=== PATIENT | male | born 1955 | race Caucasian/White ===

== ENCOUNTER 2019-12-20 08:19 | Outpatient (CLI) | payer MEDICARE, SELFPAY ==
[2019-12-20 09:18] LABS: Basophils % 0.5 %; Eosinophils # 0.1 10^3/uL (0.0-0.8); Eosinophils % 1.6 %; Hematocrit 45.7 % (42.0-52.0); Hemoglobin 15.5 g/dL (11.7-16.6); Lymphocytes # 1.7 10^3/uL (0.8-4.8); Lymphocytes % 29.3 %; Mean Corpuscular HGB Conc 33.9 g/dL (30.0-36.0); Mean Corpuscular Hemoglobin 30.2 pg (28.0-34.0); Mean Corpuscular Volume 89.1 fL (80-94); Mean Platelet Volume 8.8 fL (7.4-10.4); Monocytes # 0.5 10^3/uL (0.2-0.9); Monocytes % 7.9 %; Neutrophils # 3.4 10^3/uL (1.8-7.7); Neutrophils % 60.5 %; Nucleated Red Blood Cells % 0 %; Platelet Count 366 10^3/cmm (130-400); Red Blood Count 5.13 10^6/uL (4.1-5.3); Red Cell Distribution Width 12.1 % (12.1-15.1); White Blood Count 5.7 10^3/uL (4.0-10.0)
[2019-12-20 09:34] LABS: Albumin Level 4.3 g/dL (3.5-5.2); Chloride 99 mmol/L (98-107); Potassium 4.1 mmol/L (3.5-5.1); Sodium 137 mmol/L (136-145)
[2019-12-20 10:08] LABS: Alanine Aminotransferase 17 U/L (0-41); Alkaline Phosphatase 74 IU/L (40-130); Anion Gap 15.2 (5-19); Aspartate Amino Transferase 19 U/L (0-40); Blood Urea Nitrogen 12 mg/dL (8-23); Calcium 9.5 mg/dL (8.5-10.5); Carbon Dioxide 27 mmol/L (22-29); Globulin 2.7 g/dL (1.3-4.6); Glomerular Filtration Rate 113.5 mL/min (90-130); Glucose 101 mg/dL (65-115); Osmolality Calculated 286 mOsm/kg (285-295); Total Bilirubin 0.5 mg/dL (0.15-1.2)
[2019-12-20 10:55] LABS: Ferritin 272 ng/mL (30-400); Iron 142 ug/dL (59-158); Percent Saturation 79.7 % (20-50); Total Iron Binding Capacity 178 mcg/dl; Unsaturated Iron Binding 36 ug/dL (112-347)
--- NOTE | 2019-12-20 19:52 | ONC CON_ITS ---
Dr. Arroyo New Patient Note Patient: Milan Winters Unit #: [id number]: 1955 Dicatated By: Jake Arroyo M.D.Date of Visit: Dec 20, 2019 Onc MED New Patient/Consult Referring Physician: Lamonte Medrano Chief Complaint: Hemochromatosis/hepatitis C History of Present Illness: This is a 64 year-old man with hereditary hemochromatosis. He has additional history of treated hepatitis C. The hemochromatosis was initially diagnosed in 2002. He was living in [place] at that time, and I did not get those records. I did not have results of his HFE gene study, if one had even been done. His initial ferritin level apparently was greater than 3000. He was managed with phlebotomies. I had seen him initially in 2003, and had continued his phlebotomy program. However, during the course of his treatment, he was found to have converted to positive hepatitis C serology. He was treated with a course of ribavirin and pegylated interferon between October of 2005 and December of 2006. The treatment was complicated by worsening depression and acute psychosis, but that was able to be managed adequately and he did have a good clinical response to the treatment. His quantitative hepatitis C PCR had remained undetectable during his subsequent followup. He was last seen here in March 2016. He had subsequently left the area, and he has just recently returned. His other medical illnesses, in addition to the chronic anxiety/depression, include severe COPD and degenerative arthritis. He also had recurrent episodes of nausea/vomiting. An upper GI endoscopy in January 2014 showed evidence of bile reflux. He had undergone cholecystectomy back in July 2005. In the past, it was suspected that he had coronary artery disease. A coronary angiogram in January 2004 showed some mild muscle bridging in the mid left anterior descending coronary artery, but the coronary arteries otherwise appeared normal. His only other surgery was a right inguinal hernia repair at age 17. He has a history of smoking 2 packs of cigarettes daily. He quit smoking in 2001. He is seen for a follow-up visit at his request. He has some records from a clinic in [place]. Included are laboratory studies from February 2019. At that time his CBC showed hemoglobin 16.2 g with hematocrit 53%. The white blood cell count was 4700 and the platelet count was 271,000. Comprehensive metabolic profile showed normal renal function with BUN 12 and creatinine 0.85 mg/dL. The liver enzymes were normal. His TSH level was normal at 1.68 mIU/L and his hemoglobin A1c was normal at 4.9%. His serum iron studies show transferrin saturation 46%. The serum ferritin was a little above target at 105 ng/mL. He has not been feeling good generally. He has limited activity due to his shortness of breath and back pain. He is trying to do some walking. He really is not capable of any work activity. His ECOG score is 2. His appetite is been okay, but he does not eat very well, mainly due to early satiety. He has had weight loss. He indicates that in January 2018 he weighed 198 pounds. That is very unlikely to be accurate, as we documented a weight of 151 pounds at his visit in March 2016. He has, nonetheless, lost weight. He does not have fever. He does have night sweating, which is chronic. He has shortness of breath and he has cough productive of white sputum. He is on a generic Advair inhaler and Spiriva along with a rescue inhaler. He does not complain of chest pain. He had been having recurrent episodes of nausea/vomiting, and the previous EGD in 2013 had shown evidence of bile reflux. As noted, he does have early satiety, but he currently is not having nausea or acid reflux symptoms and his bowel function has been normal. He does report having more frequent urination. He also has developed a new hernia on the right side. He has pain in his lower back on the right side. It radiates around to the flank area. He has had prior neck and back injuries. He also has pains in his hands all the time. He does not complain of headache. He has occasional lightheadedness. He says he does not have much feeling in his fingertips. He has no other focal neurologic symptoms. Past Medical History: His medical history consists of chronic obstructive pulmonary disease, degenerative arthritis, depression, hereditary hemochromatosis, and treated hepatitis C. Past Surgical History: His surgical/procedural history includes right inguinal hernia repair at age 17, cholecystectomy in 2005, and EGD in 2013. Medications: Spiriva HandiHaler 1 (18 mcg) Capsule Inhalation daily, Ventolin HFA 1 (108 (90 Base) mcg/act) Aerosol, solution Inhalation daily PRN, Wixela Inhub 1 Puff(s) (of 500-50 mcg/dose) Aerosol Powder, Breath Activated Inhalation b.i.d. Allergies: No Known Allergies. Social History: Mr. Winters is legally . He has a history of smoking 2 packs of cigarettes daily. He quit in 2001. He had significant alcohol use in the past, but he quit in 1980. He now just has a very occasional chelo for medicinal purposes. Family History: His family history is significant for a brother and 2 nephews with hemochromatosis. Mother with hepatobiliary cancer. Review Of Symptoms: Constitutional - He has very limited activity. Appetite is not bad, but he has early satiety. He has had significant weight loss, in the ranage of 70 lbs since 2018. No fever. He does have some night sweating. ECOG score is 2, Eyes - He thinks he has a cataract in his left eye, ENMT - No hearing loss or tinnitus. Lately he has had sinus congestion/drainage. No mouth sores. No sore throat or difficulty swallowing, Hematologic/Lymphatic - He has easy bruising, Respiratory - He has shortness of breath. He has chronic cough productive of clear sputum. No pleuritic pain or hemoptysis, Cardiovascular - No angina pain. No palpitations, Gastrointestinal - Currently no nausea or vomiting. No heartburn or acid reflux. No diarrhea or constipation. No blood in the stool or black stools, Genitourinary (M) - No dysuria or hematuria. He is voiding more frequently now. No urgency or incontinence. He has a hernia in the right lower quadrant/right groin area. He has some pain in that area, Musculoskeletal - He has pain in his lower back on the right side. It radiates around to the flank area. He also has pain in both hands, Integumentary - No skin rash or other skin changes, Neurologic - No headache. He occasionally feels lightheaded. He does not have much feeling in his fingertips. He has no other focal neurologic symptoms, Psychiatric - No anxiety. He does have some depression. He periodically wakes up during the night-. Vital Signs: Performed on Dec 20, 2019 09:53: 10, 19.13, 1.68 sq.m, 68.00 in, 99 %, 90 /min, 24 /min, 116/82 mm(hg), 98.5 F, 125.8 lbs (LOW), and Performed on Apr 22, 2015 09:07: 0. Physical Examination: Constitutional - He appears chronically ill, Eyes - Sclerae nonicteric. Conjunctivae clear, ENMT - No lesions noted in the oral cavity, Hematologic/Lymphatic - No cervical, clavicular, or axillary adenopathy, Respiratory - Lungs show diminished air movement with coarse breath sounds bilaterally, Cardiovascular - Heart rhythm is regular. There is no murmur, gallop, or rub noted, Abdomen - Soft with evidence of wasting. Liver and spleen are not enlarged. There is no abdominal mass or ascites noted and there is no inguinal adenopathy. There is a hernia in the medial right lower quadrant near the groin, Back/Spine - No spine or CVA tenderness noted, Extremities - No edema. Pedal pulses are palpable bilaterally, Integumentary - No rashes. No suspicious skin lesions noted, Neurologic - No focal neurologic deficits noted. Impression: 1. Patient with hereditary hemochromatosis. His disease has been managed very well with phlebotomy. His serum iron studies and ferritin from February 2019 were slightly above target range. 2. He has severe COPD. 3. He has had weight loss and declining performance status. This may just be due to the COPD, but I am also concerned about the possibility of underlying malignancy, as he also had previously been on surveillance for a right upper lobe noncalcified pulmonary nodule. It was stable as of his CT in February 2016. 4. He underwent treatment for hepatitis C with ribavirin/pegylated interferon from October 2005 through December 2006. 5. He has history of major depression which worsened during the hepatitis C treatment. 6. He has degenerative arthritis/degenerative disease of the spine with chronic back pain. 7. He has a new right lower quadrant/inguinal hernia. Plan: The patient will have laboratory studies today to include CBC, comprehensive metabolic profile, serum iron studies and ferritin, and a quantitative PCR for hepatitis C. He will be scheduled for CT scans of the chest and of the abdomen/pelvis. He will have further evaluation as indicated, and he also will restart phlebotomies for the hemochromatosis as indicated. He will continue his current medications which are limited to the generic Advair 5/500 twice daily, Spiriva 18 mcg daily, and the rescue inhaler as needed. Signed By: Jake Arroyo M.D. <<Signature on File>>
[2019-12-21 16:21] LABS: HEP C RNA Viral Load Quant <1.18 NOT DETECTED Log IU/mL (NOT DETECTED); HEP C RNA Viral Load Quant <15 NOT DETECTED IU/mL (NOT DETECTED)
== END 2019-12-20 08:20 | disposition home or self-care (01) ==
LOC: ONCMED 08:31
PROVIDERS: Visit Provider Internal Medicine Medical Oncology
DX: E83.110 Hereditary hemochromatosis (principal); J44.9 Chronic obstructive pulmonary disease, unspecified; R63.4 Abnormal weight loss; Z86.19 Personal history of other infectious and parasitic diseases; F32.9 Major depressive disorder, single episode, unspecified; M47.9 Spondylosis, unspecified; R10.31 Right lower quadrant pain; K40.90 Unilateral inguinal hernia, without obstruction or gangrene, not specified as recurrent
CPT/HCPCS: 36415; 80053; 82728; 83540; 83550; 85025; 87522; 99205

== ENCOUNTER 2019-12-27 07:47 | Outpatient (CLI) | payer MEDICARE, MEDICAID, SELFPAY ==
--- NOTE | 2019-12-27 08:00 | CT_ITS ---
WS: [id number] CT CHEST, ABDOMEN, AND PELVIS TECHNIQUE: Contrast-enhanced CT of the chest, abdomen, and pelvis with coronal and sagittal reformatt ed images. CLINICAL INFORMATION: SHORTNESS OF BREATH, COUGH, RLQ PAIN, WEIGHT LOSS COMPARISON: CT chest March 10, 2016 DLP: 1632.[address] scans at [facility] use at least one of these dose optimization techniques: automat ed exposure control; mA and/or kV adjustment per patient size (includes targeted exams where dose is matched to clinical indication); or iterative reconstruction. CT CHEST: Stable pulmonary nodule in the right upper lobe. Additional new spiculated nodule in the right upper lobe measuring 9.6 mm. Adjacent noncalcified nodule measuring 6 mm. Advanced chronic emphysematous change. Additional new noncalcified nodules in the left lower lobe measuring 7 mm and 3 mm. Subsegmental atel ectasis in the left lower lobe posteriorly. Fibrosis in the lingula. No mediastinal or hilar lymphade nopathy. Normal caliber thoracic aorta. No axillary lymphadenopathy. CT ABDOMEN AND PELVIS: Low-attenuation lesions along the falciform ligament and right hepatic lobe likely focal fat and smal l hemangiomas. Cholecystectomy clips. Normal portal vein and splenic vein. Normal spleen. Normal GE j unction. Normal pancreas. Adrenal glands are normal. Normal renal parenchymal enhancement. No hydrone phrosis. Small right renal cyst. Normal caliber abdominal aorta. Aortic calcification. Sigmoid diverticulosis. Incidental fat-containing umbilical hernia. Calcified prostate. Partially vis ualized low-attenuation peripheral enhancing collection involving the perineum measuring 5.4 x 3.1 CM . 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 CT/CT chest abd pel w con* IMPRESSION: 1. New spiculated nodule right upper lobe measuring 9.6 mm nonspecific and sma ll neoplasm is not excluded. This can be further evaluated with PET/CT. Recomme nd [address] follow-up. 2. Additional new 6 mm noncalcified right upper lobe nodule. Additional smalle r new nodules in the left lower lobe measuring 3 and 7 mm. Recommend 3-6 month follow-up. 3. Additional stable 5 mm nodule in the right upper lobe. 4. Advanced chronic emphysematous changes. 5. Mild diffuse fatty infiltration the liver with a few small low-attenuation lesions likely focal fat and small hemangiomas. 6. Incidental right renal cyst. 7. No adenopathy in the abdomen or pelvis. 8. Periurethral cystic lesion partially visualized measuring 5.4 x 3.1 cm like ly Cowper's duct cyst.
[2019-12-27] MEDS: iohexol 300 mg/mL 50 mL Btl PO (09:53)
[2019-12-27] MEDS: iohexol 300 mg/mL 100 mL Btl IV (10:10)
[2019-12-27 12:28] LABS: Basophils % 0.5 %; Eosinophils # 0.1 10^3/uL (0.0-0.8); Eosinophils % 1.6 %; Hematocrit 42.5 % (42.0-52.0); Hemoglobin 14.8 g/dL (11.7-16.6); Lymphocytes # 1.6 10^3/uL (0.8-4.8); Lymphocytes % 41.1 %; Mean Corpuscular HGB Conc 34.8 g/dL (30.0-36.0); Mean Corpuscular Hemoglobin 30.6 pg (28.0-34.0); Mean Platelet Volume 9.3 fL (7.4-10.4); Monocytes # 0.3 10^3/uL (0.2-0.9); Neutrophils # 1.9 10^3/uL (1.8-7.7); Neutrophils % 49.8 %; Nucleated Red Blood Cells % 0 %; Platelet Count 265 10^3/cmm (130-400); Red Blood Count 4.83 10^6/uL (4.1-5.3); Red Cell Distribution Width 12.3 % (12.1-15.1); White Blood Count 3.8 10^3/uL (4.0-10.0)
== END 2019-12-27 07:48 | disposition home or self-care (01) ==
LOC: RADWPI 07:50 → ONCMED 11:29
PROVIDERS: Visit Provider Internal Medicine Medical Oncology
DX: E83.110 Hereditary hemochromatosis (principal); B19.20 Unspecified viral hepatitis C without hepatic coma; F32.9 Major depressive disorder, single episode, unspecified; J44.9 Chronic obstructive pulmonary disease, unspecified
CPT/HCPCS: 71260; 74177; 85025; 99195; Q9967

== ENCOUNTER 2020-01-05 15:15 | Emergency (ER) | payer MEDICARE, SELFPAY ==
[2020-01-05 15:51] VITALS: BP 96/63; PULSE 77; RESP 18; TEMP 36.6; O2SAT 97; BMI 21.2
--- NOTE | 2020-01-05 17:22 | ED_ITS ---
HPI - Abdominal Pain General: Chief Complaint: Abdominal Pain Stated Complaint: poss hernia Time Seen by Provider: 01/05/20 17:20 History of Present Illness: Associated Symptoms: Denies chills, constipation, diarrhea, dysuria, fever(s), hematochezia, hematuria, nausea and vomiting Review of Systems Const: Denies: fever(s), chills or fatigue Eyes: Denies: change in vision or eye discomfort ENMT: Denies: throat pain, odynophagia, nasal discharge or nasal congestion Card: Denies: chest pain, palpitations, edema, swelling of feet/ankles, dyspnea on exertion or orthopnea Resp: Denies: dyspnea, productive cough or non-productive cough GI: Denies: abdominal pain, nausea, vomiting, diarrhea, constipation or hematochezia : Denies: flank pain, difficulty urinating, dysuria or hematuria Musc: Denies: neck pain, back pain or extremity swelling Skin/Breast: Denies: rash or new lesions Neuro: Denies: headache(s), numbness in extremities or weakness in extremities PFSH ED PFSH: Social History Smoking and tobacco status: former smoker Physical Exam Const: COMMON NORMALS: patient oriented x3 HENMT: COMMON NORMALS: normocephalic HEAD & SCALP: normocephalic MOUTH: Normal oral and palatal mucosa present THROAT: posterior oropharynx normal and uvula midline Neck/C-Spine: COMMON NORMALS: supple GENERAL: Yes normal visual inspection Resp: COMMON NORMALS: normal respiratory effort, No retractions, No use of accessory muscles and clear to auscultation bilaterally AUSCULTATION: clear to auscultation bilaterally Cardio: COMMON NORMALS: regular rate, regular rhythm, S1 normal heart sound p resent, S2 normal heart sound present, No gallops present (Cardio), No clicks present (Cardio), No murmurs present (Cardio) and Peripheral pulses 2+ throughout RATE: regular rate RHYTHM: regular rhythm HEART SOUNDS: S1 normal heart sound present and S2 normal heart sound present PERIPHERAL PULSES: Peripheral pulses 2+ throughout GI: COMMON NORMALS: Normal to inspection, nondistended, normoactive bowel sounds present, Soft to palpation, non-tender and no masses PALPATION: Yes Soft to palpation : COMMON NORMALS: Yes no CVA tenderness BLADDER/KIDNEY EXAM: Yes no CVA tenderness Back/Pelvis: COMMON NORMALS: no CVA tenderness Neuro: COMMON NORMALS: patient oriented x3 GAIT: Yes Normal gait present Course Vital Signs: Vital signs: Vital Signs Temperature 97.8 F 01/05/20 15:51 Pulse Rate 77 01/05/20 15:51 Respiratory Rate 18 01/05/20 15:51 Blood Pressure 96/63 01/05/20 15:51 Pulse Oximetry 97 01/05/20 15:51 Coding Level of Care Code ED [employer] for Alissa Hinson
--- NOTE | 2020-01-05 17:30 | W.ED.ABDPA2 ---
HPI - Abdominal Pain General: Chief Complaint: Abdominal Pain Stated Complaint: poss hernia Time Seen by Provider: 01/05/20 17:20 History of Present Illness: HPI narrative: Patient is a 64-year-old male who comes to the ED with abdominal pain. The abdominal pain is located in the right groin area and says he has a hernia. It started back in October and has since gotten larger and more painful. He is able to reduce it on his own. He patient did have a scheduled evaluation with the surgeon up in [place] due to COVID appointment was canceled. Now patient is moved back to the [facility] and would like to get hernia fixed. MD elicited complaint: abdominal pain Pertinent past history: other (Left Inguinal hernia) Onset (ago): month(s) (Pt first noticed in back in October) Pain Consistency: intermittent Location: Groin (Right ) Severity: moderate Pain scale (0-10): 10 (Patient states when the hernia pops out when he is moving around or coughing the pain is a 10 out of 10.) Quality: aching and sharp Radiation: none Migration to: no migration Exacerbating factors: movement Relieving factors: rest and other (reducing the hernia relieves the pain.) Associated Symptoms: Denies chills, constipation, diarrhea, dysuria, fever(s), hematochezia, hematuria, nausea and vomiting Review of Systems Const: Denies: fever(s), chills or fatigue Eyes: Denies: change in vision or eye discomfort ENMT: Denies: throat pain, odynophagia, nasal discharge or nasal congestion Card: Denies: chest pain, palpitations, edema, swelling of feet/ankles, dyspnea on exertion or orthopnea Resp: Denies: dyspnea, productive cough or non-productive cough GI: Reports: abdominal pain; Denies: nausea, vomiting, diarrhea, constipation or hematochezia : Denies: flank pain, difficulty urinating, dysuria or hematuria Musc: Denies: neck pain, back pain or extremity swelling Skin/Breast: Denies: rash or new lesions Neuro: Denies: headache(s), numbness in extremities or weakness in extremities PFSH ED PFSH: Social History Smoking and tobacco status: former smoker Physical Exam Const: COMMON NORMALS: no acute distress, patient oriented x3 and alert GENERAL APPEARANCE: cooperative and comfortable HENMT: COMMON NORMALS: normocephalic HEAD & SCALP: normocephalic MOUTH: Normal oral and palatal mucosa present THROAT: posterior oropharynx normal and uvula midline Eye: COMMON NORMALS: Equal, round and reactive pupils present PUPIL: Yes Equal, round and reactive pupils present Neck/C-Spine: COMMON NORMALS: supple GENERAL: Yes normal visual inspection Resp: COMMON NORMALS: normal respiratory effort, No retractions, No use of accessory muscles and clear to auscultation bilaterally AUSCULTATION: clear to auscultation bilaterally Cardio: COMMON NORMALS: regular rate, regular rhythm, S1 normal heart sound present, S2 normal heart sound present, No gallops present (Cardio), No clicks present (Cardio), No murmurs present (Cardio) and Peripheral pulses 2+ throughout RATE: regular rate RHYTHM: regular rhythm HEART SOUNDS: S1 normal heart sound present and S2 normal heart sound present PERIPHERAL PULSES: Peripheral pulses 2+ throughout GI: COMMON NORMALS: Normal to inspection, nondistended, normoactive bowel sounds present, Soft to palpation and no masses INSPECTION: No visible herniation PALPATION: Yes Soft to palpation and Yes Tenderness to palpation present (GI) Details: other (right groin-mild) OTHER: No mass or visible hernia seen. when pt stood up and cough i was able to feel a small bulge in the right groin. : COMMON NORMALS: Yes no CVA tenderness BLADDER/KIDNEY EXAM: Yes no CVA tenderness Back/Pelvis: COMMON NORMALS: no CVA tenderness Extremity: COMMON NORMALS: normal to inspection and no pedal edema Neuro: COMMON NORMALS: patient oriented x3 SENSORIUM/ORIENTATION: Yes alert GAIT: Yes Normal gait present Skin: COMMON NORMALS: no rashes or lesions noted GENERAL SKIN EXAM: no rashes or lesions noted and dry skin Course Vital Signs: Vital signs: Vital Signs Temperature 97.8 F 01/05/20 15:51 Pulse Rate 98 01/05/20 21:25 Respiratory Rate 16 01/05/20 21:25 Blood Pressure 121/85 01/05/20 21:25 Pulse Oximetry 99 01/05/20 21:25 MDM - Abdominal Pain MDM Narrative: Medical decision making narrative: Patient is a 64-year-old male who comes to the ED with right inguinal hernia. Abdominal exam showed no visible herniation and patient had mild tenderness in the right parietal region. No hernia felt upon palpation. CBC and CMP and lactate were all unremarkable and normal. CT of the abdomen showed a referral was placed with case management for patient to see general surgery. Patient was told to limit strenuous activity. He was told to come back to the ED if he has any worsening symptoms and he is unable to reduce hernia. Patient understood and agreed with plan. Lab Data: Attestation: I reviewed the patient's lab results. Labs: Lab Results 01/05/20 01/05/20 01/05/20 Range/Units 17:32 17:32 17:32 WBC 4.0 (4.0-10.0) 10^3/ uL RBC 4.62 (4.1-5.3) 10^6/u L Hgb 13.9 (11.7-16.6) g/dL Hct 42.2 (42.0-52.0) % MCV 91.3 (80-94) fL MCH 30.1 (28.0-34.0) pg MCHC 32.9 (30.0-36.0) g/dL RDW 13.5 (12.1-15.1) % Plt Count 247 (130-400) 10^3/c mm MPV 8.9 (7.4-10.4) fL Neut % (Auto) 46.0 % Lymph % (Auto) 43.2 % [place] % (Auto) 7.3 % Eos % (Auto) 3.0 % Baso % (Auto) 0.5 % Neut # (Auto) 1.8 (1.8-7.7) 10^3/u L Lymph # (Auto) 1.7 (0.8-4.8) 10^3/u L [place] # (Auto) 0.3 (0.2-0.9) 10^3/u L Eos # (Auto) 0.1 (0.0-0.8) 10^3/u L Baso # (Auto) 0.0 (0.0-0.1) 10^3/u L Nucleated RBC % (a uto) 0 % Nucleated RBCs # 0.0 /100WBC Sodium 139 (136-145) mmol/L Potassium 4.4 (3.5-5.1) mmol/L Chloride 102 (98-107) mmol/L Carbon Dioxide 29 (22-29) mmol/L Anion Gap 12.4 (5-19) BUN 12 (8-23) mg/dL Creatinine 0.7 (0.7-1.2) mg/dL GFR Calculation 113.5 (90-130) mL/min Glucose 93 (65-115) mg/dL Calculated Osmolal ity 284 L (285-295) mOsm/k g Lactate 0.5 (0.5-2.2) mmol/L Calcium 9.3 (8.5-10.5) mg/dL Total Bilirubin 0.3 (0.15-1.2) mg/dL AST 23 (0-40) U/L ALT 15 (0-41) U/L Alkaline Phosphata se 79 (40-130) IU/L Total Protein 6.6 (6.6-8.7) g/dL Albumin 4.4 (3.5-5.2) g/dL Globulin 2.2 (1.3-4.6) g/dL Imaging Data ^: CT Abd/Pel: Attestation: I personally reviewed and interpreted this imaging study as follows: Radiologist's impression: [place] [address] CT Scan Report Signed Patient: Milan Winters Unit #: [id number] : 1955 Age/Sex: 64 / M ADM Date: 01/05/20 Loc: ER Room/Bed: Attending Dr: Ordering Provider/Ordering MD: Kendrick Altman Date of Service: 01/05/20 Procedure(s): CT abdomen pelvis w con* [id number] Accession Number(s): [id number] Report Number: [id number] PROCEDURE INFORMATION: Exam: CT Abdomen And Pelvis With Contrast Exam date and time: 01/05/2020 6:28 PM Age: 64 years old Clinical indication: Abdominal pain; Localized; Right lower quadrant (rlq); Prior surgery; Surgery date: 6+ months; Surgery type: Hernia, gb; Patient HX: C/O rlq abd pain - known inguinal hernia; Additional info: Abdominal pain, right inguinal hernia TECHNIQUE: Imaging protocol: Computed tomography of the abdomen and pelvis with intravenous contrast. Radiation optimization: All CT scans at this facility use at least one of these dose optimization techniques: automated exposure control; mA and/or kV adjustment per patient size (includes targeted exams where dose is matched to clinical indication); or iterative reconstruction. Contrast material: OMNI 300; Contrast volume: 95 ml; Contrast route: INTRAVENOUS (IV); COMPARISON: No relevant prior studies available. RADIATION DOSE METRICS: Total DLP (mGy-cm): 474.39 FINDINGS: Liver: Normal. No mass. Gallbladder and bile ducts: Prior cholecystectomy. Pancreas: Normal. No ductal dilation. Spleen: Normal. No splenomegaly. Adrenals: Normal. No mass. Kidneys and ureters: 8 mm right renal simple appearing cortical cyst. Stomach and bowel: Sigmoid colon contain several diverticula. No evidence for acute diverticulitis. Appendix: Normal appendix. Intraperitoneal space: Unremarkable. No free air. No significant fluid collection. Vasculature: Mild aortoiliac atherosclerotic calcification. Tortuous iliac arteries. Lymph nodes: Unremarkable. No enlarged lymph nodes. Bladder: Unremarkable as visualized. Reproductive: Central prostatic calcifications, chronic. Bones/joints: Unremarkable. No acute fracture. Soft tissues: No hernia evident. CT/CT abdomen pelvis w con* [id number] IMPRESSION: 1.) No acute process evident. 2.) Prior cholecystectomy. Chronic findings as described above. COMMENTS: Consistent with the [employer]'s Incidental Findings Committee white paper (J Am Otto Radiol 2018): Any incidental renal lesion less than 1.0 cm or classified as too small to characterize, or any incidental cystic renal lesion characterized as simple-appearing, is likely benign. No follow-up imaging is recommended for these lesions per consensus recommendations based on imaging criteria. Radiation Dose CTDIVOL = (mGy): DLP = 474.39 (mGy-cm) Dictated By: Navid Kingsley MD Signed By: Navid Kingsley MD Signed Date/Time: 01/05/201927 DD/ 25 Discharge Plan Discharge Patient Disposition: Home, Self-Care Clinical Impression: Inguinal hernia of right side without obstruction or gangrene Condition: Stable Prescriptions: No Action Wixela Inhub 500-50 mcg/dose blister with device See Rx Instructions .ROUTE .COMPLEX RF: 0 ProAir HFA 90 mcg/actuation HFA aerosol inhaler See Rx Instructions .ROUTE .COMPLEX RF: 0 Ventolin HFA 90 mcg/actuation Hfa Aerosol Inhaler 1 puff INHALATION QID PRN (Reason: Shortness Of Breath) RF: 0 Spiriva with HandiHaler 18 mcg capsule, w/inhalation device See Rx Instructions .ROUTE .COMPLEX RF: 0 Discharge Orders: Discharge Order (Routine); Ordered 01/05/20 Ordered By: Kendrick Altman Discharge Diet: Regular Discharge Activity: Increase activity as tolerated Patient Instructions: Inguinal Hernia (ED) Activity Restrictions/Additional Instructions: He should be getting contacted in the next week to set up an appointment with a general surgeon. Try to limit lifting and strenuous activity until seen by general surgeon. Take ibuprofen or Tylenol for pain. Return to ED for reevaluation if symptoms worsen. Discharge Date/Time: 01/05/20 21:29 Coding Level of Care Code ED Senior Physical Therapist for Alissa Fwyesenia Exam Comprehensive
[2020-01-05 17:38] LABS: Basophils % 0.5 %; Eosinophils # 0.1 10^3/uL (0.0-0.8); Hematocrit 42.2 % (42.0-52.0); Hemoglobin 13.9 g/dL (11.7-16.6); Lymphocytes # 1.7 10^3/uL (0.8-4.8); Lymphocytes % 43.2 %; Mean Corpuscular HGB Conc 32.9 g/dL (30.0-36.0); Mean Corpuscular Hemoglobin 30.1 pg (28.0-34.0); Mean Corpuscular Volume 91.3 fL (80-94); Mean Platelet Volume 8.9 fL (7.4-10.4); Monocytes # 0.3 10^3/uL (0.2-0.9); Monocytes % 7.3 %; Neutrophils # 1.8 10^3/uL (1.8-7.7); Nucleated Red Blood Cells % 0 %; Platelet Count 247 10^3/cmm (130-400); Red Blood Count 4.62 10^6/uL (4.1-5.3); Red Cell Distribution Width 13.5 % (12.1-15.1)
--- NOTE | 2020-01-05 17:38 | CTR_ITS ---
PROCEDURE INFORMATION: Exam: CT Abdomen And Pelvis With Contrast Exam date and time: 01/05/2020 6:28 PM Age: 64 years old Clinical indication: Abdominal pain; Localized; Right lower quadrant (rlq); Prior surgery; Surgery date: 6+ months; Surgery type: Hernia, gb; Patient HX: C/O rlq abd pain - known inguinal hernia; Additional info: Abdominal pain, right inguinal hernia TECHNIQUE: Imaging protocol: Computed tomography of the abdomen and pelvis with intravenous contrast. Radiation optimization: All CT scans at this facility use at least one of these dose optimization techniques: automated exposure control; mA and/or kV adjustment per patient size (includes targeted exams where dose is matched to clinical indication); or iterative reconstruction. Contrast material: OMNI 300; Contrast volume: 95 ml; Contrast route: INTRAVENOUS (IV); COMPARISON: No relevant prior studies available. RADIATION DOSE METRICS: Total DLP (mGy-cm): 474.39 FINDINGS: Liver: Normal. No mass. Gallbladder and bile ducts: Prior cholecystectomy. Pancreas: Normal. No ductal dilation. Spleen: Normal. No splenomegaly. Adrenals: Normal. No mass. Kidneys and ureters: 8 mm right renal simple appearing cortical cyst. Stomach and bowel: Sigmoid colon contain several diverticula. No evidence for acute diverticulitis. Appendix: Normal appendix. Intraperitoneal space: Unremarkable. No free air. No significant fluid collection. Vasculature: Mild aortoiliac atherosclerotic calcification. Tortuous iliac arteries. Lymph nodes: Unremarkable. No enlarged lymph nodes. Bladder: Unremarkable as visualized. Reproductive: Central prostatic calcifications, chronic. Bones/joints: Unremarkable. No acute fracture. Soft tissues: No hernia evident. CT/CT abdomen pelvis w con* [id number] IMPRESSION: 1.) No acute process evident. 2.) Prior cholecystectomy. Chronic findings as described above. COMMENTS: Consistent with the [employer]'s Incidental Findings Committee white paper (J Am Otto Radiol 2018): Any incidental renal lesion less than 1.0 cm or classified as too small to characterize, or any incidental cystic renal lesion characterized as simple-appearing, is likely benign. No follow-up imaging is recommended for these lesions per consensus recommendations based on imaging criteria. Radiation Dose CTDIVOL = (mGy): DLP = 474.39 (mGy-cm)
[2020-01-05 17:51] LABS: Alanine Aminotransferase 15 U/L (0-41); Albumin Level 4.4 g/dL (3.5-5.2); Alkaline Phosphatase 79 IU/L (40-130); Anion Gap 12.4 (5-19); Aspartate Amino Transferase 23 U/L (0-40); Blood Urea Nitrogen 12 mg/dL (8-23); Calcium 9.3 mg/dL (8.5-10.5); Carbon Dioxide 29 mmol/L (22-29); Chloride 102 mmol/L (98-107); Creatinine Clr Calc Pharmacy 87.4875; Globulin 2.2 g/dL (1.3-4.6); Glomerular Filtration Rate 113.5 mL/min (90-130); Glucose 93 mg/dL (65-115); Osmolality Calculated 284 mOsm/kg (285-295); Potassium 4.4 mmol/L (3.5-5.1); Sodium 139 mmol/L (136-145); Total Bilirubin 0.3 mg/dL (0.15-1.2); Total Protein 6.6 g/dL (6.6-8.7)
[2020-01-05 17:52] LABS: Lactate (Lactic Acid level) 0.5 mmol/L (0.5-2.2)
[2020-01-05] MEDS: ondansetron 2 mg/ML SDV 2 mL 4 MG IVP (18:11)
[2020-01-05 18:13] VITALS: RESP 16; O2SAT 96
[2020-01-05] MEDS: morphine 4 mg/mL SDV 1 mL IVP (18:13)
[2020-01-05] MEDS: iohexol 300 mg/mL 100 mL Btl IV (18:38)
--- NOTE | 2020-01-05 19:07 | PC.NURSE ---
Patient report received from FRANCISCA Glasgow and care transferred to FRANCISCA Keller
[2020-01-05 19:11] VITALS: BP 141/83; PULSE 84; RESP 16; O2SAT 98
[2020-01-05 21:24] VITALS: BP 132/89; PULSE 72; RESP 16; O2SAT 99
[2020-01-05 21:25] VITALS: BP 121/85; PULSE 98; RESP 16; O2SAT 99
--- NOTE | 2020-01-07 12:01 | DCPLANNER ---
homeowner association manager had order to schedule a follow up appointment for patient with general surgery. homeowner association manager called [facility], spoke with Monica, gave clinic patients information. homeowner association manager was told that patients information would be printed and reviewed. Clinic will call patient with appointment information.
--- NOTE | 2020-01-10 13:40 | DCPLANNER ---
Patient has a follow up appointment scheduled for Tuesday, January 16, [address] at 1:[address] Jimenez. Clinic will call patient with appointment information.
--- NOTE | 2020-01-17 10:53 | DCPLANNER ---
Patient did attend appointment scheduled for 01.16.20 with [facility].
== END 2020-01-05 21:29 | disposition home or self-care (01) ==
PROVIDERS: Physician Assistant; Emergency Provider Physician Assistant
DX: K40.90 Unilateral inguinal hernia, without obstruction or gangrene, not specified as recurrent (principal); Z87.891 Personal history of nicotine dependence
CPT/HCPCS: 12345; 36415; 74177; 80053; 83605; 85025; 96361; 96374; 96375; 99283; J2270; J2405; J7030; Q9967

== ENCOUNTER 2020-02-09 07:44 | Emergency (ER) | payer MEDICARE, MEDICAID, SELFPAY ==
[2020-02-09 07:45] VITALS: BMI 21.2
[2020-02-09 07:53] VITALS: BP 154/104; PULSE 70; RESP 18; TEMP 36.8; O2SAT 96
--- NOTE | 2020-02-09 07:56 | W.ED.MALEGU ---
HPI - Male Genitourinary General: Chief complaint: Urogenital-Male Stated complaint: HERNIA Time Seen by Provider: 02/09/20 07:56 Source: patient Mode of arrival: ambulatory Limitations: physical limitation (due to pain ) History of Present Illness: HPI Narrative: Hernia that occured in right groin in October; progressively worse. Able to reduce for short time but only temporary relief. Continues to become more painful Location: right inguinal region Review of Systems General: Reports: 10 or more systems reviewed and unremarkable except in HPI and below GI: Reports: change in bowel habits : Reports: difficulty urinating PFS ED PFSH: Medical History COPD (chronic obstructive pulmonary disease) Family History Denies family history of Anesthesia complication Bleeding disorder Social History Smoking and tobacco status: former smoker Physical Exam Const: COMMON NORMALS: no acute distress, patient oriented x3, no limitations and alert GENERAL APPEARANCE: cooperative and comfortable ORIENTATION/CONSCIOUSNESS: Yes awake, Yes oriented to person, Yes oriented to place and Yes oriented to time HENMT: COMMON NORMALS: normocephalic, atraumatic, external ears normal, EAC's normal, TM's normal bilaterally and Normal external nose present HEAD & SCALP: normal to inspection, normocephalic and atraumatic FACE & SINUS: normal facial exam, sinuses nontender and face symmetric NOSE: Normal external nose present, Normal nares present and No nasal discharge present EXTERNAL EAR: Yes external ears normal EXTERNAL AUDITORY CANAL: EAC's normal TYMPANIC MEMBRANE: TM's normal bilaterally MOUTH: Normal oral and palatal mucosa present, lip normal and tongue normal THROAT: posterior oropharynx normal, tonsils normal and uvula midline Eye: COMMON NORMALS: Equal, round and reactive pupils present, EOMs intact bilaterally and conjunctivae normal GENERAL EYE: appearance normal, both eyes and all related structures and normal light reflex EYELID: eyelids normal CONJUNCTIVA: Yes conjunctivae normal PUPIL: Yes Equal, round and reactive pupils present EOM: Yes EOM abnormal DIRECT OPHTHALMOSCOPY: Yes normal light reflex Neck/C-Spine: COMMON NORMALS: full ROM, no lymphadenopathy, supple, no meningeal signs, no JVD and Thyroid normal GENERAL: Yes normal visual inspection THYROID: Thyroid normal CERVICAL SPINE: Yes cervical ROM normal and Yes normal cervical lordosis Lymph: LYMPHATIC: no lymphadenopathy noted Chest: COMMONS NORMALS: normal inspection of the chest and normal palpation of entire chest wall Resp: COMMON NORMALS: normal respiratory effort, No retractions and clear to auscultation bilaterally AUSCULTATION: clear to auscultation bilaterally Cardio: COMMON NORMALS: no JVD, regular rate, regular rhythm, S1 normal heart sound present, S2 normal heart sound present, No gallops present (Cardio), No clicks present (Cardio), No murmurs present (Cardio), No rub (Cardio) and Peripheral pulses 2+ throughout RATE: regular rate RHYTHM: regular rhythm HEART SOUNDS: S1 normal heart sound present and S2 normal heart sound present PERIPHERAL PULSES: Peripheral pulses 2+ throughout GI: COMMON NORMALS: Normal to inspection, nondistended, normoactive bowel sounds present, Soft to palpation, non-tender and no masses PALPATION: Yes Soft to palpation : COMMON NORMALS: Yes no CVA tenderness BLADDER/KIDNEY EXAM: Yes no CVA tenderness SCROTUM: Yes inguinal hernia Inguinal hernia laterality: right Back/Pelvis: COMMON NORMALS: no CVA tenderness, thoracic and lumbar spine normal to inspection, no thoracic nor lumbar tenderness and thoraco-lumbar ROM normal Extremity: COMMON NORMALS: normal to inspection, full ROM, capillary refill normal, no joint enlargement, no clubbing, cyanosis or edema, no calf tenderness and no pedal edema GENERAL: Yes normal exam except as noted Neuro: COMMON NORMALS: patient oriented x3, moves all extremities, no focal motor deficits, no sensory deficits noted and gait normal SENSORIUM/ORIENTATION: Yes alert, Yes oriented to person, Yes oriented to place and Yes oriented to time MENINGEAL SIGNS: Yes no meningeal signs Psych: COMMON NORMALS: mental status grossly normal, Normal thought process present, cooperative, normal affect, speech normal and activity/motor behavior normal SPEECH: Yes normal speech THOUGHT PROCESS: Normal thought process present Skin: COMMON NORMALS: no rashes or lesions noted, no wounds and turgor normal GENERAL SKIN EXAM: no rashes or lesions noted and turgor normal Course ED course: Will await labs and UA; will attempt reducing right inguinal hernia. Pt states he is in pain as well. Pain meds ordered. Reevaluation(s): Reevaluation #1: Pt refused meds and does not want us to attempt to reduce. He states he wants surgery immediately. I explained that this is not possible as reduction is necessary before we attempt to call a surgeon. He decided he would leave and follow up with Dr. Che. I will ensure social security benefits interviewer set his appt up on Tuesday for a consult. Time: 09:29 Vital Signs: Vital signs: Vital Signs Temperature 98.3 F 02/09/20 07:53 Pulse Rate 70 02/09/20 07:53 Respiratory Rate 18 02/09/20 07:53 Blood Pressure 154/104 02/09/20 07:53 Pulse Oximetry 96 02/09/20 07:53 MDM - Male Lab Data: Labs: Lab Results 02/09/20 Range/Units 08:35 Urine Color Straw (Yellow) Urine Appearance Clear (CLEAR) Urine pH 7 (5-7) Ur Specific Gravit y 1.005 (1.005-1.030) Urine Protein Neg (Negative) Urine Glucose (UA) Norm (Normal) Urine Ketones Negative (Negative) Urine Blood Neg (Negative) Urine Nitrate Negative (Negative) Urine Bilirubin Neg (NEGATIVE) Urine Urobilinogen Norm (Negative) mg/dL Ur Leukocyte Candice ase Negative (Negative) Discharge Plan Discharge Patient Disposition: Home Clinical Impression: Follow up, Inguinal hernia Condition: Stable Prescriptions: No Action Wixela Inhub 500-50 mcg/dose blister with device See Rx Instructions .ROUTE .COMPLEX RF: 0 ProAir HFA 90 mcg/actuation HFA aerosol inhaler See Rx Instructions .ROUTE .COMPLEX RF: 0 Ventolin HFA 90 mcg/actuation Hfa Aerosol Inhaler 1 puff INHALATION QID PRN (Reason: Shortness Of Breath) RF: 0 Spiriva with HandiHaler 18 mcg capsule, w/inhalation device See Rx Instructions .ROUTE .COMPLEX RF: 0 Referrals: Jamar Che MD [Physician] - Discharge Diet: Advance as tolerated Discharge Activity: Increase activity as tolerated Activity Restrictions/Additional Instructions: Follow up with Dr. Che without fail. Coding Level of Care Code ED Manager Statistical for Chg Fwd Exam Comprehensive
--- NOTE | 2020-02-09 08:35 | PC.NURSE ---
As attempting to administer ordered pain medication to pre medicate for [facility] to attempt to reduce hernia, patient refused pain medication, stated last time they gave him morphine, it receeded its self and would not show on CT or was palpatable for physician to evaluate. States he does not want the hernia reduced as he is here to have it surgically repaired, not to temporarily fixed.
[2020-02-09 08:51] LABS: Add Urine Microscopic? NO
[2020-02-09 09:16] LABS: Bilirubin Urine Neg (NEGATIVE); Blood Urine Neg (Negative); Glucose Urine UA Norm (Normal); Ketones Urine Negative (Negative); Leukocyte Esterase Urine Negative (Negative); Nitrate Urine Negative (Negative); Protein Urine Neg (Negative); Specific Gravity, Urine 1.005 (1.005-1.030); Urine Appearance Clear (CLEAR); Urine Color Straw (Yellow); Urobilinogen Urine Norm (Negative); pH Urine 7 (5-7)
== END 2020-02-09 09:00 | disposition home or self-care (01) ==
PROVIDERS: Emergency Provider Nurse Practitioner Family
DX: K40.90 Unilateral inguinal hernia, without obstruction or gangrene, not specified as recurrent (principal); J44.9 Chronic obstructive pulmonary disease, unspecified; Z87.891 Personal history of nicotine dependence
CPT/HCPCS: 12345; 81003; 99282; 99283

== ENCOUNTER 2020-02-20 10:44 | Day surgery (SDC) | payer MEDICARE, MEDICAID, SELFPAY ==
[2020-02-19 12:19] VITALS: BMI 22.3
[2020-02-20 11:09] VITALS: BP 123/66; PULSE 74; RESP 18; TEMP 36.4; O2SAT 93
[2020-02-20] MEDS: sodium chloride 0.9% 1,000 ML 30 ML IV (11:26)
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
--- NOTE | 2020-02-20 11:57 | W.PM.OPSUD ---
Surgery/Procedure H&P Update DATE OF PROCEDURE: February 20, 2020 DATE H&P PERFORMED: 02/12/20 H&P UPDATE INFORMATION: I have reviewed H&P completed within last 30 days, I have examined patient prior to procedure and No changes to prior documentation PREOP DIAGNOSIS: Right inguinal hernia PLANNED PROCEDURE: Operation Date: 02/20/20 12:30 Proposed Procedures p Laparoscopic Inguinal Hernia Repair w/Mesh poss open 96147 K40.90(Not Applicable) - Jamar Che MD
--- NOTE | 2020-02-20 13:00 | SUR.OPER ---
1258 surgery converted to open case.
[2020-02-20 14:09] VITALS: BP 177/112; PULSE 91; RESP 18; TEMP 37.3; O2SAT 98
[2020-02-20 14:15] VITALS: PULSE 82; RESP 19; O2SAT 95
[2020-02-20 14:20] VITALS: BP 142/105; PULSE 83; RESP 16; TEMP 36.8; O2SAT 93
[2020-02-20 14:23] VITALS: BP 146/99; PULSE 79; RESP 18; TEMP 37.1; O2SAT 96
[2020-02-20 14:46] VITALS: BP 144/98; PULSE 78; RESP 19; TEMP 36.8; O2SAT 95
--- NOTE | 2020-02-20 18:52 | P.OP_ITS ---
Operative Report Date of procedure: February 20, 2020 Pre-op Diagnosis: Right inguinal hernia Post-op Diagnosis: Reducible indirect right inguinal hernia Procedure Done: Laparoscopic converted to open right inguinal hernia with Proloop mesh and plug Specimens removed/disposition: None Surgeon: Jamar Che Anesthesia: General Condition: stable Disposition: PACU Procedure: The patient was taken to the operating room. After IV antibiotic was administered, the abdomen was prepped and draped in a sterile manner. Using a 15 blade, a 1.0 cm transverse incision was made infraumbilically on the right side. Subcutaneous tissue was divided using electrocautery and the anterior rectus sheath divided using an 11 blade. The rectus muscle was retracted laterally and the extraperitoneal space identified. A 11 mm port was placed and 12 mm of pneumoperitoneum was created. A 10 mm 30? scope was introduced and the retrorectus space was opened using the camera up to the pubic symphysis and 5 mm ports were placed in the midline, one 2-fingerbreadths above the pubic symphysis and the other midway between these two ports under direct visualization. Blunt dissection was carried out to open up the tissue in the midline and to the pubic symphysis, which was identified. The dissection was then carried laterally where the iliopubic tract was identified. There was no femoral, obturator or direct hernia noted. The inferior epigastric artery was identified and dissection was carried posterior to it and laterally, the space was opened up to the level of the umbilicus superior to the anterior superior iliac spine. I then proceeded to dissect out the spermatic cord and the indirect hernial sac was identified. At this point there was a tear in the peritoneum resulting in loss of working space and a varies needle was placed in the right upper quadrant there was some bleeding while dissecting the sac which made visualization difficult. Due to the poor visualization as well as limited working space I decided to proceed to convert to an open surgery. All ports were removed, the anterior rectus fascia at the infraumbilical port closed using figure of eight 0 Vicryl sutures, subcutaneous tissue approximated using 3-0 Vicryl sutures and skin at all three port sites were closed using running subcuticular 4-0 Monocryl sutures and Dermabond. 10 mL of 0.5% Marcaine was infiltrated around the incisions. A 5 cm incision was made over the right inguinal canal using 15 blade, the subcutaneous tissue, Trey's fascia divided using electrocautery until the external oblique aponeurosis was identified. Using a 15 blade, a small opening was made in the external oblique aponeurosis along the length of the fibers, this was grasped with hemostats and opened using Metzenbaum scissors medially to the external ring and laterally beyond the internal ring. The contents of inguinal canal were dissected free from the wall and a [place] drain was placed around it. There was no direct hernia noted. The cremasteric muscles were divided until the sac could be dissected free from the spermatic cord and reduced into the preperitoneal space. A small plug was placed in the internal ring and sutured using 2-0 Prolene [id number] suture. A Proloop mesh was introduced and using 2-0 Prolene suture the medial edge of the mesh were sutured to the fascia overlying the pubic tubercle, and the suture was run to approximate the inferior edge of the mesh to the shelving edge of inguinal ligament to a point beyond the internal ring. Interrupted 2-0 Prolene suture was used to approximate the superior edge of the mesh to the internal oblique muscles and the 2 limbs of the mesh was sutured lateral to the internal ring and approximated to the internal oblique muscle. The wound was copiously irrigated with saline, good hemostasis noted and the external oblique aponeurosis was closed with running 2-0 Vicryl suture, Trey's fascia approximated using running 3-0 Vicryl suture, and skin was closed using running subcuticular 4-0 Monocryl suture and Dermabond. 10 mL of 0.5% Marcaine was infiltrated around the incision.
== END 2020-02-20 15:21 | disposition home or self-care (01) ==
PROVIDERS: PCP Family Medicine; Visit Provider Surgery
PROC: (CPT 49650; principal; 2020-02-20 12:30)
DX: K40.90 Unilateral inguinal hernia, without obstruction or gangrene, not specified as recurrent (principal); Z53.31 Laparoscopic surgical procedure converted to open procedure; J44.9 Chronic obstructive pulmonary disease, unspecified; Z87.891 Personal history of nicotine dependence
CPT/HCPCS: 49505; 12345; C1781; J0690; J2704; J2710; J3010; J3490; J7030

== ENCOUNTER 2020-03-25 08:03 | Outpatient (CLI) | payer MEDICARE, MEDICAID, SELFPAY ==
--- NOTE | 2020-03-25 08:10 | CT_ITS ---
WS: [id number] CT CHEST WITH INTRAVENOUS CONTRAST HISTORY: SHORTNESS OF BREATH, WT LOSS, COUGH TECHNIQUE: Contiguous 5 mm axial imaging performed on the thorax. Coronal and sagittal reformats are submitted. All CT scans at [facility] use at least one of these dose optimization techniq ues: automated exposure control; mA and/or kV adjustment per patient size (includes targeted exams wh ere dose is matched to clinical indication); or iterative reconstruction. CONTRAST: Omnipaque 300; 95 mL IV. DLP: 681.54 mGycm COMPARISON: 12/27/2019 and 03/10/2016 Lungs and central airway: Severe chronic emphysema with multiple bulla. 1. Stable 5 mm nodule RIGHT upper lobe, image 16 of series 3. 2. No change ovoid 6 mm noncalcified nodule RIGHT upper lobe, image 21 of series 3. Stable since 12/26 but new since 03/10/2016. 3. No change in the part solid nodule measuring 11 mm posterior RIGHT upper lobe since 12/27/2019, celia ge 24 series 3. There is a tiny satellite nodule measuring 2 mm. Satellite nodule is newly evident si nce 03/10/2016. 4. 2 mm nodule abuts the superior RIGHT pleural fissure, image 29 series 3. 5. Partially calcified nodule LEFT lower lobe, image 42 of series 3 with long-term stability. Pleura: Normal. No pleural effusion. Heart and pericardium: Normal size heart with no pericardial effusion. Mediastinum and yaa: No mediastinum or hilar adenopathy. Vessels: Normal size aortic and pulmonary artery. No coronary artery calcifications. Chest wall and lower neck: Soft tissue lipoma in the posterior RIGHT lower thorax measures 6.7 x 1.5 cm. Upper abdomen: Prior cholecystectomy. Mild hepatic steatosis. Remaining hepatic lesions which have be en previously described are not well seen on this early portal venous phase. No evidence for metastat ic disease. No adrenal mass. Osseous structures: Advanced degenerative changes at the LEFT glenohumeral joint. CT/CT chest w con* [id number] IMPRESSION: 1. No change in the RIGHT upper lobe pulmonary nodules since 12/27/2019. These nodules are new since 03/10/2016. Consider PET/CT imaging. Recommend follow-up c hest CT in 6 months with contrast. 2. Severe emphysema. 3. No adenopathy. 4. Prior cholecystectomy.
[2020-03-25 08:36] LABS: Blood Urea Nitrogen 8 mg/dL (8-23); Glomerular Filtration Rate 97.3 mL/min (90-130)
[2020-03-25] MEDS: iohexol 300 mg/mL 100 mL Btl IV (08:46)
== END 2020-03-25 08:04 | disposition home or self-care (01) ==
LOC: RADWPI 08:08
PROVIDERS: Family Provider Family Medicine; PCP Family Medicine; Visit Provider Internal Medicine Medical Oncology
DX: R06.02 Shortness of breath (principal); R05 Cough; R63.4 Abnormal weight loss; J43.9 Emphysema, unspecified
CPT/HCPCS: 71260; 82565; 84520; Q9967

== ENCOUNTER 2020-03-27 10:57 | Outpatient (CLI) | payer MEDICARE, MEDICAID, SELFPAY ==
[2020-03-27 11:32] LABS: Basophils % 0.6 %; Eosinophils # 0.1 10^3/uL (0.0-0.8); Eosinophils % 3.2 %; Hemoglobin 14.1 g/dL (11.7-16.6); Lymphocytes # 1.3 10^3/uL (0.8-4.8); Lymphocytes % 37.5 %; Mean Corpuscular HGB Conc 33.6 g/dL (30.0-36.0); Mean Corpuscular Hemoglobin 31.4 pg (28.0-34.0); Mean Corpuscular Volume 93.5 fL (80-94); Mean Platelet Volume 9.4 fL (7.4-10.4); Monocytes # 0.2 10^3/uL (0.2-0.9); Monocytes % 6.7 %; Neutrophils # 1.76 10^3/uL (1.8-7.7); Neutrophils % 51.7 %; Nucleated Red Blood Cells % 0 %; Platelet Count 199 10^3/cmm (130-400); Red Blood Count 4.49 10^6/uL (4.1-5.3); Red Cell Distribution Width 12.8 % (12.1-15.1); White Blood Count 3.4 10^3/uL (4.0-10.0)
[2020-03-27 11:52] LABS: Alanine Aminotransferase 13 U/L (0-41); Albumin Level 4.1 g/dL (3.5-5.2); Alkaline Phosphatase 76 IU/L (40-130); Anion Gap 13.4 (5-19); Aspartate Amino Transferase 18 U/L (0-40); Blood Urea Nitrogen 13 mg/dL (8-23); Calcium 8.5 mg/dL (8.5-10.5); Carbon Dioxide 26 mmol/L (22-29); Chloride 100 mmol/L (98-107); Ferritin 155 ng/mL (30-400); Globulin 2.5 g/dL (1.3-4.6); Glomerular Filtration Rate 75.2 mL/min (90-130); Glucose 120 mg/dL (65-115); Iron 92 ug/dL (59-158); Osmolality Calculated 277 mOsm/kg (285-295); Potassium 4.4 mmol/L (3.5-5.1); Sodium 135 mmol/L (136-145); Total Bilirubin 0.3 mg/dL (0.15-1.2); Total Iron Binding Capacity 167 mcg/dl; Total Protein 6.6 g/dL (6.6-8.7); Unsaturated Iron Binding 75 ug/dL (112-347)
--- NOTE | 2020-03-31 06:43 | ONC FU_ITS ---
Dr. Arroyo Patient Follow-Up Note Patient: Milan Winters Unit #: [id number]: 1955 Dicatated By: Jake Arroyo M.D.Date of Visit:Mar 27, 2020 Onc Med Follow-up/Prog Note Chief Complaint: Hemochromatosis/hepatitis C History of Present Illness: This is a 64 year-old man with hereditary hemochromatosis. He has additional history of treated hepatitis C. The hemochromatosis was initially diagnosed in 2002. He was living in [place] at that time, and I did not get those records. I did not have results of his HFE gene study, if one had even been done. His initial ferritin level apparently was greater than 3000. He was managed with phlebotomies. I had seen him initially in 2003, and had continued his phlebotomy program. However, during the course of his treatment, he was found to have converted to positive hepatitis C serology. He was treated with a course of ribavirin and pegylated interferon between October of 2005 and December of 2006. The treatment was complicated by worsening depression and acute psychosis, but that was able to be managed adequately and he did have a good clinical response to the treatment. His quantitative hepatitis C PCR had remained undetectable during his subsequent followup. He was last seen here in March 2016. He had subsequently left the area, and he has just recently returned. His other medical illnesses, in addition to the chronic anxiety/depression, include severe COPD and degenerative arthritis. He also had recurrent episodes of nausea/vomiting. An upper GI endoscopy in January 2014 showed evidence of bile reflux. He had undergone cholecystectomy back in July 2005. In the past, it was suspected that he had coronary artery disease. A coronary angiogram in January 2004 showed some mild muscle bridging in the mid left anterior descending coronary artery, but the coronary arteries otherwise appeared normal. His only other surgery was a right inguinal hernia repair at age 17. He has a history of smoking 2 packs of cigarettes daily. He quit smoking in 2001. He was seen for a follow-up visit on 12/20/2019. He had some records from a clinic in [place] which included laboratory studies from February 2019. At that time his CBC showed hemoglobin 16.2 g with hematocrit 53%. The white blood cell count was 4700 and the platelet count was 271,000. Comprehensive metabolic profile showed normal renal function with BUN 12 and creatinine 0.85 mg/dL. The liver enzymes were normal. His TSH level was normal at 1.68 mIU/L and his hemoglobin A1c was normal at 4.9%. His serum iron studies show transferrin saturation 46%. The serum ferritin was a little above target at 105 ng/mL. At that time he had multiple complaints, including weight loss and fatigue. He was also having significant problems associated with a right inguinal hernia. His laboratory studies showed significantly elevated transferrin saturation at 79%, and his ferritin also was elevated at 272 ng/mL. Liver enzymes were normal. His CT scans of the chest, abdomen, and pelvis showed small pulmonary nodules in the right upper lobe, for which follow-up was recommended. The liver showed mild diffuse fatty infiltration with a few small low-attenuation lesions which were felt to be most likely small hemangiomas. On 02/20/2020 he underwent laparoscopic converted to open right inguinal hernia repair. He tolerated the procedure well. Follow-up chest CT on 03/25/2020 showed no change in right upper lobe pulmonary nodules compared to the December 2019 study. A 6-month follow-up study was recommended, as they were noted to be new compared to a previous study from February 2016. He is seen for a scheduled visit. He is feeling better generally, though he still does not have much energy. He has able to do some light work at home. He is starting to eat better. He says his weight is up 7 pounds. By our scale it is actually up 12 pounds. He does not have fever or night sweats. He has shortness of breath and he has productive cough, which is chronic. He has had occasional episodes of grabbing/squeezing pain in his upper left chest. He was having constipation, that has improved. Bladder function also is better, but he still has some urinary frequency and nocturia. He has throbbing pain in his hands, which he feels is in the bone rather than in the joints. He also has some numbness/tingling in his hands. He says he is depressed all the time, but he does not want to take prescription medication. Medications: Spiriva HandiHaler 1 (18 mcg) Capsule Inhalation daily, Ventolin HFA 1 (108 (90 Base) mcg/act) Aerosol, solution Inhalation daily PRN, Wixela Inhub 1 Puff(s) (of 500-50 mcg/dose) Aerosol Powder, Breath Activated Inhalation b.i.d. Allergies: No Known Allergies. Review of Systems: Constitutional - He does not have much energy, and his activity is limited. He is able to do some light work at home. He is straining of back his appetite. He says his weight is up 7 pounds. By our scale it is 12 pounds. He does not have fever or night sweats. ECOG score is 1, ENMT - He has sinus congestion. No mouth sores. No sore throat or difficulty swallowing, Hematologic/Lymphatic - No abnormal bruising or bleeding, Respiratory - He has shortness of breath and he has productive cough, which is chronic. No pleuritic pain or hemoptysis, Cardiovascular - He has had a few episodes of a grabbing, squeezing pain in his upper left chest. No palpitations, Gastrointestinal - No nausea or vomiting. No heartburn or acid reflux. He was having constipation, bowel function is okay now. No blood in the stool or black stools, Genitourinary (M) - No dysuria or hematuria. He has urinary frequency and nocturia, but his bladder function has improved. No urgency or incontinence, Musculoskeletal - He has throbbing pain in his hands, which she feels is in the bone rather than the joints, Integumentary - No skin rash, Neurologic - No headache. He occasionally has dizziness. He has numbness/tingling in his hands. No other focal neurologic symptoms, Psychiatric - He says he is depressed all the time. He does not want medication for it. He does not sleep well at night. Vital Signs: Performed on Mar 27, 2020 12:49 Height - 68.00 in Weight - 137.2 lbs (HIGH) BSA - 1.74 sq.m BMI - 20.86 Temperature - 98.8 F Pulse - 80 /min Respiration - 18 /min BP - 103/80 mm(hg) O2 Sat - 96 % Pain - 7 Physical Examination: Constitutional - He appears chronically ill, Eyes - Sclerae nonicteric. Conjunctivae clear, ENMT - No lesions noted in the oral cavity, Hematologic/Lymphatic - No cervical, clavicular, or axillary adenopathy, Respiratory - Lungs sound clear with diminished air movement bilaterally, Cardiovascular - Heart rhythm is irregular. There is no murmur, gallop, or rub noted, Abdomen - Soft. Liver and spleen are not enlarged. There is no abdominal mass or ascites noted. There is induration in the right groin area. There is no inguinal adenopathy noted, Extremities - No edema, Neurologic - No focal neurologic deficits noted. Lab/Imaging: Test performed on Mar 27, 2020 11:12 Ferritin 155 ng/mL Iron 92 mcg/dL Sodium 135 mmol/L Iron Binding Capacity (TIBC) 167 mcg/dl Potassium 4.4 mmol/L % Iron Saturation 55.0 % Chloride 100 mmol/L CO2 26 mmol/L UIBC 75 mcg/dL Anion Gap 13.4 BUN 13 mg/dL Creatinine 1.0 mg/dL Cr Clearance (Est) 65.69 mL/min eGFR 75.2 mL/min Glucose 120 mg/dL Calcium 8.5 mg/dL Protein, Total 6.6 g/dL Albumin 4.1 g/dL Globulin 2.5 g/dL Bilirubin, Total 0.3 mg/dL ALT (SGPT) 13 U/L AST (SGOT) 18 U/L Alkaline Phosphatase 76 IU/L WBC 3.4 10 3/uL RBC 4.49 10 6/uL HGB 14.1 g/dL HCT 42.0 % MCV 93.5 fL MCH 31.4 pg MCHC 33.6 g/dL RDW 12.8 % Platelet Count 199 10 3/cmm MPV 9.4 fL Neutrophils 1.76 10 3/uL Lymphocytes 1.3 10 3/uL Monocytes 0.2 10 3/uL Eosinophils 0.1 10 3/uL Basophils 0.0 10 3/uL Neutrophil % 51.7 % Lymphocyte % 37.5 % Monocyte % 6.7 % Eosinophil % 3.2 % Basophils % 0.6 % NRBC % 0 % Impression: 1. Patient with hereditary hemochromatosis. His disease has been managed very well with phlebotomy. His serum iron studies and ferritin from February 2019 were slightly above target range. 2. He has severe COPD. 3. He has CT evidence of small right upper lobe pulmonary nodules which are new since 2016. 4. He underwent treatment for hepatitis C with ribavirin/pegylated interferon from October 2005 through December 2006. 5. He has history of major depression which worsened during the hepatitis C treatment. 6. He has degenerative arthritis/degenerative disease of the spine with chronic back pain. 7. He underwent right inguinal hernia repair on 02/20/2020. He has had no complications with his hernia repair surgery in February, at this point he is showing improvement in his performance status. The right upper lobe pulmonary nodules have remained stable compared to the December [address] CT, but ongoing surveillance is recommended. His transferrin saturation and ferritin are still above target range for his hemochromatosis. Plan: He will be phlebotomized today. He continues treatment with Spiriva and Advair 500/50 for the COPD, and he also uses a Ventolin inhaler as needed. He otherwise does not want to be on any prescription medication. He will be scheduled for a follow-up visit in 3 months. He will need another chest CT in 6 months. Signed By: Jake Arroyo M.D. <<Signature on File>>
== END 2020-03-27 10:58 | disposition home or self-care (01) ==
PROVIDERS: PCP Physician Assistant; Visit Provider Internal Medicine Medical Oncology
DX: E83.110 Hereditary hemochromatosis (principal); J44.9 Chronic obstructive pulmonary disease, unspecified; R91.8 Other nonspecific abnormal finding of lung field; F32.9 Major depressive disorder, single episode, unspecified; M47.9 Spondylosis, unspecified; Z86.19 Personal history of other infectious and parasitic diseases
CPT/HCPCS: 80053; 82728; 83540; 83550; 85025; 99195; 99214

== ENCOUNTER 2020-04-02 09:39 | Outpatient (CLI) | payer MEDICARE, MEDICAID, SELFPAY | END 2020-04-02 09:40 | disposition home or self-care (01) | LOC: ONCMED 09:43 | PROVIDERS: PCP Physician Assistant; Visit Provider Internal Medicine Medical Oncology | DX: B19.20 Unspecified viral hepatitis C without hepatic coma (principal); E83.110 Hereditary hemochromatosis; F32.9 Major depressive disorder, single episode, unspecified; J44.9 Chronic obstructive pulmonary disease, unspecified | CPT/HCPCS: 87177; 87209; 87506 ==

== ENCOUNTER 2020-04-16 08:36 | Outpatient (RCR) | payer MEDICARE, MEDICAID, SELFPAY | END 2020-04-16 23:59 | disposition home or self-care (01) | LOC: SPT 08:36 | PROVIDERS: PCP Physician Assistant; Referring Provider Physician Assistant; Visit Provider Physician Assistant | DX: M54.9 Dorsalgia, unspecified (principal) | CPT/HCPCS: G0283 ==

== ENCOUNTER 2020-04-17 06:00 | Outpatient (RCR) | payer MEDICARE, MEDICAID, SELFPAY | END 2020-05-17 23:59 | disposition home or self-care (01) | LOC: SPT 06:00 | PROVIDERS: PCP Physician Assistant; Referring Provider Physician Assistant; Visit Provider Physician Assistant | DX: M54.9 Dorsalgia, unspecified (principal) | CPT/HCPCS: 97110 ==

== ENCOUNTER → 2020-05-03 12:28 | Outpatient (BNVA) | payer MEDICARE, MEDICAID, SELFPAY | PROVIDERS: PCP Physician Assistant; Visit Provider Physician Assistant | DX: U07.1 COVID-19 (principal) | CPT/HCPCS: 87635 ==

== ENCOUNTER 2020-05-08 08:10 | Outpatient (CLI) | payer MEDICARE, MEDICAID, SELFPAY ==
--- NOTE | 2020-05-08 10:08 | PFTS_ITS ---
Date of Study:05/08/20 Date of Dictation: 05/08/2020 MECHANICS: Forced vital capacity (FVC) is normal Forced expiratory volume in one second (FEV1) is severely reduced FEV1/FVC is severely reduced No significant bronchodilator response FLOW VOLUME LOOP: Significant scooping of expiratory limb consistent with obstructive ventilatory defect . LUNG VOLUMES: Total lung capacity (TLC) is mildly increased. Residual volume (RV) is severely increased suggestive of significant air trapping and hyperinflation. DIFFUSING CAPACITY FOR CARBON MONOXIDE: Moderately reduced. . INTERPRETATION: The pulmonary function tests are consistent with significant obstructive ventilatory defect. Moderate reduction in gas transfer. Correlate clinically. MTDD
== END 2020-05-08 08:11 | disposition home or self-care (01) ==
LOC: RT 08:14
PROVIDERS: PCP Physician Assistant; Visit Provider Physician Assistant
DX: J44.9 Chronic obstructive pulmonary disease, unspecified (principal)
CPT/HCPCS: 94060; 94726; 94729; J7611

== ENCOUNTER 2020-05-18 06:00 | Outpatient (RCR) | payer MEDICARE, MEDICAID, SELFPAY | END 2020-05-28 23:00 | disposition home or self-care (01) | LOC: SPT 06:00 | PROVIDERS: PCP Physician Assistant; Referring Provider Physician Assistant; Visit Provider Physician Assistant | DX: M54.9 Dorsalgia, unspecified (principal) | CPT/HCPCS: 97110 ==

== ENCOUNTER 2020-06-04 10:50 | Outpatient (CLI) | payer MEDICARE, MEDICAID, SELFPAY ==
[2020-06-04 11:35] LABS: Basophils % 0.7 %; Eosinophils # 0.1 10^3/uL (0.0-0.8); Eosinophils % 3.1 %; Hematocrit 45.8 % (42.0-52.0); Hemoglobin 15.8 g/dL (11.7-16.6); Lymphocytes # 1.8 10^3/uL (0.8-4.8); Lymphocytes % 39.8 %; Mean Corpuscular HGB Conc 34.5 g/dL (30.0-36.0); Mean Corpuscular Hemoglobin 29.9 pg (28.0-34.0); Mean Corpuscular Volume 86.7 fL (80-94); Monocytes # 0.3 10^3/uL (0.2-0.9); Monocytes % 6.9 %; Neutrophils # 2.23 10^3/uL (1.8-7.7); Neutrophils % 49.3 %; Nucleated Red Blood Cells % 0 %; Platelet Count 225 10^3/cmm (130-400); Red Blood Count 5.28 10^6/uL (4.1-5.3); Red Cell Distribution Width 12.2 % (12.1-15.1); White Blood Count 4.5 10^3/uL (4.0-10.0)
== END 2020-06-04 10:51 | disposition home or self-care (01) ==
LOC: ONCMED 10:53
PROVIDERS: Nurse Practitioner; PCP Physician Assistant; Visit Provider Internal Medicine Medical Oncology
DX: E83.110 Hereditary hemochromatosis (principal)
CPT/HCPCS: 36415; 85025; 99195

== ENCOUNTER 2020-06-26 06:10 | Outpatient (CLI) | payer MEDICARE, MEDICAID, SELFPAY ==
[2020-06-26 11:50] LABS: Basophils % 0.5 %; Eosinophils # 0.1 10^3/uL (0.0-0.8); Eosinophils % 1.8 %; Hematocrit 40.5 % (42.0-52.0); Lymphocytes # 1.6 10^3/uL (0.8-4.8); Lymphocytes % 35.9 %; Mean Corpuscular HGB Conc 34.6 g/dL (30.0-36.0); Mean Corpuscular Hemoglobin 30.4 pg (28.0-34.0); Monocytes # 0.3 10^3/uL (0.2-0.9); Monocytes % 6.2 %; Neutrophils % 55.4 %; Nucleated Red Blood Cells % 0 %; Platelet Count 229 10^3/cmm (130-400); Red Cell Distribution Width 13.3 % (12.1-15.1); White Blood Count 4.3 10^3/uL (4.0-10.0)
[2020-06-26 12:09] LABS: Alanine Aminotransferase 14 U/L (0-41); Alkaline Phosphatase 83 IU/L (40-130); Anion Gap 10.6 (5-19); Aspartate Amino Transferase 20 U/L (0-40); Blood Urea Nitrogen 12 mg/dL (8-23); Carbon Dioxide 29 mmol/L (22-29); Chloride 104 mmol/L (98-107); Globulin 2.3 g/dL (1.3-4.6); Glucose 120 mg/dL (65-115); Osmolality Calculated 289 mOsm/kg (285-295); Potassium 4.6 mmol/L (3.5-5.1); Sodium 139 mmol/L (136-145); Total Bilirubin 0.4 mg/dL (0.15-1.2); Total Protein 6.3 g/dL (6.6-8.7)
[2020-06-26 12:27] LABS: Ferritin 99 ng/mL (30-400); Iron 141 ug/dL (59-158); Percent Saturation 76.6 % (20-50); Total Iron Binding Capacity 184 mcg/dl; Unsaturated Iron Binding 43 ug/dL (112-347)
[2020-06-26 13:55] LABS: Uric Acid 4.8 mg/dL (3.4-7.0)
[2020-06-26 15:07] LABS: Erythrocyte Sedimentation Rate 11 mm/hr (0-10)
--- NOTE | 2020-06-27 08:51 | ONC FU_ITS ---
Dr. Arroyo Patient Follow-Up Note Patient: Milan Winters Unit #: [id number]: 1955 Dicatated By: Jake Arroyo M.D.Date of Visit:Jun 26, 2020 Onc Med Follow-up/Prog Note Chief Complaint: Hemochromatosis/hepatitis C History of Present Illness: This is a 65 year-old man with hereditary hemochromatosis. He has additional history of treated hepatitis C. The hemochromatosis was initially diagnosed in 2002. He was living in [place] at that time, and I did not get those records. I did not have results of his HFE gene study, if one had even been done. His initial ferritin level apparently was greater than 3000. He was managed with phlebotomies. I had seen him initially in 2003, and had continued his phlebotomy program. However, during the course of his treatment, he was found to have converted to positive hepatitis C serology. He was treated with a course of ribavirin and pegylated interferon between October of 2005 and December of 2006. The treatment was complicated by worsening depression and acute psychosis, but that was able to be managed adequately and he did have a good clinical response to the treatment. His quantitative hepatitis C PCR had remained undetectable during his subsequent followup. He was last seen here in March 2016. He had subsequently left the area, and he has just recently returned. His other medical illnesses, in addition to the chronic anxiety/depression, include severe COPD and degenerative arthritis. He also had recurrent episodes of nausea/vomiting. An upper GI endoscopy in January 2014 showed evidence of bile reflux. He had undergone cholecystectomy back in July 2005. In the past, it was suspected that he had coronary artery disease. A coronary angiogram in January 2004 showed some mild muscle bridging in the mid left anterior descending coronary artery, but the coronary arteries otherwise appeared normal. His only other surgery was a right inguinal hernia repair at age 17. He has a history of smoking 2 packs of cigarettes daily. He quit smoking in 2001. He was seen for a follow-up visit on 12/20/2019. He had some records from a clinic in [place] which included laboratory studies from February 2019. At that time his CBC showed hemoglobin 16.2 g with hematocrit 53%. The white blood cell count was 4700 and the platelet count was 271,000. Comprehensive metabolic profile showed normal renal function with BUN 12 and creatinine 0.85 mg/dL. The liver enzymes were normal. His TSH level was normal at 1.68 mIU/L and his hemoglobin A1c was normal at 4.9%. His serum iron studies show transferrin saturation 46%. The serum ferritin was a little above target at 105 ng/mL. At that time he had multiple complaints, including weight loss and fatigue. He was also having significant problems associated with a right inguinal hernia. His laboratory studies showed significantly elevated transferrin saturation at 79%, and his ferritin also was elevated at 272 ng/mL. Liver enzymes were normal. His CT scans of the chest, abdomen, and pelvis showed small pulmonary nodules in the right upper lobe, for which follow-up was recommended. The liver showed mild diffuse fatty infiltration with a few small low-attenuation lesions which were felt to be most likely small hemangiomas. On 02/20/2020 he underwent laparoscopic converted to open right inguinal hernia repair. He tolerated the procedure well. Follow-up chest CT on 03/25/2020 showed no change in right upper lobe pulmonary nodules compared to the December 2019 study. A 6-month follow-up study was recommended, as they were noted to be new compared to a previous study from February 2016. At his follow-up visit on 03/27/2020 his transferrin saturation was just mildly elevated at 55% with ferritin 155 ng/mL, and with those results he was phlebotomized again. He is seen for a scheduled visit. He continues to have very limited activity tolerance. In addition to shortness of breath, he has back pain which is severe enough that he cannot stand or sit very long at one time. He has, though, up and around at home. His ECOG score is 2. He has good appetite. He has no fever or night sweats. Lately his breathing has been labored quite a bit and he does have cough, especially in the mornings. He has occasional stabbing pain in the upper left chest, which he thinks is muscular. He has no GI or complaints. He also has joint pain, and recently has had a flareup of pain in his right hand. He does not complain of headache. He has a little bit of dizziness. He sometimes has numbness in his hands. He has no other focal neurologic symptoms. Medications: Spiriva HandiHaler 1 (18 mcg) Capsule Inhalation daily, Ventolin HFA 1 (108 (90 Base) mcg/act) Aerosol, solution Inhalation daily PRN, Wixela Inhub 1 Puff(s) (of 500-50 mcg/dose) Aerosol Powder, Breath Activated Inhalation b.i.d. Allergies: No Known Allergies. Review of Systems: Constitutional - He has limited activity tolerance. He is able to do very little work activity, but he is up and around at home. His appetite is good. He has no fever or night sweats. ECOG score is 2, ENMT - He has sinus congestion/drainage. No mouth sores. No sore throat or difficulty swallowing, Hematologic/Lymphatic - He has some bruising, not as bad now, Respiratory - His breathing has been labored quite a bit. He has cough, especially in the mornings. No pleuritic pain or hemoptysis, Cardiovascular - He has had occasional stabbing pain in his upper left chest. He feels like it is muscular. No palpitations, Gastrointestinal - No nausea or vomiting. No heartburn or acid reflux. No diarrhea or constipation. No blood in the stool or black stools, Genitourinary (M) - No dysuria or hematuria. No urinary frequency. No urgency or incontinence, Musculoskeletal - He cannot stand or sit very long because of back pain. He also is having joint pain and he has had a recent flareup of pain in his right hand, Integumentary - No skin rash, Neurologic - No headache. He has a little bit of dizziness. He has some numbness in his hands. No other focal neurologic symptoms, Psychiatric - He has anxiety/depression, and he has a lot of stress. He does not sleep well. Vital Signs: Performed on Jun 26, 2020 12:38 Height - 68.00 in Weight - 150.6 lbs (HIGH) BSA - 1.81 sq.m BMI - 22.90 Temperature - 99.2 F (HIGH) Pulse - 85 /min Respiration - 18 /min BP - 119/66 mm(hg) O2 Sat - 96 % Pain - 10 Physical Examination: Constitutional - He appears chronically ill, Eyes - Sclerae nonicteric. Conjunctivae clear, ENMT - No lesions noted in the oral cavity, Hematologic/Lymphatic - No cervical, clavicular, or axillary adenopathy, Respiratory - Lungs are clear with very diminished air movement bilaterally, Cardiovascular - Heart rhythm is regular. There is no murmur, gallop, or rub noted, Abdomen - Soft. Liver and spleen are not enlarged. There is no abdominal mass or ascites noted and there is no inguinal adenopathy, Extremities - No edema. There is swelling and mild erythema involving the MCP joints of the right index and middle fingers, Integumentary - No rashes. No suspicious skin lesions noted, Neurologic - No focal neurologic deficits noted. Lab/Imaging: Test performed on Jun 26, 2020 11:30 Ferritin 99 ng/mL Iron 141 mcg/dL Sodium 139 mmol/L Uric Acid 4.8 mg/dL Iron Binding Capacity (TIBC) 184 mcg/dl Potassium 4.6 mmol/L % Iron Saturation 76.6 % Chloride 104 mmol/L CO2 29 mmol/L UIBC 43 mcg/dL Anion Gap 10.6 BUN 12 mg/dL Creatinine 0.8 mg/dL Cr Clearance (Est) 88.95 mL/min eGFR 97.0 mL/min Glucose 120 mg/dL Osmolality - Calculated 289 mOsm/kg Calcium 9.0 mg/dL Protein, Total 6.3 g/dL Albumin 4.0 g/dL Globulin 2.3 g/dL Bilirubin, Total 0.4 mg/dL ALT (SGPT) 14 U/L AST (SGOT) 20 U/L Alkaline Phosphatase 83 IU/L ESR (Sed Rate) 11 mm/hr WBC 4.3 10 3/uL RBC 4.60 10 6/uL HGB 14.0 g/dL HCT 40.5 % MCV 88.0 fL MCH 30.4 pg MCHC 34.6 g/dL RDW 13.3 % Platelet Count 229 10 3/cmm MPV 9.0 fL Neutrophils 2.40 10 3/uL Lymphocytes 1.6 10 3/uL Monocytes 0.3 10 3/uL Eosinophils 0.1 10 3/uL Basophils 0.0 10 3/uL Neutrophil % 55.4 % Lymphocyte % 35.9 % Monocyte % 6.2 % Eosinophil % 1.8 % Basophils % 0.5 % NRBC % 0 % Impression: 1. Patient with hereditary hemochromatosis. His disease has been managed very well with phlebotomy. His serum iron studies and ferritin from February 2019 were slightly above target range. 2. He has severe COPD. 3. He has CT evidence of small right upper lobe pulmonary nodules which are new since 2015. 4. He underwent treatment for hepatitis C with ribavirin/pegylated interferon from October 2005 through December 2006. 5. He has history of major depression which worsened during the hepatitis C treatment. 6. He has degenerative arthritis/degenerative disease of the spine with chronic back pain. 7. He underwent right inguinal hernia repair on 02/20/2020. He had no complications with his hernia repair surgery in February. The right upper lobe pulmonary nodules appeared stable compared to the December [address], but ongoing surveillance was recommended. At this point he continues to have very marginal performance status, mainly due to the underlying COPD, though he also does have a significant component of back pain. He recently has had an acute flareup of arthritis in the right second and third MCP joints. His transferrin saturation remains significantly elevated, but his ferritin levels have continued to show a consistent downward trend, and the level now is just slightly above target range. Plan: He will be phlebotomized again today. He continues treatment with Spiriva and Advair 500/50 for the COPD, and he has a Ventolin inhaler to use as needed. I recommended that he try Voltaren gel for the joint pain in his right hand. He declines a flu shot. I will see him again in 3 months. He will have a restaging chest CT prior to that visit. In the meantime, I also will arrange for referral to a curer foam rubber. He is scheduled to start pulmonary rehab later this month. Pulmonary rehab Signed By: Jake Arroyo M.D. <<Signature on File>>
== END 2020-06-26 06:11 | disposition home or self-care (01) ==
LOC: ONCMED 06:12
PROVIDERS: PCP Physician Assistant; Visit Provider Internal Medicine Medical Oncology
DX: E83.110 Hereditary hemochromatosis (principal); J44.9 Chronic obstructive pulmonary disease, unspecified; F32.9 Major depressive disorder, single episode, unspecified; M47.9 Spondylosis, unspecified; M19.90 Unspecified osteoarthritis, unspecified site; Z86.19 Personal history of other infectious and parasitic diseases
CPT/HCPCS: 36415; 80053; 82728; 83540; 83550; 84550; 85025; 85651; 99195; 99214

== ENCOUNTER 2020-07-31 11:28 | Outpatient (CLI) | payer MEDICARE, MEDICAID, SELFPAY | END 2020-07-31 11:29 | disposition home or self-care (01) | LOC: RAD 04-30 12:10 | PROVIDERS: PCP Family Medicine; Visit Provider Nurse Practitioner Family | DX: M19.041 Primary osteoarthritis, right hand (principal) | CPT/HCPCS: 73130 ==

== ENCOUNTER → 2020-08-07 12:31 | Outpatient (BNVA) | payer MEDICARE, MEDICAID, SELFPAY | PROVIDERS: Visit Provider Internal Medicine Pulmonary Disease | DX: Z11.59 Encounter for screening for other viral diseases (principal) | CPT/HCPCS: 87635 ==

== ENCOUNTER 2020-09-09 08:37 | Outpatient (CLI) | payer MEDICARE, MEDICAID, SELFPAY ==
[2020-09-09 10:31] LABS: Magnesium 1.9 mg/dL (1.7-2.3)
[2020-09-14 14:57] LABS: Copper Level 102 mcg/dL (70-175); Zinc Level, Serum or Plasma 68 mcg/dL (60-130)
== END 2020-09-09 08:38 | disposition home or self-care (01) ==
PROVIDERS: Visit Provider Internal Medicine
DX: T65.91XA Toxic effect of unspecified substance, accidental (unintentional), initial encounter (principal)
CPT/HCPCS: 82175; 82525; 83655; 83735; 83825; 84630

== ENCOUNTER 2020-09-18 08:20 | Outpatient (CLI) | payer MEDICARE, MEDICAID, SELFPAY ==
--- NOTE | 2020-09-18 08:45 | CT_ITS ---
WS: [id number] CT CHEST TECHNIQUE: Noncontrast CT of the chest with coronal and sagittal reformatted images. CLINICAL INFORMATION: monitor lung nodule COMPARISON: CT March 2020, December 2019, February 2016, November and April 2015. DLP: 792.[address] scans at [facility] use at least one of these dose optimization techniques: automat ed exposure control; mA and/or kV adjustment per patient size (includes targeted exams where dose is matched to clinical indication); or iterative reconstruction. FINDINGS: Moderate chronic emphysematous changes. No acute pulmonary infiltrates. Bulla formation in the lung a pices. Again seen are multiple noncalcified pulmonary nodules the largest in the right upper lobe chandrika suring 9 mm. This lesion is slightly spiculated and unchanged since 03/25/2020 and 12/27/2019. Additiona l subcentimeter noncalcified nodules in the right upper lobe measuring 5 to 6 mm. Tiny noncalcified n odule right lower lobe measuring 3 mm. Subsegmental atelectasis in the lung bases. Calcified granulom a left lower lobe. No mediastinal or hilar lymphadenopathy. No axillary lymphadenopathy. Normal caliber thoracic aorta. Adrenal glands are normal. Cholecystectomy. Small splenule. CT/CT chest wo con [id number] IMPRESSION: 1. Spiculated right upper lobe nodule measuring 9 mm is unchanged since December 162019. This can be further evaluated with PET/CT. Otherwise recommend 6 month follow-up chest CT. 2. Nodules in right upper lobe measuring 5 to 6 mm are stable. 3. Additional 3 mm nodule right lower lobe is unchanged. 4. Advanced chronic emphysematous changes. 5. No mediastinal or hilar lymphadenopathy. 6. Prior cholecystectomy.
== END 2020-09-18 08:21 | disposition home or self-care (01) ==
LOC: RADWPI 08:24
PROVIDERS: PCP Internal Medicine; Visit Provider Internal Medicine Pulmonary Disease
DX: R91.1 Solitary pulmonary nodule (principal); Z90.49 Acquired absence of other specified parts of digestive tract
CPT/HCPCS: 71250

== ENCOUNTER 2020-09-24 10:45 | Outpatient (CLI) | payer MEDICARE, MEDICAID, SELFPAY ==
[2020-09-24 12:18] LABS: Basophils % 0.5 %; Eosinophils # 0.1 10^3/uL (0.0-0.8); Eosinophils % 2.1 %; Hematocrit 45.3 % (42.0-52.0); Hemoglobin 15.7 g/dL (11.7-16.6); Lymphocytes # 1.7 10^3/uL (0.8-4.8); Lymphocytes % 38.2 %; Mean Corpuscular HGB Conc 34.7 g/dL (30.0-36.0); Mean Corpuscular Volume 86.6 fL (80-94); Mean Platelet Volume 9.3 fL (7.4-10.4); Monocytes # 0.3 10^3/uL (0.2-0.9); Monocytes % 7.1 %; Neutrophils # 2.27 10^3/uL (1.8-7.7); Neutrophils % 51.9 %; Nucleated Red Blood Cells % 0 %; Platelet Count 250 10^3/cmm (130-400); Red Blood Count 5.23 10^6/uL (4.1-5.3); White Blood Count 4.4 10^3/uL (4.0-10.0)
[2020-09-24 12:56] LABS: Alanine Aminotransferase 21 U/L (0-41); Albumin Level 4.3 g/dL (3.5-5.2); Alkaline Phosphatase 91 IU/L (40-130); Anion Gap 13.1 (5-19); Aspartate Amino Transferase 24 U/L (0-40); Blood Urea Nitrogen 11 mg/dL (8-23); Calcium 9.5 mg/dL (8.5-10.5); Carbon Dioxide 28 mmol/L (22-29); Chloride 101 mmol/L (98-107); Ferritin 105 ng/mL (30-400); Globulin 2.8 g/dL (1.3-4.6); Glomerular Filtration Rate 113.2 mL/min (90-130); Glucose 79 mg/dL (65-115); Iron 85 ug/dL (59-158); Osmolality Calculated 284 mOsm/kg (285-295); Potassium 4.1 mmol/L (3.5-5.1); Sodium 138 mmol/L (136-145); Total Bilirubin 0.4 mg/dL (0.15-1.2); Total Iron Binding Capacity 193 mcg/dl; Total Protein 7.1 g/dL (6.6-8.7); Unsaturated Iron Binding 108 ug/dL (112-347)
--- NOTE | 2020-09-28 14:15 | ONC FU_ITS ---
Dr. Arroyo Patient Follow-Up Note Patient: Milan Winters Unit #: [id number]: 1955 Dicatated By: Jake Arroyo M.D.Date of Visit:Sep 24, 2020 Onc Med Follow-up/Prog Note Chief Complaint: Hemochromatosis/hepatitis C History of Present Illness: This is a 65 year-old man with hereditary hemochromatosis. He has additional history of treated hepatitis C. The hemochromatosis was initially diagnosed in 2002. He was living in [place] at that time, and I did not get those records. I did not have results of his HFE gene study, if one had even been done. His initial ferritin level apparently was greater than 3000. He was managed with phlebotomies. I had seen him initially in 2003, and had continued his phlebotomy program. However, during the course of his treatment, he was found to have converted to positive hepatitis C serology. He was treated with a course of ribavirin and pegylated interferon between October of 2005 and December of 2006. The treatment was complicated by worsening depression and acute psychosis, but that was able to be managed adequately and he did have a good clinical response to the treatment. His quantitative hepatitis C PCR had remained undetectable during his subsequent followup. He was last seen here in March 2016. He had subsequently left the area, and he has just recently returned. His other medical illnesses, in addition to the chronic anxiety/depression, include severe COPD and degenerative arthritis. He also had recurrent episodes of nausea/vomiting. An upper GI endoscopy in January 2014 showed evidence of bile reflux. He had undergone cholecystectomy back in July 2005. In the past, it was suspected that he had coronary artery disease. A coronary angiogram in January 2004 showed some mild muscle bridging in the mid left anterior descending coronary artery, but the coronary arteries otherwise appeared normal. His only other surgery was a right inguinal hernia repair at age 17. He has a history of smoking 2 packs of cigarettes daily. He quit smoking in 2001. He was seen for a follow-up visit on 12/20/2019. He had some records from a clinic in [place] which included laboratory studies from February 2019. At that time his CBC showed hemoglobin 16.2 g with hematocrit 53%. The white blood cell count was 4700 and the platelet count was 271,000. Comprehensive metabolic profile showed normal renal function with BUN 12 and creatinine 0.85 mg/dL. The liver enzymes were normal. His TSH level was normal at 1.68 mIU/L and his hemoglobin A1c was normal at 4.9%. His serum iron studies show transferrin saturation 46%. The serum ferritin was a little above target at 105 ng/mL. At that time he had multiple complaints, including weight loss and fatigue. He was also having significant problems associated with a right inguinal hernia. His laboratory studies showed significantly elevated transferrin saturation at 79%, and his ferritin also was elevated at 272 ng/mL. Liver enzymes were normal. His CT scans of the chest, abdomen, and pelvis showed small pulmonary nodules in the right upper lobe, for which follow-up was recommended. The liver showed mild diffuse fatty infiltration with a few small low-attenuation lesions which were felt to be most likely small hemangiomas. On 02/20/2020 he underwent laparoscopic converted to open right inguinal hernia repair. He tolerated the procedure well. Follow-up chest CT on 03/25/2020 showed no change in right upper lobe pulmonary nodules compared to the December 2019 study. A 6-month follow-up study was recommended, as they were noted to be new compared to a previous study from February 2016. At his follow-up visit on 03/27/2020 his transferrin saturation was just mildly elevated at 55% with ferritin 155 ng/mL, and with those results he was phlebotomized again. He is seen for a scheduled visit. He says he has been feeling really bad, in part due to being depressed all the time. He refuses, though, to consider taking any medication for it, as he is convinced that antidepressants will result in a permanent medical disorder . He is instead managing it with cannabis. He continues to have very limited activity tolerance. ECOG score is 2. His appetite is been okay. He does not have fever. He says he has always had night sweating. He tends to have sinus/nasal congestion. He has shortness of breath and cough. He does not complain of chest pain. He has no GI/ complaints other than some constipation, which is chronic. He has a bad back and he also has pain in his hands, left shoulder, and left knee. He does not complain of headache. He occasionally has dizziness. He has numbness/tingling in both hands. He says he bruises and bleeds easily. Medications: Spiriva HandiHaler 1 (18 mcg) Capsule Inhalation daily, Ventolin HFA 1 (108 (90 Base) mcg/act) Aerosol, solution Inhalation daily PRN, Wixela Inhub 1 Puff(s) (of 500-50 mcg/dose) Aerosol Powder, Breath Activated Inhalation b.i.d. Allergies: No Known Allergies. Vital Signs: Performed on Sep 24, 2020 13:31 Height - 68.00 in Weight - 149 lbs (LOW) BSA - 1.80 sq.m BMI - 22.66 Temperature - 97.9 F (LOW) Pulse - 85 /min Respiration - 18 /min BP - 133/85 mm(hg) O2 Sat - 98 % Pain - 6 Fatigue - 10 Physical Examination: Constitutional - He appears chronically ill, Eyes - Sclerae nonicteric. Conjunctivae clear, ENMT - No lesions noted in the oral cavity, Hematologic/Lymphatic - No cervical, clavicular, or axillary adenopathy, Respiratory - Lungs are clear with diminished air movement bilaterally, Cardiovascular - Heart rhythm is regular. There is no murmur, gallop, or rub noted, Abdomen - Soft. Liver and spleen are not enlarged. There is no abdominal mass or ascites noted and there is no inguinal adenopathy, Extremities - No edema, Neurologic - No focal neurologic deficits noted. Lab/Imaging: Test performed on Sep 24, 2020 10:59 Ferritin 105 ng/mL Iron 85 mcg/dL Sodium 138 mmol/L Iron Binding Capacity (TIBC) 193 mcg/dl Potassium 4.1 mmol/L % Iron Saturation 44.0 % Chloride 101 mmol/L CO2 28 mmol/L UIBC 108 mcg/dL Anion Gap 13.1 BUN 11 mg/dL Creatinine 0.7 mg/dL Cr Clearance (Est) 100.58 mL/min eGFR 113.2 mL/min Glucose 79 mg/dL Osmolality - Calculated 284 mOsm/kg Calcium 9.5 mg/dL Protein, Total 7.1 g/dL Albumin 4.3 g/dL Globulin 2.8 g/dL Bilirubin, Total 0.4 mg/dL ALT (SGPT) 21 U/L AST (SGOT) 24 U/L Alkaline Phosphatase 91 IU/L WBC 4.4 10 3/uL RBC 5.23 10 6/uL HGB 15.7 g/dL HCT 45.3 % MCV 86.6 fL MCH 30.0 pg MCHC 34.7 g/dL RDW 12.0 % Platelet Count 250 10 3/cmm MPV 9.3 fL Neutrophils 2.27 10 3/uL Lymphocytes 1.7 10 3/uL Monocytes 0.3 10 3/uL Eosinophils 0.1 10 3/uL Basophils 0.0 10 3/uL Neutrophil % 51.9 % Lymphocyte % 38.2 % Monocyte % 7.1 % Eosinophil % 2.1 % Basophils % 0.5 % NRBC % 0 % Problem List: 1. Hereditary hemochromatosis. His disease has been managed adequately with phlebotomy. 2. He has severe COPD. 3. He had CT evidence of small right upper lobe pulmonary nodules which were new since 2016. 4. He underwent treatment for hepatitis C with ribavirin/pegylated interferon from October 2005 through December 2006. 5. He has history of major depression which worsened during the hepatitis C treatment. 6. He has degenerative arthritis/degenerative disease of the spine with chronic back pain. 7. He underwent right inguinal hernia repair on 02/20/2020. Problems Addressed with this Encounter and Plan: 1. Patient with hereditary hemochromatosis. His disease has been managed adequately with phlebotomy. His serum iron studies and ferritin from February 2019 were slightly above target range. As of his follow-up visit in June 2020 his transferrin saturation had increased to 76% with ferritin 99 ng/mL, at that point I did opt to have him phlebotomized. At this point his iron saturation is down to 44% but with ferritin still slightly above target at 105 ng/mL. As such, I will have him phlebotomized again today. His laboratory studies will be repeated in 3 months and he will be scheduled for a follow-up visit in 6 months. He will be phlebotomized again as needed. 2. His chest CT on 12/27/2019 showed small right upper lobe pulmonary nodules which were new compared to previous study from 2016. His repeat chest CT on 09/18/2020 showed a spiculated right upper lobe nodule measuring 9 mm which appeared unchanged compared to the December 2019 study. Additional nodules in the right upper lobe measuring 5 to 6 mm also appeared stable and a 3 mm right lower lobe nodule appeared unchanged. I will repeat the CT scan again in 6 months. Signed By: Jake Arroyo M.D. <<Signature on File>>
== END 2020-09-24 10:46 | disposition home or self-care (01) ==
LOC: ONCMED 10:48
PROVIDERS: PCP Internal Medicine; Visit Provider Internal Medicine Medical Oncology
DX: E83.110 Hereditary hemochromatosis (principal); R91.8 Other nonspecific abnormal finding of lung field; Z86.19 Personal history of other infectious and parasitic diseases
CPT/HCPCS: 80053; 82728; 83540; 83550; 85025; 99195; 99214

== ENCOUNTER 2020-11-07 22:05 | Emergency (ER) | payer MEDICARE, MEDICAID, SELFPAY ==
[2020-11-07 22:15] VITALS: BP 157/97; PULSE 81; RESP 17; TEMP 36.6; O2SAT 98; BMI 24.9
[2020-11-07 22:22] VITALS: BP 138/95; PULSE 93; RESP 17; TEMP 37.4; O2SAT 96
--- NOTE | 2020-11-07 22:26 | ED_ITS ---
HPI - Back Pain/Injury General: Chief Complaint: Back Pain/Injury Stated Complaint: back pain Time Seen by Provider: 11/07/20 22:10 Source: patient Mode of arrival: EMS Limitations: no limitations History of Present Illness: HPI Narrative: Patient is a nice 65-year-old gentleman who presents to ED today with what he describes as right-sided sciatic pain. Patient tells me he suffered a severe crush injury as a child but likely was able to survive and still have use of his lower extremities. He tells me he does suffer from chronic back pain but manages this without medications. He states today he was bent over trying to maneuver an air mattress in his camper when he heard a pop in his back. He states he was still able to function normally throughout the day stating he drove to town and took his dog for a walk however pain progressively worsened. He states later that day was carrying his 40 pound dog and was lowering her to the ground when he immediately felt wo rsening pain stating that was the icing on the cake . Patient has been in significant discomfort since. He states the pain radiates from his right lower back around into his groin and then down at the anterior aspect of his right leg. He is not having any saddle anesthesia, no urinary retention, or bowel incontinence. He states his pain currently is similar to pains he has had previously. MD elicited complaint: back pain Pertinent past history: prior back pain Onset (ago): hour(s) Timing: constant Severity: severe Similar Symptoms Previously: Yes Quality: sharp Location: right lower back Radiation: right upper leg Exacerbating factors: movement and walking Relieving factors: none Context: while lifting, turning/twisting and bending Associated symptoms: Reports no associated symptoms; Deny dysuria, fever(s), hematuria, nausea or vomiting Treatments prior to arrival: heat therapy Work related injury: No Review of Systems Const: Denies: fever(s) Card: Denies: chest pain Resp: Denies: dyspnea GI: Denies: nausea or vomiting : Denies: flank pain, dysuria, hematuria or genital pain Musc: Reports: back pain; Denies: neck pain, extremity swelling, joint pain or joint swelling Skin/Breast: Denies: rash Neuro: Denies: numbness in extremities, weakness in extremities, sensory changes or dizziness [facility] ED PFSH: Medical History COPD (chronic obstructive pulmonary disease) Family history of hemochromatosis Hemochromatosis, hereditary Surgical History H/O circumcision H/O colonoscopy 2015 H/O left inguinal hernia repair Hx of cholecystectomy Status post right inguinal hernia repair (02/20/20) Family History Mother Cancer stomach Denies family history of Diabetes CAD (coronary artery disease) Anesthesia complication Bleeding disorder Social History Smoking and tobacco status: former smoker Quit status (tobacco): has quit using tobacco Year quit tobacco: 2001 [id number] Second hand smoke exposure: Yes Smoking risk assessment/counseling performed?: Yes Alcohol intake: current Alcohol intake frequency: holidays/special occasions only Desire information about substance/drug rehabilitation?: No Lives independently: Yes Household members: none Marital status: Single service: No Current occupational status: disabled Pets and animals: Yes History of recent travel: No Current gender identity: Male Physical Exam Const: COMMON NORMALS: average body habitus, patient oriented x3, no limitations, healthy appearing, alert and well nourished GENERAL APPEARANCE: cooperative and in distress (appears uncomfortable) ORIEN TATION/CONSCIOUSNESS: Yes awake, Yes oriented to person, Yes oriented to place and Yes oriented to time : COMMON NORMALS: Yes no CVA tenderness BLADDER/KIDNEY EXAM: Yes no CVA tenderness Back/Pelvis: COMMON NORMALS: no CVA tenderness THORACIC SPINE/UPPER BACK: Yes normal to inspection and Yes thoracic ROM normal LUMBAR SPINE/LOWER BACK: Yes normal to inspection and Yes lumbar ROM normal PELVIS: Yes sciatic notch tenderness (R) SACROILIAC JOINTS: Yes SI joint(s) abnormal (R) BACK IMAGE (MALE): 1. TTP Extremity: COMMON NORMALS: normal to inspection and full ROM GENERAL: Yes normal exam except as noted Neuro: COMMON NORMALS: patient oriented x3, moves all extremities, no focal motor deficits and no sensory deficits noted SENSORIUM/ORIENTATION: Yes alert, Yes oriented to person, Yes oriented to place and Yes oriented to time GAIT: Yes Unable to assess gait Skin: COMMON NORMALS: no rashes or lesions noted GENERAL SKIN EXAM: no rashes or lesions noted Course ED course: Patient states he would only like Norflex at the moment to see if this helps. He was offered steroids and NSAIDS. Vital Signs: Vital signs: Vital Signs Temperature 99.4 F 11/07/20 22:22 Pulse Rate 93 11/07/20 22:22 Respiratory Rate 17 11/07/20 22:22 Blood Pressure 138/95 11/07/20 22:22 Pulse Oximetry 96 11/07/20 22:22 MDM - Back Pain/Injury MDM Narrative: Medical decision making narrative: Patient feels better after IM Norflex and Toradol. He is requesting to go home. He does not want any prescriptions to go home with. Discharge Plan Discharge Patient Disposition: Home Clinical Impression: Acute right-sided back pain with sciatica Condition: Stable Prescriptions: No Action fluticasone propion-salmeterol [Advair Diskus] 500-50 mcg/dose blister with device 1 inh inhalation BID Qty: 60 RF: 3 Spiriva with HandiHaler 18 mcg capsule, w/inhalation device 1 cap inhalation DAILY Qty: 30 RF: 3 albuterol sulfate [Ventolin HFA] 90 mcg/actuation Hfa Aerosol Inhaler 1 puff INHALATION QID PRN (Reason: Shortness Of Breath) RF: 0 Discharge Orders: Discharge ED (Routine); Ordered 11/07/20 Ordered By: Indira Griffith Referrals: Patricia Lane DO [Primary Care Provider] - Patient Instructions: Sciatica (ED) Coding Level of Care Code ED [employer] for Chg Fwd Exam Detailed
[2020-11-07] MEDS: orphenadrine 30 mg/mL Inj 2 mL 60 MG IM (22:29)
[2020-11-07] MEDS: ketorolac 60 mg/2 mL INJ IM (23:19)
[2020-11-08 00:11] VITALS: BP 129/78; PULSE 84; RESP 18; O2SAT 94
== END 2020-11-08 00:13 | disposition home or self-care (01) ==
PROVIDERS: Emergency Provider Physician Assistant; PCP Internal Medicine
DX: M54.41 Lumbago with sciatica, right side (principal); J44.9 Chronic obstructive pulmonary disease, unspecified; Z87.891 Personal history of nicotine dependence
CPT/HCPCS: 96372; 99283; J1885; J2360

== ENCOUNTER 2020-12-23 12:52 | Outpatient (CLI) | payer MEDICARE, MEDICAID, SELFPAY ==
[2020-12-23 14:25] LABS: Basophils % 0.7 %; Eosinophils # 0.1 10^3/uL (0.0-0.8); Eosinophils % 2.7 %; Hematocrit 42.8 % (42.0-52.0); Hemoglobin 14.7 g/dL (11.7-16.6); Lymphocytes # 1.7 10^3/uL (0.8-4.8); Mean Corpuscular HGB Conc 34.3 g/dL (30.0-36.0); Mean Corpuscular Volume 87.3 fL (80-94); Mean Platelet Volume 9.4 fL (7.4-10.4); Monocytes # 0.4 10^3/uL (0.2-0.9); Monocytes % 8.2 %; Neutrophils # 2.26 10^3/uL (1.8-7.7); Neutrophils % 50.2 %; Nucleated Red Blood Cells % 0 %; Platelet Count 243 10^3/cmm (130-400); Red Cell Distribution Width 12.3 % (12.1-15.1); White Blood Count 4.5 10^3/uL (4.0-10.0)
[2020-12-23 14:40] LABS: Ferritin 117 ng/mL (30-400); Iron 144 ug/dL (59-158); Percent Saturation 85.7 % (20-50); Total Iron Binding Capacity 168 mcg/dl; Unsaturated Iron Binding 24 ug/dL (112-347)
--- NOTE | 2020-12-24 07:22 | ONC FU_ITS ---
Dr. Arroyo Patient Follow-Up Note Patient: Milan Winters Unit #: [id number]: 1955 Dicatated By: Jake Arroyo M.D.Date of Visit:Dec 23, 2020 Onc Med Follow-up/Prog Note Chief Complaint: Hemochromatosis/hepatitis C History of Present Illness: This is a 65 year-old man with hereditary hemochromatosis. He has additional history of treated hepatitis C. The hemochromatosis was initially diagnosed in 2002. He was living in [place] at that time, and I did not get those records. I did not have results of his HFE gene study, if one had even been done. His initial ferritin level apparently was greater than 3000. He was managed with phlebotomies. I had seen him initially in 2003, and had continued his phlebotomy program. However, during the course of his treatment, he was found to have converted to positive hepatitis C serology. He was treated with a course of ribavirin and pegylated interferon between October of 2005 and December of 2006. The treatment was complicated by worsening depression and acute psychosis, but that was able to be managed adequately and he did have a good clinical response to the treatment. His quantitative hepatitis C PCR had remained undetectable during his subsequent followup. He was last seen here in March 2016. He had subsequently left the area, and he has just recently returned. His other medical illnesses, in addition to the chronic anxiety/depression, include severe COPD and degenerative arthritis. He also had recurrent episodes of nausea/vomiting. An upper GI endoscopy in January 2014 showed evidence of bile reflux. He had undergone cholecystectomy back in July 2005. In the past, it was suspected that he had coronary artery disease. A coronary angiogram in January 2004 showed some mild muscle bridging in the mid left anterior descending coronary artery, but the coronary arteries otherwise appeared normal. His only other surgery was a right inguinal hernia repair at age 17. He has a history of smoking 2 packs of cigarettes daily. He quit smoking in 2001. He was seen for a follow-up visit on 12/20/2019. He had some records from a clinic in [place] which included laboratory studies from February 2019. At that time his CBC showed hemoglobin 16.2 g with hematocrit 53%. The white blood cell count was 4700 and the platelet count was 271,000. Comprehensive metabolic profile showed normal renal function with BUN 12 and creatinine 0.85 mg/dL. The liver enzymes were normal. His TSH level was normal at 1.68 mIU/L and his hemoglobin A1c was normal at 4.9%. His serum iron studies show transferrin saturation 46%. The serum ferritin was a little above target at 105 ng/mL. At that time he had multiple complaints, including weight loss and fatigue. He was also having significant problems associated with a right inguinal hernia. His laboratory studies showed significantly elevated transferrin saturation at 79%, and his ferritin also was elevated at 272 ng/mL. Liver enzymes were normal. His CT scans of the chest, abdomen, and pelvis showed small pulmonary nodules in the right upper lobe, for which follow-up was recommended. The liver showed mild diffuse fatty infiltration with a few small low-attenuation lesions which were felt to be most likely small hemangiomas. On 02/20/2020 he underwent laparoscopic converted to open right inguinal hernia repair. He tolerated the procedure well. Follow-up chest CT on 03/25/2020 showed no change in right upper lobe pulmonary nodules compared to the December 2019 study. A 6-month follow-up study was recommended, as they were noted to be new compared to a previous study from February 2016. At his follow-up visit on 03/27/2020 his transferrin saturation was just mildly elevated at 55% with ferritin 155 ng/mL, and with those results he was phlebotomized. His repeat chest CT on 09/18/2020 showed stable right upper lobe spiculated nodule measuring 9 mm. Additional nodules in the right upper lobe measuring 5 to 6 mm and in the right lower lobe measuring 3 mm also appeared stable. There is no mediastinal or hilar lymphadenopathy noted. There were advanced chronic emphysematous changes. At that time his ferritin level was still above target range and he was again phlebotomized. He is seen for a scheduled visit. He says his energy is okay, he does have limited activity due to his shortness of breath. He is able to do his regular chores. His ECOG score is one. His appetite has been okay, though he has not been eating as much, and he has lost some weight. He does not have fever or night sweats. He says his breathing is the same when he has his regular cough . He does not complain of chest pain. He has no GI complaints. He does have some urgency with urination. He has joint pain, particularly in his hands, but that has improved somewhat. He also has chronic lower back pain. He does not complain of headache. He has occasional dizzy spells, but he has no focal neurologic symptoms. Medications: Spiriva HandiHaler 1 (18 mcg) Capsule Inhalation daily, Ventolin HFA 1 (108 (90 Base) mcg/act) Aerosol, solution Inhalation daily PRN, Wixela Inhub 1 Puff(s) (of 500-50 mcg/dose) Aerosol Powder, Breath Activated Inhalation b.i.d. Allergies: No Known Allergies. Vital Signs: Performed on Dec 23, 2020 15:44 Height - 68.00 in Weight - 136.4 lbs (LOW) BSA - 1.74 sq.m BMI - 20.74 Temperature - 98.0 F (LOW) Pulse - 69 /min Respiration - 18 /min BP - 123/81 mm(hg) O2 Sat - 96 % Pain - 9 Fatigue - 7 Physical Examination: Constitutional - He appears chronically ill, Eyes - Sclerae nonicteric. Conjunctivae clear, ENMT - No lesions noted in the oral cavity, Hematologic/Lymphatic - No cervical, clavicular, or axillary adenopathy, Respiratory - Lungs are clear with diminished air movement bilaterally, Cardiovascular - Heart rhythm is regular. There is no murmur, gallop, or rub noted, Abdomen - Soft. Liver and spleen are not enlarged. There is no abdominal mass or ascites noted and there is no inguinal adenopathy, Extremities - No edema, Neurologic - No focal neurologic deficits noted. Lab/Imaging: Test performed on Dec 23, 2020 13:26 Ferritin 117 ng/mL Iron 144 mcg/dL Iron Binding Capacity (TIBC) 168 mcg/dl % Iron Saturation 85.7 % UIBC 24 mcg/dL WBC 4.5 10 3/uL RBC 4.90 10 6/uL HGB 14.7 g/dL HCT 42.8 % MCV 87.3 fL MCH 30.0 pg MCHC 34.3 g/dL RDW 12.3 % Platelet Count 243 10 3/cmm MPV 9.4 fL Neutrophils 2.26 10 3/uL Lymphocytes 1.7 10 3/uL Monocytes 0.4 10 3/uL Eosinophils 0.1 10 3/uL Basophils 0.0 10 3/uL Neutrophil % 50.2 % Lymphocyte % 38.0 % Monocyte % 8.2 % Eosinophil % 2.7 % Basophils % 0.7 % NRBC % 0 % Problem List: 1. Hereditary hemochromatosis. His disease has been managed adequately with phlebotomy. 2. He has severe COPD. 3. He had CT evidence of small right upper lobe pulmonary nodules which were new since 2016. 4. He underwent treatment for hepatitis C with ribavirin/pegylated interferon from October 2005 through December 2006. 5. He has history of major depression which worsened during the hepatitis C treatment. 6. He has degenerative arthritis/degenerative disease of the spine with chronic back pain. 7. He underwent right inguinal hernia repair on 02/20/2020. Problems Addressed with this Encounter and Plan: 1. Patient with hereditary hemochromatosis. His disease has been managed adequately with phlebotomy. His serum iron studies and ferritin from February 2019 were slightly above target range. As of his follow-up visit in June 2020 his transferrin saturation had increased to 76% with ferritin 99 ng/mL, at that point I did opt to have him phlebotomized. He required phlebotomy again in September 2020 with his ferritin level still above target range, and at this point his ferritin and transferrin saturation remain elevated. As such, he will be phlebotomized today and he will be scheduled for monthly CBC and phlebotomy. I will see him again with repeat serum iron studies and ferritin in 3 months. 2. His chest CT on 12/27/2019 showed small right upper lobe pulmonary nodules which were new compared to previous study from 2015. His repeat chest CT on 09/18/2020 showed a spiculated right upper lobe nodule measuring 9 mm which appeared unchanged compared to the December 2019 study. Additional nodules in the right upper lobe measuring 5 to 6 mm also appeared stable and a 3 mm right lower lobe nodule appeared unchanged. He will be due to have the CT scan repeated again with his next visit in 3 months. Signed By: Jake Arroyo M.D. <<Signature on File>>
== END 2020-12-23 12:53 | disposition home or self-care (01) ==
LOC: ONCMED 12:55
PROVIDERS: PCP Internal Medicine; Visit Provider Internal Medicine Medical Oncology
DX: E83.110 Hereditary hemochromatosis (principal); J44.9 Chronic obstructive pulmonary disease, unspecified; R91.8 Other nonspecific abnormal finding of lung field; Z86.19 Personal history of other infectious and parasitic diseases; F32.9 Major depressive disorder, single episode, unspecified; M47.9 Spondylosis, unspecified; Z79.899 Other long term (current) drug therapy
CPT/HCPCS: 36415; 82728; 83540; 83550; 85025; 99195; 99214

== ENCOUNTER → 2021-02-17 11:35 | Outpatient (BNVA) | payer MEDICARE, MEDICAID, SELFPAY | PROVIDERS: PCP Family Medicine; Referring Provider Internal Medicine; Visit Provider Specialist | DX: E83.110 Hereditary hemochromatosis (principal); R11.2 Nausea with vomiting, unspecified; F41.9 Anxiety disorder, unspecified; Z86.19 Personal history of other infectious and parasitic diseases; Z87.891 Personal history of nicotine dependence | CPT/HCPCS: 99204 ==

== ENCOUNTER 2021-03-26 11:24 | Outpatient (CLI) | payer MEDICARE, MEDICAID, SELFPAY ==
--- NOTE | 2021-03-26 11:37 | CT_ITS ---
WS: [id number] CT CHEST TECHNIQUE: Noncontrast CT of the chest with coronal and sagittal reformatted images. CLINICAL INFORMATION: PULMONARY NODULES COMPARISON: Multiple prior CTs most recent September 18, 2020 DLP: 522.[address] scans at [facility] [place] use at least one of these dose optimization techniques: automated e xposure control; mA and/or kV adjustment per patient size (includes targeted exams where dose is matc hed to clinical indication); or iterative reconstruction. FINDINGS: Moderate to advanced chronic emphysematous changes. No acute pulmonary infiltrates. No focal pneumoni a or pleural fluid. Bulla formation in the lung apices. Again seen are multiple noncalcified pulmonar y nodules largest in the right upper lobe measuring 9 mm with slight spiculation unchanged. Additional subcentimeter noncalcified nodules in the right upper lobe measuring 5 to 6 mm are stable. 4 mm noncalcified nodule right lower lobe slightly larger compared to previous where it measured 3 m m. A few calcified granulomas. No mediastinal or hilar lymphadenopathy. No axillary lymphadenopathy. Prior cholecystectomy. Adrenal glands are normal. Normal GE junction. Subsegmental atelectasis in the lung bases. CT/CT chest wo con [id number] IMPRESSION: 1. Stable slightly spiculated right upper lobe nodule measuring 9 mm is unchan ged. 2. 5 to 6 mm noncalcified nodules right upper lobe are stable. 3. 4 mm nodule right lower lobe has increased in size slightly compared to pre vious. Recommend 6 month follow-up. 4. Advanced chronic emphysematous changes with bulla formation. 5. No mediastinal or hilar lymphadenopathy.
== END 2021-03-26 11:25 | disposition home or self-care (01) ==
LOC: RAD 11:28
PROVIDERS: PCP Family Medicine; Visit Provider Internal Medicine Medical Oncology
DX: R91.8 Other nonspecific abnormal finding of lung field (principal)
CPT/HCPCS: 71250

== ENCOUNTER 2021-03-31 10:52 | Outpatient (CLI) | payer MEDICARE, MEDICAID, SELFPAY ==
[2021-03-31 11:31] LABS: Basophils % 0.7 %; Eosinophils # 0.1 10^3/uL (0.0-0.8); Eosinophils % 2.7 %; Hematocrit 46.5 % (42.0-52.0); Lymphocytes # 1.7 10^3/uL (0.8-4.8); Lymphocytes % 40.9 %; Mean Corpuscular HGB Conc 34.4 g/dL (30.0-36.0); Mean Corpuscular Hemoglobin 30.1 pg (28.0-34.0); Mean Corpuscular Volume 87.4 fl (80-94); Mean Platelet Volume 9.1 fL (7.4-10.4); Monocytes # 0.3 10^3/uL (0.2-0.9); Monocytes % 7.4 %; Neutrophils # 1.94 10^3/uL (1.8-7.7); Neutrophils % 48.3 %; Nucleated Red Blood Cells % 0 %; Platelet Count 227 10^3/cmm (130-400); Red Blood Count 5.32 10^6/uL (4.1-5.3); Red Cell Distribution Width 12.8 % (12.1-15.1)
[2021-03-31 12:01] LABS: Alanine Aminotransferase 15 U/L (0-41); Albumin Level 4.2 g/dL (3.5-5.2); Alkaline Phosphatase 89 IU/L (40-130); Anion Gap 12.3 (5-19); Aspartate Amino Transferase 21 U/L (0-40); Blood Urea Nitrogen 15 mg/dL (8-23); Carbon Dioxide 27 mmol/L (22-29); Chloride 103 mmol/L (98-107); Ferritin 115 ng/mL (30-400); Globulin 2.8 g/dL (1.3-4.6); Glomerular Filtration Rate 135.2 mL/min (90-130); Glucose 90 mg/dL (65-115); Iron 119 ug/dL (59-158); Osmolality Calculated 286 mOsm/kg (285-295); Percent Saturation 60.7 % (20-50); Potassium 4.3 mmol/L (3.5-5.1); Sodium 138 mmol/L (136-145); Total Bilirubin 0.3 mg/dL (0.15-1.2); Total Iron Binding Capacity 196 mcg/dl; Unsaturated Iron Binding 77 ug/dL (112-347)
--- NOTE | 2021-04-01 07:00 | ONC FU_ITS ---
Dr. Arroyo Patient Follow-Up Note Patient: Milan Winters Unit #: [id number]: 1955 Dicatated By: Jake Arroyo M.D.Date of Visit:Mar 31, 2021 Onc Med Follow-up/Prog Note Chief Complaint: Hemochromatosis/hepatitis C History of Present Illness: This is a 65 year-old man with hereditary hemochromatosis. He has additional history of treated hepatitis C. The hemochromatosis was initially diagnosed in 2002. He was living in [place] at that time, and I did not get those records. I did not have results of his HFE gene study, if one had even been done. His initial ferritin level apparently was greater than 3000. He was managed with phlebotomies. I had seen him initially in 2003, and had continued his phlebotomy program. However, during the course of his treatment, he was found to have converted to positive hepatitis C serology. He was treated with a course of ribavirin and pegylated interferon between October of 2005 and December of 2006. The treatment was complicated by worsening depression and acute psychosis, but that was able to be managed adequately and he did have a good clinical response to the treatment. His quantitative hepatitis C PCR had remained undetectable during his subsequent followup. He was last seen here in March 2016. He had then left the area, but he returned in 2019. He was seen for a follow-up visit on 12/20/2019. He had some records from a clinic in [place] which included laboratory studies from February 2019. At that time his CBC showed hemoglobin 16.2 g with hematocrit 53%. The white blood cell count was 4700 and the platelet count was 271,000. Comprehensive metabolic profile showed normal renal function with BUN 12 and creatinine 0.85 mg/dL. The liver enzymes were normal. His TSH level was normal at 1.68 mIU/L and his hemoglobin A1c was normal at 4.9%. His serum iron studies show transferrin saturation 46%. The serum ferritin was a little above target at 105 ng/mL. At that time he had multiple complaints, including weight loss and fatigue. He was also having significant problems associated with a right inguinal hernia. His laboratory studies in December 2019 showed significantly elevated transferrin saturation at 79%, and his ferritin also was elevated at 272 ng/mL. Liver enzymes were normal. He was phlebotomized. His CT scans of the chest, abdomen, and pelvis showed small pulmonary nodules in the right upper lobe, for which follow-up was recommended. The liver showed mild diffuse fatty infiltration with a few small low-attenuation lesions which were felt to be most likely small hemangiomas. On 02/20/2020 he underwent laparoscopic converted to open right inguinal hernia repair. He tolerated the procedure well. Follow-up chest CT on 03/25/2020 showed no change in right upper lobe pulmonary nodules compared to the December 2019 study. A 6-month follow-up study was recommended, as they were noted to be new compared to a previous study from February 2016. At his follow-up visit on 03/27/2020 his transferrin saturation was just mildly elevated at 55% with ferritin 155 ng/mL, and he continued phlebotomies. His other medical illnesses, in addition to the chronic anxiety/depression, include severe COPD and degenerative arthritis. He also had recurrent episodes of nausea/vomiting. An upper GI endoscopy in January 2014 showed evidence of bile reflux. He had undergone cholecystectomy back in July 2005. In the past, it was suspected that he had coronary artery disease. A coronary angiogram in January 2004 showed some mild muscle bridging in the mid left anterior descending coronary artery, but the coronary arteries otherwise appeared normal. His only other surgery was a right inguinal hernia repair at age 17. He has a history of smoking 2 packs of cigarettes daily. He quit smoking in 2001. INTERIM HISTORY: His repeat chest CT on 09/18/2020 showed stable right upper lobe spiculated nodule measuring 9 mm. Additional nodules in the right upper lobe measuring 5 to 6 mm and in the right lower lobe measuring 3 mm also appeared stable. There is no mediastinal or hilar lymphadenopathy noted. There were advanced chronic emphysematous changes. With those findings he continues surveillance for the pulmonary nodules. He also continued phlebotomy for the hemochromatosis. His repeat chest CT on 03/26/2021 showed unchanged slightly spiculated nodule in the right upper lobe measuring 9 mm. Additional 5 to 6 mm noncalcified nodules in the right upper lobe also appeared stable. A 4 mm nodule in the right lower lobe was noted to have increased slightly. 6-month follow-up was recommended. There was no mediastinal or hilar adenopathy noted. He is seen for a follow-up visit. He has been feeling pretty good generally, though he does report that he has been having chest pains. It has been occurring mostly in association with stress, and he does describe it as a pressure. He has limited activity tolerance, but he is able to do some light work. ECOG score is 1. He has good appetite. He has not had fever. His night sweating is better now. He has some sinus congestion, attributable to dust. He has had less cough lately. His breathing, though, is still pretty bad. He has no GI or complaints. He has some generalized joint aches. He occasionally has headache. He has dizzy spells, particularly when he bends over. He sometimes has numbness/tingling. Medications: Spiriva HandiHaler 1 (18 mcg) Capsule Inhalation daily, Ventolin HFA 1 (108 (90 Base) mcg/act) Aerosol, solution Inhalation daily PRN, Wixela Inhub 1 Puff(s) (of 500-50 mcg/dose) Aerosol Powder, Breath Activated Inhalation b.i.d. Allergies: No Known Allergies. Vital Signs: Performed on Mar 31, 2021 14:21 Height - 68.00 in Weight - 136.6 lbs (HIGH) BSA - 1.74 sq.m BMI - 20.77 Temperature - 98.1 F (LOW) Pulse - 93 /min Respiration - 18 /min BP - 109/75 mm(hg) O2 Sat - 96 % Pain - 0 Fatigue - 7 Physical Examination: Constitutional - He looks a little better generally, though he still appears chronically ill, Eyes - Sclerae nonicteric. Conjunctivae clear, ENMT - No lesions noted in the oral cavity, Hematologic/Lymphatic - No cervical, clavicular, or axillary adenopathy, Respiratory - Lungs are clear with diminished air movement bilaterally, Cardiovascular - Heart rhythm is regular. There is no murmur, gallop, or rub noted, Abdomen - Soft. Liver and spleen are not enlarged. There is no abdominal mass or ascites noted and there is no inguinal adenopathy, Extremities - No edema, Neurologic - No focal neurologic deficits noted. Lab/Imaging: Test performed on Mar 31, 2021 11:12 Ferritin 115 ng/mL Iron 119 mcg/dL Sodium 138 mmol/L Iron Binding Capacity (TIBC) 196 mcg/dl Potassium 4.3 mmol/L % Iron Saturation 60.7 % Chloride 103 mmol/L CO2 27 mmol/L UIBC 77 mcg/dL Anion Gap 12.3 BUN 15 mg/dL Creatinine 0.6 mg/dL Cr Clearance (Est) 107.57 mL/min eGFR 135.2 mL/min Glucose 90 mg/dL Osmolality - Calculated 286 mOsm/kg Calcium 9.0 mg/dL Protein, Total 7.0 g/dL Albumin 4.2 g/dL Globulin 2.8 g/dL Bilirubin, Total 0.3 mg/dL ALT (SGPT) 15 U/L AST (SGOT) 21 U/L Alkaline Phosphatase 89 IU/L WBC 4.0 10 3/uL RBC 5.32 10 6/uL HGB 16.0 g/dL HCT 46.5 % MCV 87.4 fl MCH 30.1 pg MCHC 34.4 g/dL RDW 12.8 % Platelet Count 227 10 3/cmm MPV 9.1 fL Neutrophils 1.94 10 3/uL Lymphocytes 1.7 10 3/uL Monocytes 0.3 10 3/uL Eosinophils 0.1 10 3/uL Basophils 0.0 10 3/uL Neutrophil % 48.3 % Lymphocyte % 40.9 % Monocyte % 7.4 % Eosinophil % 2.7 % Basophils % 0.7 % NRBC % 0 % Problem List: 1. Hereditary hemochromatosis. His disease has been managed adequately with phlebotomy. 2. He has severe COPD. 3. He had CT evidence of small right upper lobe pulmonary nodules which were new since 2016. 4. He underwent treatment for hepatitis C with ribavirin/pegylated interferon from October 2005 through December 2006. 5. He has history of major depression which worsened during the hepatitis C treatment. 6. He has degenerative arthritis/degenerative disease of the spine with chronic back pain. 7. He underwent right inguinal hernia repair on 02/20/2020. Problems Addressed with this Encounter and Plan: 1. Patient with hereditary hemochromatosis. His disease has been managed adequately with phlebotomy. His serum iron studies and ferritin from February 2019 were slightly above target range. As of his follow-up visit in December 2019 his transferrin saturation had increased to 79% with ferritin 272 ng/mL, and at that point he restarted phlebotomies. His current studies show moderately elevated transferrin saturation at 60.7% with ferritin 115 ng/mL, and he will be phlebotomized today. I will see him again in 3 months. 2. His chest CT on 12/27/2019 showed small right upper lobe pulmonary nodules which were new compared to previous study from 2015. His repeat chest CT on 09/18/2020 showed a spiculated right upper lobe nodule measuring 9 mm which appeared unchanged compared to the December 2019 study. Additional nodules in the right upper lobe measuring 5 to 6 mm also appeared stable and a 3 mm right lower lobe nodule appeared unchanged. On his current CT the pulmonary nodules remain stable with the exception of a 4 mm right lower lobe nodule which increased slightly. A 6-month follow-up CT was recommended. Signed By: Jake Arroyo M.D. <<Signature on File>>
== END 2021-03-31 10:53 | disposition home or self-care (01) ==
LOC: ONCMED 10:56
PROVIDERS: PCP Family Medicine; Visit Provider Internal Medicine Medical Oncology
DX: E83.110 Hereditary hemochromatosis (principal); R91.8 Other nonspecific abnormal finding of lung field; J44.9 Chronic obstructive pulmonary disease, unspecified; F32.9 Major depressive disorder, single episode, unspecified; M47.9 Spondylosis, unspecified; G89.29 Other chronic pain; M54.9 Dorsalgia, unspecified; Z79.899 Other long term (current) drug therapy
CPT/HCPCS: 36415; 80053; 82728; 83540; 83550; 85025; 99195; 99214

== ENCOUNTER 2021-06-15 11:07 | Outpatient (CLI) | payer MEDICARE, MEDICAID, SELFPAY ==
[2021-06-15 11:43] LABS: Basophils % 0.5 %; Eosinophils # 0.1 10^3/uL (0.0-0.8); Eosinophils % 1.7 %; Hematocrit 45.1 % (42.0-52.0); Lymphocytes # 1.5 10^3/uL (0.8-4.8); Lymphocytes % 34.4 %; Mean Corpuscular HGB Conc 35.5 g/dL (30.0-36.0); Mean Corpuscular Hemoglobin 30.9 pg (28.0-34.0); Mean Corpuscular Volume 87.2 fl (80-94); Mean Platelet Volume 9.1 fL (7.4-10.4); Monocytes # 0.3 10^3/uL (0.2-0.9); Monocytes % 6.9 %; Neutrophils # 2.37 10^3/uL (1.8-7.7); Neutrophils % 56.3 %; Nucleated Red Blood Cells % 0 %; Platelet Count 252 10^3/cmm (130-400); Red Blood Count 5.17 10^6/uL (4.1-5.3); Red Cell Distribution Width 12.4 % (12.1-15.1); White Blood Count 4.2 10^3/uL (4.0-10.0)
[2021-06-15 12:23] LABS: Alanine Aminotransferase 16 U/L (0-41); Albumin Level 4.5 g/dL (3.5-5.2); Alkaline Phosphatase 83 IU/L (40-130); Blood Urea Nitrogen 15 mg/dL (8-23); Calcium 9.3 mg/dL (8.5-10.5); Carbon Dioxide 28 mmol/L (22-29); Chloride 103 mmol/L (98-107); Ferritin 77 ng/mL (30-400); Globulin 2.6 g/dL (1.3-4.6); Glomerular Filtration Rate 112.8 mL/min (90-130); Glucose 80 mg/dL (65-115); Iron 162 ug/dL (59-158); Osmolality Calculated 288 mOsm/kg (285-295); Sodium 139 mmol/L (136-145); Total Bilirubin 0.4 mg/dL (0.15-1.2); Total Protein 7.1 g/dL (6.6-8.7)
[2021-06-15 12:26] LABS: Anion Gap 12.2 (5-19); Potassium 4.2 mmol/L (3.5-5.1)
[2021-06-15 12:49] LABS: Percent Saturation 70.7 % (20-50); Total Iron Binding Capacity 229 mcg/dl; Unsaturated Iron Binding 67 ug/dL (112-347)
[2021-06-15 13:40] LABS: Aspartate Amino Transferase 26 U/L (0-40)
== END 2021-06-15 11:08 | disposition home or self-care (01) ==
LOC: ONCMED 11:10
PROVIDERS: PCP Family Medicine; Visit Provider Internal Medicine Medical Oncology
DX: E83.110 Hereditary hemochromatosis (principal); D50.9 Iron deficiency anemia, unspecified; J44.9 Chronic obstructive pulmonary disease, unspecified; F32.9 Major depressive disorder, single episode, unspecified; Z79.899 Other long term (current) drug therapy
CPT/HCPCS: 36415; 80053; 82728; 83540; 83550; 85025; 99195

== ENCOUNTER 2021-07-06 11:00 | Outpatient (CLI) | payer MEDICARE, MEDICAID, SELFPAY ==
[2021-07-06 11:28] LABS: Basophils % 0.6 %; Eosinophils # 0.1 10^3/uL (0.0-0.8); Eosinophils % 2.9 %; Hematocrit 44.2 % (42.0-52.0); Hemoglobin 15.6 g/dL (11.7-16.6); Lymphocytes # 1.7 10^3/uL (0.8-4.8); Lymphocytes % 34.2 %; Mean Corpuscular HGB Conc 35.3 g/dL (30.0-36.0); Mean Corpuscular Volume 87.9 fl (80-94); Monocytes # 0.3 10^3/uL (0.2-0.9); Monocytes % 5.9 %; Neutrophils # 2.74 10^3/uL (1.8-7.7); Neutrophils % 56.2 %; Nucleated Red Blood Cells % 0 %; Platelet Count 240 10^3/cmm (130-400); Red Blood Count 5.03 10^6/uL (4.1-5.3); Red Cell Distribution Width 12.8 % (12.1-15.1); White Blood Count 4.9 10^3/uL (4.0-10.0)
[2021-07-06 12:00] LABS: Alanine Aminotransferase 13 U/L (0-41); Albumin Level 4.2 g/dL (3.5-5.2); Alkaline Phosphatase 87 IU/L (40-130); Anion Gap 16.5 (5-19); Aspartate Amino Transferase 19 U/L (0-40); Blood Urea Nitrogen 18 mg/dL (8-23); Calcium 8.5 mg/dL (8.5-10.5); Carbon Dioxide 23 mmol/L (22-29); Chloride 101 mmol/L (98-107); Ferritin 51 ng/mL (30-400); Globulin 2.5 g/dL (1.3-4.6); Glomerular Filtration Rate 112.8 mL/min (90-130); Glucose 166 mg/dL (65-115); Iron 83 ug/dL (59-158); Osmolality Calculated 288 mOsm/kg (285-295); Percent Saturation 41.7 % (20-50); Potassium 4.5 mmol/L (3.5-5.1); Sodium 136 mmol/L (136-145); Total Bilirubin 0.3 mg/dL (0.15-1.2); Total Iron Binding Capacity 199 mcg/dl; Total Protein 6.7 g/dL (6.6-8.7); Unsaturated Iron Binding 116 ug/dL (112-347)
--- NOTE | 2021-07-06 20:28 | ONC FU_ITS ---
Dr. Arroyo Patient Follow-Up Note Patient: Milan Winters Unit #: [id number]: 1955 Dicatated By: Jake Arroyo M.D.Date of Visit:Jul 06, 2021 Onc Med Follow-up/Prog Note Chief Complaint: Hemochromatosis/hepatitis C History of Present Illness: This is a 66 year-old man with hereditary hemochromatosis. He has additional history of treated hepatitis C. The hemochromatosis was initially diagnosed in 2002. He was living in [place] at that time, and I did not get those records. I did not have results of his HFE gene study, if one had even been done. His initial ferritin level apparently was greater than 3000. He was managed with phlebotomies. I had seen him initially in 2003, and had continued his phlebotomy program. However, during the course of his treatment, he was found to have converted to positive hepatitis C serology. He was treated with a course of ribavirin and pegylated interferon between October of 2005 and December of 2006. The treatment was complicated by worsening depression and acute psychosis, but that was able to be managed adequately and he did have a good clinical response to the treatment. His quantitative hepatitis C PCR had remained undetectable during his subsequent followup. He was last seen here in March 2016. He had then left the area, but he returned in 2019. He was seen for a follow-up visit on 12/20/2019. He had some records from a clinic in [place] which included laboratory studies from February 2019. At that time his CBC showed hemoglobin 16.2 g with hematocrit 53%. The white blood cell count was 4700 and the platelet count was 271,000. Comprehensive metabolic profile showed normal renal function with BUN 12 and creatinine 0.85 mg/dL. The liver enzymes were normal. His TSH level was normal at 1.68 mIU/L and his hemoglobin A1c was normal at 4.9%. His serum iron studies show transferrin saturation 46%. The serum ferritin was a little above target at 105 ng/mL. At that time he had multiple complaints, including weight loss and fatigue. He was also having significant problems associated with a right inguinal hernia. His laboratory studies in December 2019 showed significantly elevated transferrin saturation at 79%, and his ferritin also was elevated at 272 ng/mL. Liver enzymes were normal. He was phlebotomized. His CT scans of the chest, abdomen, and pelvis showed small pulmonary nodules in the right upper lobe, for which follow-up was recommended. The liver showed mild diffuse fatty infiltration with a few small low-attenuation lesions which were felt to be most likely small hemangiomas. On 02/20/2020 he underwent laparoscopic converted to open right inguinal hernia repair. He tolerated the procedure well. Follow-up chest CT on 03/25/2020 showed no change in right upper lobe pulmonary nodules compared to the December 2019 study. A 6-month follow-up study was recommended, as they were noted to be new compared to a previous study from February 2016. At his follow-up visit on 03/27/2020 his transferrin saturation was just mildly elevated at 55% with ferritin 155 ng/mL, and he continued phlebotomies. His other medical illnesses, in addition to the chronic anxiety/depression, include severe COPD and degenerative arthritis. He also had recurrent episodes of nausea/vomiting. An upper GI endoscopy in January 2014 showed evidence of bile reflux. He had undergone cholecystectomy back in July 2005. In the past, it was suspected that he had coronary artery disease. A coronary angiogram in January 2004 showed some mild muscle bridging in the mid left anterior descending coronary artery, but the coronary arteries otherwise appeared normal. His only other surgery was a right inguinal hernia repair at age 17. He has a history of smoking 2 packs of cigarettes daily. He quit smoking in 2001. INTERIM HISTORY: His repeat chest CT on 09/18/2020 showed stable right upper lobe spiculated nodule measuring 9 mm. Additional nodules in the right upper lobe measuring 5 to 6 mm and in the right lower lobe measuring 3 mm also appeared stable. There is no mediastinal or hilar lymphadenopathy noted. There were advanced chronic emphysematous changes. With those findings he continues surveillance for the pulmonary nodules. He also continued phlebotomy for the hemochromatosis. His repeat chest CT on 03/26/2021 showed unchanged slightly spiculated nodule in the right upper lobe measuring 9 mm. Additional 5 to 6 mm noncalcified nodules in the right upper lobe also appeared stable. A 4 mm nodule in the right lower lobe was noted to have increased slightly. A 6-month follow-up study was recommended. There was no mediastinal or hilar adenopathy noted. As of his follow-up visit on 03/31/2021 his ferritin was a little above target range of 115 ng/mL with transferrin saturation elevated at 60.7%, and he was recommended to continue monthly phlebotomies. He is seen for a follow-up visit. He continues to complain that his energy is very low. He is not doing much of any work activity now. ECOG score is 2. His appetite is not bad. He does not have fever or night sweats. He complains that he is freezing all the time. He complains that his sinuses are dry at night. He has cough which is usually productive of clear sputum, but occasionally it is cloudy. He is short of breath with activity. He has been having muscle spasms in his chest/rib cage. He has no GI complaints other than a few weeks ago he had red blood in the stool, but just transiently. Bladder function remains adequate. He has joint pain, especially in his hands, and he also has back pain. He does not complain of headache. He sometimes has numbness in his fingers. Medications: Spiriva HandiHaler 1 (18 mcg) Capsule Inhalation daily, Ventolin HFA 1 (108 (90 Base) mcg/act) Aerosol, solution Inhalation daily PRN, Wixela Inhub 1 Puff(s) (of 500-50 mcg/dose) Aerosol Powder, Breath Activated Inhalation b.i.d. Allergies: No Known Allergies. Vital Signs: Performed on Jul 06, 2021 13:10 Height - 68.00 in Temperature - 98.6 F Pulse - 74 /min Respiration - 18 /min BP - 117/84 mm(hg) O2 Sat - 95 % (LOW) Performed on Jul 06, 2021 12:30 Height - 68.00 in Weight - 139.4 lbs (HIGH) BSA - 1.75 sq.m BMI - 21.20 Temperature - 97.5 F (LOW) Pulse - 85 /min Respiration - 17 /min BP - 132/88 mm(hg) O2 Sat - 95 % (LOW) Pain - 8 Fatigue - 7 Physical Examination: Constitutional - He appears chronically ill, Eyes - Sclerae nonicteric. Conjunctivae clear, ENMT - No lesions noted in the oral cavity, Hematologic/Lymphatic - No cervical, clavicular, or axillary adenopathy, Respiratory - Lungs show diminished air movement bilaterally. There is just very slight expiratory wheezing, Cardiovascular - Heart rhythm is regular. There is no murmur, gallop, or rub noted, Abdomen - Soft. Liver and spleen are not enlarged. There is no abdominal mass or ascites noted and there is no inguinal adenopathy, Extremities - No edema, Neurologic - No focal neurologic deficits noted. Lab/Imaging: Test performed on Jul 06, 2021 11:12 Ferritin 51 ng/mL Iron 83 mcg/dL Sodium 136 mmol/L Iron Binding Capacity (TIBC) 199 mcg/dl Potassium 4.5 mmol/L % Iron Saturation 41.7 % Chloride 101 mmol/L CO2 23 mmol/L UIBC 116 mcg/dL Anion Gap 16.5 BUN 18 mg/dL Creatinine 0.7 mg/dL Cr Clearance (Est) 92.84 mL/min eGFR 112.8 mL/min Glucose 166 mg/dL Osmolality - Calculated 288 mOsm/kg Calcium 8.5 mg/dL Protein, Total 6.7 g/dL Albumin 4.2 g/dL Globulin 2.5 g/dL Bilirubin, Total 0.3 mg/dL ALT (SGPT) 13 U/L AST (SGOT) 19 U/L Alkaline Phosphatase 87 IU/L WBC 4.9 10 3/uL RBC 5.03 10 6/uL HGB 15.6 g/dL HCT 44.2 % MCV 87.9 fl MCH 31.0 pg MCHC 35.3 g/dL RDW 12.8 % Platelet Count 240 10 3/cmm MPV 9.0 fL Neutrophils 2.74 10 3/uL Lymphocytes 1.7 10 3/uL Monocytes 0.3 10 3/uL Eosinophils 0.1 10 3/uL Basophils 0.0 10 3/uL Neutrophil % 56.2 % Lymphocyte % 34.2 % Monocyte % 5.9 % Eosinophil % 2.9 % Basophils % 0.6 % NRBC % 0 % Problem List: 1. Hereditary hemochromatosis. His disease has been managed adequately with phlebotomy. 2. He has severe COPD. 3. He had CT evidence of small right upper lobe pulmonary nodules which were new since 2016. 4. He underwent treatment for hepatitis C with ribavirin/pegylated interferon from October 2005 through December 2006. 5. He has history of major depression which worsened during the hepatitis C treatment. 6. He has degenerative arthritis/degenerative disease of the spine with chronic back pain. 7. He underwent right inguinal hernia repair on 02/20/2020. Problems Addressed with this Encounter and Plan: 1. Patient with hereditary hemochromatosis. His disease has been managed adequately with phlebotomy. His serum iron studies and ferritin from February 2019 were slightly above target range. As of his follow-up visit in December 2019 his transferrin saturation had increased to 79% with ferritin 272 ng/mL, and at that point he restarted phlebotomies. As of his follow-up in March 2021 his transferrin saturation was moderately elevated at 60.7% with ferritin 115 ng/mL, and he was recommended to continue monthly phlebotomies. His current studies show ferritin in target range at 51 ng/mL with transferrin saturation down to 41.7%. As such, he will be phlebotomized again today and he will then continue phlebotomies every 3 months. He will be scheduled for a follow-up visit in 6 months. 2. His chest CT on 12/27/2019 showed small right upper lobe pulmonary nodules which were new compared to previous study from 2015. His repeat chest CT on 09/18/2020 showed a spiculated right upper lobe nodule measuring 9 mm which appeared unchanged compared to the December 2019 study. Additional nodules in the right upper lobe measuring 5 to 6 mm also appeared stable and a 3 mm right lower lobe nodule appeared unchanged. On his current CT the pulmonary nodules remain stable with the exception of a 4 mm right lower lobe nodule which increased slightly. A 6-month follow-up CT was recommended. It will be due in September 2021. Signed By: Jake Arroyo M.D. <<Signature on File>>
== END 2021-07-06 11:01 | disposition home or self-care (01) ==
PROVIDERS: PCP Family Medicine; Visit Provider Internal Medicine Medical Oncology
DX: E83.110 Hereditary hemochromatosis (principal); B19.20 Unspecified viral hepatitis C without hepatic coma; J44.9 Chronic obstructive pulmonary disease, unspecified; F41.9 Anxiety disorder, unspecified; F32.A Depression, unspecified; M47.899 Other spondylosis, site unspecified; Z87.891 Personal history of nicotine dependence; Z79.899 Other long term (current) drug therapy
CPT/HCPCS: 36415; 80053; 82728; 83540; 83550; 85025; 99195; 99214

== ENCOUNTER 2021-07-30 09:00 | Outpatient (CLI) | payer MEDICARE, MEDICAID, SELFPAY ==
--- NOTE | 2021-08-03 09:03 | ONC FU_ITS ---
Dr. Arroyo Patient Follow-Up Note Patient: Milan Winters Unit #: [id number]: 1955 Dicatated By: Jake Arroyo M.D.Date of Visit:Jul 30, 2021 Onc Med Follow-up/Prog Note Chief Complaint: Hemochromatosis/hepatitis C History of Present Illness: This is a 66 year-old man with hereditary hemochromatosis. He has additional history of treated hepatitis C. The hemochromatosis was initially diagnosed in 2002. He was living in [place] at that time, and I did not get those records. I did not have results of his HFE gene study, if one had even been done. His initial ferritin level apparently was greater than 3000. He was managed with phlebotomies. I had seen him initially in 2003, and had continued his phlebotomy program. However, during the course of his treatment, he was found to have converted to positive hepatitis C serology. He was treated with a course of ribavirin and pegylated interferon between October of 2005 and December of 2006. The treatment was complicated by worsening depression and acute psychosis, but that was able to be managed adequately and he did have a good clinical response to the treatment. His quantitative hepatitis C PCR had remained undetectable during his subsequent followup. He was last seen here in March 2016. He had then left the area, but he returned in 2019. He was seen for a follow-up visit on 12/20/2019. He had some records from a clinic in [place] which included laboratory studies from February 2019. At that time his CBC showed hemoglobin 16.2 g with hematocrit 53%. The white blood cell count was 4700 and the platelet count was 271,000. Comprehensive metabolic profile showed normal renal function with BUN 12 and creatinine 0.85 mg/dL. The liver enzymes were normal. His TSH level was normal at 1.68 mIU/L and his hemoglobin A1c was normal at 4.9%. His serum iron studies show transferrin saturation 46%. The serum ferritin was a little above target at 105 ng/mL. At that time he had multiple complaints, including weight loss and fatigue. He was also having significant problems associated with a right inguinal hernia. His laboratory studies in December 2019 showed significantly elevated transferrin saturation at 79%, and his ferritin also was elevated at 272 ng/mL. Liver enzymes were normal. He was phlebotomized. His CT scans of the chest, abdomen, and pelvis showed small pulmonary nodules in the right upper lobe, for which follow-up was recommended. The liver showed mild diffuse fatty infiltration with a few small low-attenuation lesions which were felt to be most likely small hemangiomas. On 02/20/2020 he underwent laparoscopic converted to open right inguinal hernia repair. He tolerated the procedure well. Follow-up chest CT on 03/25/2020 showed no change in right upper lobe pulmonary nodules compared to the December 2019 study. A 6-month follow-up study was recommended, as they were noted to be new compared to a previous study from February 2016. At his follow-up visit on 03/27/2020 his transferrin saturation was just mildly elevated at 55% with ferritin 155 ng/mL, and he continued phlebotomies. His other medical illnesses, in addition to the chronic anxiety/depression, include severe COPD and degenerative arthritis. He also had recurrent episodes of nausea/vomiting. An upper GI endoscopy in January 2014 showed evidence of bile reflux. He had undergone cholecystectomy back in July 2005. In the past, it was suspected that he had coronary artery disease. A coronary angiogram in January 2004 showed some mild muscle bridging in the mid left anterior descending coronary artery, but the coronary arteries otherwise appeared normal. His only other surgery was a right inguinal hernia repair at age 17. He has a history of smoking 2 packs of cigarettes daily. He quit smoking in 2001. INTERIM HISTORY: His repeat chest CT on 09/18/2020 showed stable right upper lobe spiculated nodule measuring 9 mm. Additional nodules in the right upper lobe measuring 5 to 6 mm and in the right lower lobe measuring 3 mm also appeared stable. There is no mediastinal or hilar lymphadenopathy noted. There were advanced chronic emphysematous changes. With those findings he continues surveillance for the pulmonary nodules. He also continued phlebotomy for the hemochromatosis. His repeat chest CT on 03/26/2021 showed unchanged slightly spiculated nodule in the right upper lobe measuring 9 mm. Additional 5 to 6 mm noncalcified nodules in the right upper lobe also appeared stable. A 4 mm nodule in the right lower lobe was noted to have increased slightly. A 6-month follow-up study was recommended. There was no mediastinal or hilar adenopathy noted. As of his follow-up visit on 03/31/2021 his ferritin was a little above target range of 115 ng/mL with transferrin saturation elevated at 60.7%, and he was recommended to continue monthly phlebotomies. He is seen for an unplanned visit, mainly because he has been under a lot of stress. He had seen Dr. Deluca in April and Dr. Posada in May. On both instances he was complaining of chest pain. He was to recommended to have further evaluation with a stress test and with pulmonary function studies, but he has declined both because due to the requirement for COVID-19 testing, to which he is adamantly opposed. This has further increased his stress levels. He describes having episodes of stabbing intense muscle pain which is mostly in the left lateral chest area. It occurs off and on, but it does not stay. He is short of breath and he thinks his breathing has been worse lately. He always has cough. He occasionally has fever, recently up to 100 degrees. His activity is very limited, but he is ambulatory. ECOG score is 2. He has not had sore mouth or throat. He currently has no GI or complaints. He has chronic pain, mostly in his neck/shoulders and back. He has no focal neurologic symptoms. Medications: Spiriva HandiHaler 1 (18 mcg) Capsule Inhalation daily, Ventolin HFA 1 (108 (90 Base) mcg/act) Aerosol, solution Inhalation daily PRN, Wixela Inhub 1 Puff(s) (of 500-50 mcg/dose) Aerosol Powder, Breath Activated Inhalation b.i.d. Allergies: No Known Allergies. Vital Signs: Performed on Jul 30, 2021 11:46 Height - 68.00 in Weight - 141.2 lbs (HIGH) BSA - 1.76 sq.m BMI - 21.47 Temperature - 98.2 F (LOW) Pulse - 83 /min Respiration - 18 /min BP - 141/89 mm(hg) (HIGH) O2 Sat - 93 % (LOW) Pain - 5 Fatigue - 7 Physical Examination: Constitutional - He appears chronically ill, Eyes - Sclerae nonicteric. Conjunctivae clear, ENMT - No lesions noted in the oral cavity, Hematologic/Lymphatic - No cervical, clavicular, or axillary adenopathy, Respiratory - Lungs show diminished air movement bilaterally. There is currently no wheezing, Cardiovascular - Heart rhythm is regular. There is no murmur, gallop, or rub noted, Abdomen - Soft. Liver and spleen are not enlarged. There is no abdominal mass or ascites noted and there is no inguinal adenopathy, Extremities - No edema, Neurologic - No focal neurologic deficits noted. Lab/Imaging: Test performed on Jul 06, 2021 11:12 Ferritin 51 ng/mL Iron 83 mcg/dL Sodium 136 mmol/L Iron Binding Capacity (TIBC) 199 mcg/dl Potassium 4.5 mmol/L % Iron Saturation 41.7 % Chloride 101 mmol/L CO2 23 mmol/L UIBC 116 mcg/dL Anion Gap 16.5 BUN 18 mg/dL Creatinine 0.7 mg/dL Cr Clearance (Est) 92.84 mL/min eGFR 112.8 mL/min Glucose 166 mg/dL Osmolality - Calculated 288 mOsm/kg Calcium 8.5 mg/dL Protein, Total 6.7 g/dL Albumin 4.2 g/dL Globulin 2.5 g/dL Bilirubin, Total 0.3 mg/dL ALT (SGPT) 13 U/L AST (SGOT) 19 U/L Alkaline Phosphatase 87 IU/L WBC 4.9 10 3/uL RBC 5.03 10 6/uL HGB 15.6 g/dL HCT 44.2 % MCV 87.9 fl MCH 31.0 pg MCHC 35.3 g/dL RDW 12.8 % Platelet Count 240 10 3/cmm MPV 9.0 fL Neutrophils 2.74 10 3/uL Lymphocytes 1.7 10 3/uL Monocytes 0.3 10 3/uL Eosinophils 0.1 10 3/uL Basophils 0.0 10 3/uL Neutrophil % 56.2 % Lymphocyte % 34.2 % Monocyte % 5.9 % Eosinophil % 2.9 % Basophils % 0.6 % NRBC % 0 % Problem List: 1. Hereditary hemochromatosis. His disease has been managed adequately with phlebotomy. 2. He has severe COPD. 3. He had CT evidence of small right upper lobe pulmonary nodules which were new since 2016. 4. He underwent treatment for hepatitis C with ribavirin/pegylated interferon from October 2005 through December 2006. 5. He has history of major depression which worsened during the hepatitis C treatment. 6. He has degenerative arthritis/degenerative disease of the spine with chronic back pain. 7. He underwent right inguinal hernia repair on 02/20/2020. Problems Addressed with this Encounter and Plan: 1. Patient with hereditary hemochromatosis. His disease has been managed adequately with phlebotomy. His serum iron studies and ferritin from February 2019 were slightly above target range. As of his follow-up visit in December 2019 his transferrin saturation had increased to 79% with ferritin 272 ng/mL, and at that point he restarted phlebotomies. As of his follow-up in March 2021 his transferrin saturation was moderately elevated at 60.7% with ferritin 115 ng/mL, and he was recommended to continue monthly phlebotomies. As of June 2020 his ferritin was in target range at 51 ng/mL with transferrin saturation down to 41.7% and he was recommended to continue phlebotomies at 3-month intervals. He will follow-up as previously scheduled. 2. His chest CT on 12/27/2019 showed small right upper lobe pulmonary nodules which were new compared to previous study from 2015. His repeat chest CT on 09/18/2020 showed a spiculated right upper lobe nodule measuring 9 mm which appeared unchanged compared to the December 2019 study. Additional nodules in the right upper lobe measuring 5 to 6 mm also appeared stable and a 3 mm right lower lobe nodule appeared unchanged. His repeat CT on 03/26/2021 showed the pulmonary nodules to be stable with the exception of a 4 mm right lower lobe nodule which had increased slightly. A 6-month follow-up CT was recommended. 3. He has pre-existing anxiety/depression, and he has been under increasing stress for a variety of issues, including chest pain. He has been recommended to have further evaluation with stress test and pulmonary function studies, but those have not been scheduled due to his refusal for COVID-19 screening. I do not think there will be any satisfactory resolution, but the description of his chest pain is such that it appears unlikely to be of cardiac origin. At this point I will see if I can get him set up for pulmonary rehab. Signed By: Jake Arroyo M.D. <<Signature on File>>
== END 2021-07-30 09:01 | disposition home or self-care (01) ==
LOC: ONCMED 08-03 08:19
PROVIDERS: PCP Family Medicine; Visit Provider Internal Medicine Medical Oncology
DX: E83.119 Hemochromatosis, unspecified (principal); B19.20 Unspecified viral hepatitis C without hepatic coma; F41.9 Anxiety disorder, unspecified; F32.A Depression, unspecified; J44.9 Chronic obstructive pulmonary disease, unspecified; R91.8 Other nonspecific abnormal finding of lung field; Z79.899 Other long term (current) drug therapy; Z87.891 Personal history of nicotine dependence
CPT/HCPCS: 99214

== ENCOUNTER 2021-10-05 13:02 | Outpatient (CLI) | payer MEDICARE, MEDICAID, SELFPAY ==
[2021-10-05 14:07] LABS: Basophils % 0.4 %; Eosinophils # 0.1 10^3/uL (0.0-0.8); Eosinophils % 2.1 %; Hematocrit 43.2 % (42.0-52.0); Hemoglobin 14.8 g/dL (11.7-16.6); Lymphocytes # 1.6 10^3/uL (0.8-4.8); Lymphocytes % 27.6 %; Mean Corpuscular HGB Conc 34.3 g/dL (30.0-36.0); Mean Corpuscular Hemoglobin 29.6 pg (28.0-34.0); Mean Corpuscular Volume 86.4 fl (80-94); Mean Platelet Volume 8.8 fL (7.4-10.4); Monocytes # 0.4 10^3/uL (0.2-0.9); Monocytes % 7.4 %; Neutrophils # 3.53 10^3/uL (1.8-7.7); Neutrophils % 62.3 %; Nucleated Red Blood Cells % 0 %; Platelet Count 309 10^3/cmm (130-400); Red Cell Distribution Width 12.8 % (12.1-15.1); White Blood Count 5.7 10^3/uL (4.0-10.0)
[2021-10-05 14:29] LABS: Ferritin 110 ng/mL (30-400); Iron 54 ug/dL (59-158); Percent Saturation 32.1 % (20-50); Total Iron Binding Capacity 168 mcg/dl; Unsaturated Iron Binding 114 ug/dL (112-347)
== END 2021-10-05 13:03 | disposition home or self-care (01) ==
PROVIDERS: PCP Family Medicine; Visit Provider Internal Medicine Medical Oncology
DX: E83.110 Hereditary hemochromatosis (principal)
CPT/HCPCS: 82728; 83540; 83550; 85025; 99195

== ENCOUNTER → 2021-10-16 09:29 | Outpatient (BNVA) | payer MEDICARE, MEDICAID, SELFPAY | PROVIDERS: PCP Family Medicine; Visit Provider Internal Medicine Pulmonary Disease | DX: J43.2 Centrilobular emphysema (principal); R91.8 Other nonspecific abnormal finding of lung field; Z87.891 Personal history of nicotine dependence | CPT/HCPCS: 99214 ==

== ENCOUNTER 2021-11-06 15:20 | Outpatient (CLI) | payer MEDICARE, MEDICAID, SELFPAY ==
--- NOTE | 2021-11-06 15:30 | CTR_ITS ---
PROCEDURE INFORMATION: Exam: CT Chest Without Contrast; Diagnostic Exam date and time: 11/06/2021 3:33 PM Age: 66 years old Clinical indication: Condition or disease; Lung condition and disease; Pulmonary nodule, solitary; Additional info: Follow up lung nodules TECHNIQUE: Imaging protocol: Diagnostic computed tomography of the chest without contrast. Radiation optimization: All CT scans at this facility use at least one of these dose optimization techniques: automated exposure control; mA and/or kV adjustment per patient size (includes targeted exams where dose is matched to clinical indication); or iterative reconstruction. COMPARISON: CT chest con [id number] 03/26/2021 11:47 AM RADIATION DOSE METRICS: Total DLP (mGy-cm): 618.81 FINDINGS: Lungs: New right lower lobe 15 mm pulmonary nodule series 3, image 45. Additionally several new right lower lobe pulmonary nodules measuring up to 4.1 mm are seen. Several right upper lobe pulmonary nodules again seen measuring up to 8.4 mm, similar in size and number compared to prior exam. Left lower lobe calcified granuloma. Emphysematous changes. Pleural spaces: Unremarkable. No pneumothorax. No pleural effusion. Heart: Unremarkable. No cardiomegaly. No pericardial effusion. Lymph nodes: Unremarkable. No enlarged lymph nodes. Aorta: Unremarkable. No aortic aneurysm. Gallbladder and bile ducts: Cholecystectomy. Bones/joints: Unremarkable. No acute fracture. Soft tissues: Unremarkable. CT/CT chest [facility] [id number] IMPRESSION: 1. New right lower lobe 15 mm pulmonary nodule series 3, image 45. Additionally several new right lower lobe pulmonary nodules measuring up to 4.1 mm are seen. Highly suspicious nodule(s). Consider non-emergent PET/CT, or tissue sampling.(Reference: Dony) 2. Several right upper lobe pulmonary nodules again seen measuring up to 8.4 mm, similar in size and number compared to prior exam. 3. Left lower lobe calcified granuloma. 4. Cholecystectomy. 5. Emphysematous changes. REFERENCES: Dony Lau et al. Guidelines for Management of Incidental Pulmonary Nodules Detected on CT Images: From the Fleischner Society 2017. Radiology. 2017;284(1):228-243.
== END 2021-11-06 15:21 | disposition home or self-care (01) ==
LOC: RAD 15:26
PROVIDERS: PCP Family Medicine; Visit Provider Internal Medicine Pulmonary Disease
DX: R91.8 Other nonspecific abnormal finding of lung field (principal); J84.10 Pulmonary fibrosis, unspecified
CPT/HCPCS: 71250

== ENCOUNTER 2021-11-23 | Outpatient (RCR) | payer MEDICARE, MEDICAID, SELFPAY | END 2021-12-15 23:59 | disposition home or self-care (01) | LOC: SPT | PROVIDERS: PCP Family Medicine; Referring Provider Family Medicine; Visit Provider Family Medicine | DX: M41.9 Scoliosis, unspecified (principal) | CPT/HCPCS: 97110; 97161; G0283 ==

== ENCOUNTER 2021-11-23 08:10 | Oncology outpatient (recurring) (ONCR) | payer MEDICARE, MEDICAID, SELFPAY ==
[2021-11-23 08:57] LABS: Basophils % 0.6 %; Eosinophils # 0.1 10^3/uL (0.0-0.8); Eosinophils % 2.7 %; Hematocrit 43.4 % (42.0-52.0); Lymphocytes # 1.1 10^3/uL (0.8-4.8); Lymphocytes % 34.2 %; Mean Corpuscular HGB Conc 34.6 g/dL (30.0-36.0); Mean Corpuscular Hemoglobin 29.7 pg (28.0-34.0); Mean Corpuscular Volume 85.9 fl (80-94); Mean Platelet Volume 8.9 fL (7.4-10.4); Monocytes # 0.3 10^3/uL (0.2-0.9); Monocytes % 7.9 %; Neutrophils # 1.79 10^3/uL (1.8-7.7); Neutrophils % 54.3 %; Nucleated Red Blood Cells % 0 %; Platelet Count 230 10^3/cmm (130-400); Red Blood Count 5.05 10^6/uL (4.1-5.3); Red Cell Distribution Width 12.8 % (12.1-15.1); White Blood Count 3.3 10^3/uL (4.0-10.0)
[2021-11-23 09:39] LABS: Ferritin 61 ng/mL (30-400); Iron 76 ug/dL (59-158); Total Iron Binding Capacity 223 mcg/dl; Unsaturated Iron Binding 147 ug/dL (112-347)
[2021-11-23 09:55] VITALS: BP 168/63; PULSE 79; RESP 18; TEMP 36.7; O2SAT 99
== END 2021-12-15 23:59 | disposition home or self-care (01) ==
PROVIDERS: PCP Family Medicine; Visit Provider Internal Medicine Medical Oncology
DX: E83.110 Hereditary hemochromatosis (principal)
CPT/HCPCS: 82728; 83540; 83550; 85025; 99195

== ENCOUNTER 2021-12-16 06:00 | Outpatient (RCR) | payer MEDICARE, MEDICAID, SELFPAY | END 2022-01-14 23:59 | disposition home or self-care (01) | LOC: SPT 06:00 | PROVIDERS: PCP Family Medicine; Referring Provider Family Medicine; Visit Provider Family Medicine | DX: M54.9 Dorsalgia, unspecified (principal) | CPT/HCPCS: 97032; 97110 ==

== ENCOUNTER 2021-12-26 10:55 | Emergency (ER) | payer MEDICARE, MEDICAID, SELFPAY ==
[2021-12-26 11:27] VITALS: BP 152/99; PULSE 80; RESP 16; TEMP 36.8; BMI 24.0
--- NOTE | 2021-12-26 11:49 | W.ED.SOB ---
HPI - SOB/Dyspnea General: Chief Complaint: Shortness of Breath/Dyspnea Stated Complaint: SOB/dizziness Time Seen by Provider: 12/26/21 11:33 History of Present Illness: HPI Narrative: Patient comes in with some shortness of breath. States that he is really doing fine, he was just hoping I can get him put on oxygen. Physical exam is unremarkable. His oxygen saturations are in the 90s on room air. I talked to him about following up with his primary care physician and will discharge home at this time. The patient is agreeable with the plan. Associated symptoms: Deny abdominal pain, chest pain, fever(s), nausea, palpitations, polyuria or vomiting Review of Systems Const: Denies: fever(s) or body aches Eyes: Denies: change in vision or blurry vision ENMT: Denies: throat pain or odynophagia Card: Denies: chest pain or palpitations Resp: Denies: dyspnea or productive cough GI: Denies: abdominal pain, nausea or vomiting : Denies: flank pain or dysuria Musc: Denies: neck pain or back pain Skin/Breast: Denies: rash or pruritus Neuro: Denies: headache(s) or numbness in extremities Psych: Denies: anxiety or change in appetite Endo: Denies: polyuria or excessive sweating PFSH ED PFSH: Medical History COPD (chronic obstructive pulmonary disease) Family history of hemochromatosis Hemochromatosis, hereditary Surgical History H/O circumcision H/O colonoscopy 2015 H/O left inguinal hernia repair Hx of cholecystectomy Status post right inguinal hernia repair (02/20/20) Family History Mother Cancer stomach Denies family history of Diabetes CAD (coronary artery disease) Anesthesia complication Bleeding disorder Social History Smoking and tobacco status: former smoker Quit status (tobacco): has quit using tobacco Year quit tobacco: 2001 [id number] Second hand smoke exposure: Yes Smoking risk assessment/counseling performed?: Yes Alcohol intake: current Alcohol intake frequency: holidays/special occasions only Desire information about substance/drug rehabilitation?: No Lives independently: Yes Household members: none Marital status: Single service: No Current occupational status: disabled Pets and animals: Yes History of recent travel: No Current gender identity: Male Physical Exam Const: COMMON NORMALS: no acute distress, patient oriented x3, healthy appearing and alert HENMT: COMMON NORMALS: normocephalic and atraumatic HEAD & SCALP: normocephalic and atraumatic Eye: COMMON NORMALS: Equal, round and reactive pupils present and EOMs intact bilaterally PUPIL: Yes Equal, round and reactive pupils present Neck/C-Spine: COMMON NORMALS: full ROM and supple Resp: COMMON NORMALS: normal respiratory effort, No retractions and No use of accessory muscles Cardio: COMMON NORMALS: regular rate and regular rhythm RATE: regular rate RHYTHM: regular rhythm GI: COMMON NORMALS: Normal to inspection, nondistended, normoactive bowel sounds present, Soft to palpation and non-tender PALPATION: Yes Soft to palpation Back/Pelvis: COMMON NORMALS: thoracic and lumbar spine normal to inspection and no thoracic nor lumbar tenderness Extremity: COMMON NORMALS: normal to inspection and full ROM Neuro: COMMON NORMALS: patient oriented x3 SENSORIUM/ORIENTATION: Yes alert Psych: COMMON NORMALS: mental status grossly normal and cooperative Skin: COMMON NORMALS: no rashes or lesions noted and no wounds GENERAL SKIN EXAM: no rashes or lesions noted Course Vital Signs: Vital signs: Vital Signs Temperature 98.2 F 12/26/21 11:27 Pulse Rate 80 12/26/21 11:27 Respiratory Rate 16 12/26/21 11:27 Blood Pressure 152/99 12/26/21 11:27 MDM - SOB/Dyspnea Medical Decision Making Patient comes in with a buzzing sensation in her head. States that it has been there for a couple years constant. States that this morning when it was happening she felt weak and dizzy and had to sit down. States that she has had a head CT through her primary care physician and is supposed to be scheduled for CTA head and neck. On physical exam she is tachycardic. She has a grossly normal neuro exam with no lateralizing symptoms. We will check labs, EKG, CTA head and neck, and reassess. Discharge Plan Discharge Patient Disposition: Home Clinical Impression: Encounter for medical screening examination Condition: Stable Prescriptions: No Action fluticasone propion-salmeterol [Advair Diskus] 500-50 mcg/dose blister with device 1 inh inhalation BID 90 Days Qty: 180 3RF Spiriva with HandiHaler 18 mcg capsule, w/inhalation device 1 cap inhalation DAILY 90 Days Qty: 90 2RF albuterol sulfate [Ventolin HFA] 90 mcg/actuation HFA aerosol inhaler 2 puff INHALATION Q4H PRN (Reason: Shortness Of Breath) Qty: 8.5 5RF Discharge Orders: Discharge ED (Routine); Ordered 12/26/21 Ordered By: Dar Franco Referrals: Baltazar Simon DO [Primary Care Provider] - Coding Level of Care Code ED Green Chain Worker for Chg Joya
== END 2021-12-26 11:53 | disposition home or self-care (01) ==
PROVIDERS: Emergency Provider Emergency Medicine; PCP Family Medicine
DX: R06.02 Shortness of breath (principal); Z87.891 Personal history of nicotine dependence; J44.9 Chronic obstructive pulmonary disease, unspecified
CPT/HCPCS: 99281

== ENCOUNTER 2022-02-03 07:17 | Outpatient (CLI) | payer MEDICARE, MEDICAID, SELFPAY ==
--- NOTE | 2022-02-03 07:15 | CT_ITS ---
WS: [id number] CT CHEST TECHNIQUE: Noncontrast CT of the chest with coronal and sagittal reformatted images. CLINICAL INFORMATION: lung nodule COMPARISON: CT November 06, 2021 DLP: 593.[address] scans at [facility] use at least one of these dose optimization techniques: automated e xposure control; mA and/or kV adjustment per patient size (includes targeted exams where dose is matc hed to clinical indication); or iterative reconstruction. FINDINGS: Previously described 1.5 cm pulmonary opacity RIGHT lower lobe has resolved compared to previous. Aga in seen are multiple bilateral pulmonary nodules RIGHT greater than LEFT. Largest pulmonary nodules t kathie in RIGHT upper lobe measuring up to 8 mm. These are unchanged from previous. Multiple additional subcentimeter pulmonary nodules are unchanged. No mediastinal or hilar lymphadenopathy. Aortic calcification. Calcified LEFT hilar lymph nodes. Cholecystectomy clips. Adrenal glands are normal. Splenic granulomas. Splenic artery calcification. CT/CT chest wo con [id number] IMPRESSION: 1. Pulmonary opacity RIGHT lower lobe measuring 1.5 cm along the fissure has r esolved compared to previous 2. Otherwise no significant changes compared to previous. Subcentimeter bilate ral pulmonary nodules are stable. 3. Largest slightly spiculated pulmonary nodule RIGHT upper lobe measuring 8 m m is unchanged. Recommend 6 month follow-up.
== END 2022-02-03 07:18 | disposition home or self-care (01) ==
LOC: RAD 07:18
PROVIDERS: PCP Family Medicine; Visit Provider Internal Medicine Medical Oncology
DX: E83.110 Hereditary hemochromatosis (principal); R91.1 Solitary pulmonary nodule
CPT/HCPCS: 71250

== ENCOUNTER 2022-02-03 09:15 | Oncology outpatient (recurring) (ONCR) | payer MEDICARE, MEDICAID, SELFPAY ==
[2022-02-03 09:49] LABS: Basophils % 0.7 %; Eosinophils # 0.1 10^3/uL (0.0-0.8); Hematocrit 47.6 % (42.0-52.0); Lymphocytes # 1.3 10^3/uL (0.8-4.8); Lymphocytes % 32.4 %; Mean Corpuscular HGB Conc 33.6 g/dL (30.0-36.0); Mean Corpuscular Hemoglobin 29.1 pg (28.0-34.0); Mean Corpuscular Volume 86.5 fl (80-94); Mean Platelet Volume 8.8 fL (7.4-10.4); Monocytes # 0.2 10^3/uL (0.2-0.9); Monocytes % 5.7 %; Neutrophils # 2.36 10^3/uL (1.8-7.7); Nucleated Red Blood Cells % 0 %; Platelet Count 234 10^3/cmm (130-400); Red Cell Distribution Width 12.6 % (12.1-15.1)
[2022-02-03 10:25] LABS: Alanine Aminotransferase 14 U/L (0-41); Albumin Level 4.4 g/dL (3.5-5.2); Alkaline Phosphatase 90 IU/L (40-130); Anion Gap 15.3 (5-19); Aspartate Amino Transferase 21 U/L (0-40); Blood Urea Nitrogen 15 mg/dL (8-23); Calcium 9.1 mg/dL (8.5-10.5); Carbon Dioxide 25 mmol/L (22-29); Chloride 99 mmol/L (98-107); Ferritin 74 ng/mL (30-400); Globulin 2.7 g/dL (1.3-4.6); Glomerular Filtration Rate 112.8 mL/min (90-130); Glucose 182 mg/dL (65-115); Iron 203 ug/dL (59-158); Osmolality Calculated 285 mOsm/kg (285-295); Potassium 4.3 mmol/L (3.5-5.1); Sodium 135 mmol/L (136-145); Total Bilirubin 0.7 mg/dL (0.15-1.2); Total Protein 7.1 g/dL (6.6-8.7)
[2022-02-03 12:29] VITALS: BP 119/82; PULSE 68; RESP 16; TEMP 36.5; O2SAT 96
[2022-02-03 13:34] LABS: Unsaturated Iron Binding < 17 ug/dL (112-347)
== END 2022-02-14 23:59 | disposition home or self-care (01) ==
PROVIDERS: PCP Family Medicine; Visit Provider Internal Medicine Medical Oncology
DX: E83.110 Hereditary hemochromatosis (principal); R91.1 Solitary pulmonary nodule; R22.2 Localized swelling, mass and lump, trunk; Z79.899 Other long term (current) drug therapy
CPT/HCPCS: 36415; 71250; 80053; 82728; 83540; 83550; 85025; 99195; 99214

== ENCOUNTER 2022-05-17 11:27 | Oncology outpatient (recurring) (ONCR) | payer MEDICARE, MEDICAID, SELFPAY ==
[2022-05-17 11:57] LABS: Basophils % 0.4 %; Eosinophils # 0.1 10^3/uL (0.0-0.8); Eosinophils % 2.4 %; Hematocrit 43.6 % (42.0-52.0); Hemoglobin 15.2 g/dL (11.7-16.6); Lymphocytes # 1.6 10^3/uL (0.8-4.8); Lymphocytes % 32.7 %; Mean Corpuscular HGB Conc 34.9 g/dL (30.0-36.0); Mean Corpuscular Hemoglobin 30.1 pg (28.0-34.0); Mean Corpuscular Volume 86.3 fl (80-94); Mean Platelet Volume 8.9 fL (7.4-10.4); Monocytes # 0.3 10^3/uL (0.2-0.9); Monocytes % 6.8 %; Neutrophils # 2.86 10^3/uL (1.8-7.7); Neutrophils % 57.5 %; Nucleated Red Blood Cells % 0 %; Platelet Count 225 10^3/cmm (130-400); Red Blood Count 5.05 10^6/uL (4.1-5.3); Red Cell Distribution Width 12.9 % (12.1-15.1)
[2022-05-17 12:16] LABS: Alanine Aminotransferase 17 U/L (0-41); Albumin Level 4.1 g/dL (3.5-5.2); Alkaline Phosphatase 90 U/L (40-130); Anion Gap 10.3 (5-19); Aspartate Amino Transferase 18 U/L (0-40); Blood Urea Nitrogen 15 mg/dL (8-23); Calcium 9.5 mg/dL (8.5-10.5); Carbon Dioxide 29 mmol/L (22-29); Chloride 96 mmol/L (98-107); Glomerular Filtration Rate 112.8 mL/min (90-130); Glucose 104 mg/dL (65-115); Osmolality Calculated 273 mOsm/kg (285-295); Potassium 4.3 mmol/L (3.5-5.1); Sodium 131 mmol/L (136-145); Total Bilirubin 0.2 mg/dL (0.15-1.2); Total Protein 7.1 g/dL (6.6-8.7)
[2022-05-17 13:47] LABS: Ferritin 52 ng/mL (30-400); Iron 117 ug/dL (59-158); Percent Saturation 59.6 % (20-50); Total Iron Binding Capacity 196 mcg/dl; Unsaturated Iron Binding 79 ug/dL (112-347)
== END 2022-05-17 23:59 | disposition home or self-care (01) ==
PROVIDERS: PCP Family Medicine; Visit Provider Internal Medicine Medical Oncology
DX: E83.110 Hereditary hemochromatosis (principal); Z79.899 Other long term (current) drug therapy
CPT/HCPCS: 80053; 82728; 83540; 83550; 85025; 99214

== ENCOUNTER 2022-06-29 09:20 | Outpatient (CLI) | payer MEDICARE, MEDICAID, SELFPAY ==
--- NOTE | 2022-06-29 09:00 | CT_ITS ---
WS: [id number] CT CHEST TECHNIQUE: Noncontrast CT of the chest with coronal and sagittal reformatted images. CLINICAL INFORMATION: Follow-up for pulmonary nodules COMPARISON: CT February 03, 2022 DLP: 627.[address] scans at [facility] use at least one of these dose optimization techniques: automated e xposure control; mA and/or kV adjustment per patient size (includes targeted exams where dose is matc hed to clinical indication); or iterative reconstruction. FINDINGS: Spiculated nodule RIGHT upper lobe measuring 8 mm is unchanged. Additional subcentimeter noncalcified pulmonary nodules are stable compared to previous.. Advanced chronic emphysematous changes with bulla formation. Calcified granuloma LEFT lower lobe. A few patchy fibrotic appearing opacities RIGHT lower lobe peripherally likely inflammatory. Similar- appearing opacities LEFT lower lobe posteriorly. Normal caliber thoracic aorta. Aortic calcification. No mediastinal or hilar lymphadenopathy. No axillary lymphadenopathy. Adrenal glands are normal. Normal GE junction. CT/CT chest wo con [id number] IMPRESSION: 1. Numerous noncalcified scattered pulmonary nodules unchanged from previous l argest measuring approximately 8 mm RIGHT upper lobe with slight spiculation. R ecommend 12 month follow-up. No 2. No mediastinal or hilar lymphadenopathy. 3. Fibrotic scattered opacities in the subpleural RIGHT lower lobe and LEFT lo wer lobe posteriorly slightly progressed compared to previous may be fibrotic, infectious, or inflammatory. 4. No focal pneumonia or pleural fluid. 5. No other significant interval changes.
== END 2022-06-29 09:21 | disposition home or self-care (01) ==
LOC: RAD 09:21
PROVIDERS: PCP Family Medicine; Visit Provider Internal Medicine Medical Oncology
DX: R91.8 Other nonspecific abnormal finding of lung field (principal); J43.2 Centrilobular emphysema; Z87.891 Personal history of nicotine dependence
CPT/HCPCS: 71250; 99214

== ENCOUNTER 2022-06-29 11:49 | Oncology outpatient (recurring) (ONCR) | payer MEDICARE, MEDICAID, SELFPAY | END 2022-07-17 23:59 | disposition home or self-care (01) | PROVIDERS: PCP Family Medicine; Visit Provider Internal Medicine Medical Oncology | DX: J43.2 Centrilobular emphysema (principal); R91.1 Solitary pulmonary nodule; R06.02 Shortness of breath; R09.02 Hypoxemia; Z99.81 Dependence on supplemental oxygen; E83.110 Hereditary hemochromatosis; Z79.899 Other long term (current) drug therapy; Z87.891 Personal history of nicotine dependence | CPT/HCPCS: 99214 ==

== ENCOUNTER 2022-08-25 13:00 | Oncology outpatient (recurring) (ONCR) | payer MEDICARE, MEDICAID, SELFPAY ==
[2022-08-25 13:57] LABS: Basophils % 0.5 %; Eosinophils # 0.1 10^3/uL (0.0-0.8); Eosinophils % 2.8 %; Hemoglobin 14.9 g/dL (11.7-16.6); Lymphocytes # 1.3 10^3/uL (0.8-4.8); Lymphocytes % 30.7 %; Mean Corpuscular HGB Conc 33.9 g/dL (30.0-36.0); Mean Corpuscular Hemoglobin 30.4 pg (28.0-34.0); Mean Corpuscular Volume 89.8 fl (80-94); Mean Platelet Volume 9.2 fL (7.4-10.4); Monocytes # 0.4 10^3/uL (0.2-0.9); Monocytes % 8.6 %; Neutrophils # 2.46 10^3/uL (1.8-7.7); Neutrophils % 57.2 %; Nucleated Red Blood Cells % 0 %; Platelet Count 222 10^3/cmm (130-400); Red Cell Distribution Width 12.8 % (12.1-15.1); White Blood Count 4.3 10^3/uL (4.0-10.0)
[2022-08-25 14:22] LABS: Alanine Aminotransferase 18 U/L (0-41); Albumin Level 4.1 g/dL (3.5-5.2); Alkaline Phosphatase 87 U/L (40-130); Anion Gap 9.4 (5-19); Aspartate Amino Transferase 21 U/L (0-40); Blood Urea Nitrogen 16 mg/dL (8-23); Calcium 9.4 mg/dL (8.5-10.5); Carbon Dioxide 31 mmol/L (22-29); Chloride 100 mmol/L (98-107); Ferritin 70 ng/mL (30-400); Globulin 2.3 g/dL (1.3-4.6); Glomerular Filtration Rate 112.5 mL/min (90-130); Glucose 93 mg/dL (65-115); Iron 150 ug/dL (59-158); Osmolality Calculated 283 mOsm/kg (285-295); Percent Saturation 84.7 % (20-50); Potassium 4.4 mmol/L (3.5-5.1); Sodium 136 mmol/L (136-145); Total Bilirubin 0.3 mg/dL (0.15-1.2); Total Iron Binding Capacity 177 mcg/dl; Total Protein 6.4 g/dL (6.6-8.7); Unsaturated Iron Binding 27 ug/dL (112-347)
== END 2022-09-14 23:59 | disposition home or self-care (01) ==
PROVIDERS: PCP Family Medicine; Visit Provider Internal Medicine Medical Oncology
DX: E83.110 Hereditary hemochromatosis; Z79.899 Other long term (current) drug therapy; Z87.891 Personal history of nicotine dependence
CPT/HCPCS: 36415; 80053; 82728; 83540; 83550; 85025; 99214

== ENCOUNTER → 2022-09-08 10:14 | Outpatient (BNVA) | payer MEDICARE, MEDICAID, SELFPAY | PROVIDERS: PCP Family Medicine; Visit Provider Family Medicine | DX: N50.89 Other specified disorders of the male genital organs (principal) | CPT/HCPCS: 81000; 87086 ==

== ENCOUNTER 2022-09-22 10:44 | Oncology outpatient (recurring) (ONCR) | payer MEDICARE, MEDICAID, SELFPAY ==
[2022-09-22 11:13] LABS: Basophils % 0.3 %; Eosinophils # 0.1 10^3/uL (0.0-0.8); Eosinophils % 1.2 %; Hematocrit 45.1 % (42.0-52.0); Hemoglobin 15.3 g/dL (11.7-16.6); Lymphocytes # 1.1 10^3/uL (0.8-4.8); Lymphocytes % 18.7 %; Mean Corpuscular HGB Conc 33.9 g/dL (30.0-36.0); Mean Corpuscular Hemoglobin 30.2 pg (28.0-34.0); Mean Corpuscular Volume 89.1 fl (80-94); Mean Platelet Volume 8.8 fL (7.4-10.4); Monocytes # 0.5 10^3/uL (0.2-0.9); Monocytes % 8.6 %; Neutrophils # 4.28 10^3/uL (1.8-7.7); Neutrophils % 70.9 %; Nucleated Red Blood Cells % 0 %; Platelet Count 243 10^3/cmm (130-400); Red Blood Count 5.06 10^6/uL (4.1-5.3); Red Cell Distribution Width 12.5 % (12.1-15.1)
[2022-09-22 11:38] LABS: Ferritin 180 ng/mL (30-400); Iron 43 ug/dL (59-158); Percent Saturation 22.8 % (20-50); Total Iron Binding Capacity 188 mcg/dl; Unsaturated Iron Binding 145 ug/dL (112-347)
== END 2022-10-15 23:59 | disposition home or self-care (01) ==
PROVIDERS: Nurse Practitioner; PCP Family Medicine; Visit Provider Internal Medicine Medical Oncology
DX: E83.110 Hereditary hemochromatosis (principal); Z79.899 Other long term (current) drug therapy; Z87.891 Personal history of nicotine dependence
CPT/HCPCS: 36415; 82728; 83540; 83550; 85025

== ENCOUNTER 2022-10-20 09:09 | Oncology outpatient (recurring) (ONCR) | payer MEDICARE, MEDICAID, SELFPAY ==
[2022-10-20 09:30] LABS: Basophils % 0.7 %; Eosinophils # 0.1 10^3/uL (0.0-0.8); Eosinophils % 2.5 %; Hematocrit 44.1 % (42.0-52.0); Hemoglobin 15.2 g/dL (11.7-16.6); Lymphocytes # 1.3 10^3/uL (0.8-4.8); Lymphocytes % 29.2 %; Mean Corpuscular HGB Conc 34.5 g/dL (30.0-36.0); Mean Corpuscular Volume 87.2 fl (80-94); Mean Platelet Volume 8.8 fL (7.4-10.4); Monocytes # 0.3 10^3/uL (0.2-0.9); Monocytes % 7.7 %; Neutrophils # 2.64 10^3/uL (1.8-7.7); Neutrophils % 59.7 %; Nucleated Red Blood Cells % 0 %; Platelet Count 222 10^3/cmm (130-400); Red Blood Count 5.06 10^6/uL (4.1-5.3); Red Cell Distribution Width 12.4 % (12.1-15.1); White Blood Count 4.4 10^3/uL (4.0-10.0)
[2022-10-20 09:48] LABS: Ferritin 123 ng/mL (30-400)
== END 2022-11-14 23:59 | disposition home or self-care (01) ==
LOC: ONCMED 09:09
PROVIDERS: Nurse Practitioner; PCP Family Medicine; Visit Provider Internal Medicine Medical Oncology
DX: E83.110 Hereditary hemochromatosis (principal)
CPT/HCPCS: 36415; 82728; 85025

== ENCOUNTER 2022-11-17 12:13 | Oncology outpatient (recurring) (ONCR) | payer MEDICARE, MEDICAID, SELFPAY ==
[2022-11-17 14:16] LABS: Basophils % 0.2 %; Eosinophils # 0.1 10^3/uL (0.0-0.8); Eosinophils % 2.7 %; Hematocrit 43.5 % (42.0-52.0); Lymphocytes # 1.7 10^3/uL (0.8-4.8); Lymphocytes % 32.5 %; Mean Corpuscular HGB Conc 34.5 g/dL (30.0-36.0); Mean Corpuscular Hemoglobin 30.6 pg (28.0-34.0); Mean Corpuscular Volume 88.8 fl (80-94); Monocytes # 0.4 10^3/uL (0.2-0.9); Monocytes % 7.6 %; Neutrophils # 2.97 10^3/uL (1.8-7.7); Neutrophils % 56.8 %; Nucleated Red Blood Cells % 0 %; Platelet Count 207 10^3/cmm (130-400); Red Cell Distribution Width 12.5 % (12.1-15.1); White Blood Count 5.2 10^3/uL (4.0-10.0)
[2022-11-17 14:38] LABS: Alanine Aminotransferase 19 U/L (0-41); Albumin Level 4.3 g/dL (3.5-5.2); Alkaline Phosphatase 88 U/L (40-130); Blood Urea Nitrogen 19 mg/dL (8-23); Calcium 9.1 mg/dL (8.5-10.5); Carbon Dioxide 27 mmol/L (22-29); Chloride 100 mmol/L (98-107); Ferritin 110 ng/mL (30-400); Globulin 2.4 g/dL (1.3-4.6); Glomerular Filtration Rate 165.9 mL/min (90-130); Glucose 88 mg/dL (65-115); Iron 99 ug/dL (59-158); Osmolality Calculated 286 mOsm/kg (285-295); Sodium 137 mmol/L (136-145); Total Bilirubin 0.3 mg/dL (0.15-1.2); Total Protein 6.7 g/dL (6.6-8.7)
[2022-11-17 14:40] VITALS: BP 121/70; PULSE 78; RESP 18; TEMP 36.2; O2SAT 96
[2022-11-17 14:41] LABS: Anion Gap 14.4 (5-19); Aspartate Amino Transferase 23 U/L (0-40); Potassium 4.4 mmol/L (3.5-5.1)
[2022-11-17 15:06] LABS: Total Iron Binding Capacity 206 mcg/dl; Unsaturated Iron Binding 107 ug/dL (112-347)
== END 2022-12-15 23:59 | disposition home or self-care (01) ==
PROVIDERS: PCP Family Medicine; Visit Provider Internal Medicine Medical Oncology
DX: E83.110 Hereditary hemochromatosis (principal); J43.2 Centrilobular emphysema; R91.1 Solitary pulmonary nodule; Z79.52 Long term (current) use of systemic steroids; Z79.899 Other long term (current) drug therapy; Z87.891 Personal history of nicotine dependence
CPT/HCPCS: 36415; 80053; 82728; 83540; 83550; 85025; 99195; 99214

== ENCOUNTER 2023-02-22 11:23 | Oncology outpatient (recurring) (ONCR) | payer MEDICARE, MEDICAID, SELFPAY ==
[2023-02-22 11:43] VITALS: BP 153/78; PULSE 71; RESP 18; TEMP 36.3; O2SAT 92
[2023-02-22 11:53] LABS: Basophils % 0.5 %; Eosinophils # 0.1 10^3/uL (0.0-0.8); Eosinophils % 2.9 %; Hematocrit 45.3 % (42.0-52.0); Hemoglobin 15.7 g/dL (11.7-16.6); Lymphocytes # 1.6 10^3/uL (0.8-4.8); Lymphocytes % 39.3 %; Mean Corpuscular HGB Conc 34.7 g/dL (30.0-36.0); Mean Corpuscular Hemoglobin 30.4 pg (28.0-34.0); Mean Corpuscular Volume 87.6 fl (80-94); Mean Platelet Volume 8.4 fL (7.4-10.4); Monocytes # 0.3 10^3/uL (0.2-0.9); Neutrophils # 2.09 10^3/uL (1.8-7.7); Neutrophils % 50.1 %; Nucleated Red Blood Cells % 0 %; Platelet Count 240 10^3/cmm (130-400); Red Blood Count 5.17 10^6/uL (4.1-5.3); Red Cell Distribution Width 12.6 % (12.1-15.1); White Blood Count 4.2 10^3/uL (4.0-10.0)
[2023-02-22 12:14] LABS: Alanine Aminotransferase 20 U/L (0-41); Albumin Level 4.3 g/dL (3.5-5.2); Alkaline Phosphatase 88 U/L (40-130); Aspartate Amino Transferase 32 U/L (0-40); Blood Urea Nitrogen 9 mg/dL (8-23); Calcium 9.5 mg/dL (8.5-10.5); Carbon Dioxide 30 mmol/L (22-29); Chloride 97 mmol/L (98-107); Ferritin 96 ng/mL (30-400); Globulin 2.6 g/dL (1.3-4.6); Glomerular Filtration Rate 134.4 mL/min (90-130); Glucose 100 mg/dL (65-115); Iron 112 ug/dL (59-158); Osmolality Calculated 281 mOsm/kg (285-295); Percent Saturation 62.9 % (20-50); Sodium 136 mmol/L (136-145); Total Bilirubin 0.4 mg/dL (0.15-1.2); Total Iron Binding Capacity 178 mcg/dl; Total Protein 6.9 g/dL (6.6-8.7); Unsaturated Iron Binding 66 ug/dL (112-347)
[2023-02-22 12:20] LABS: Anion Gap 13.9 (5-19); Potassium 4.9 mmol/L (3.5-5.1)
[2023-02-22 14:05] VITALS: BP 113/67; PULSE 97; RESP 16; TEMP 36; O2SAT 100
== END 2023-03-17 23:59 | disposition home or self-care (01) ==
PROVIDERS: PCP Family Medicine; Visit Provider Internal Medicine Medical Oncology
DX: E83.110 Hereditary hemochromatosis (principal); J43.2 Centrilobular emphysema; R91.8 Other nonspecific abnormal finding of lung field; Z99.81 Dependence on supplemental oxygen
CPT/HCPCS: 36415; 80053; 82728; 83540; 83550; 85025; 99195; 99214

== ENCOUNTER 2025-07-17 20:55 | Emergency (ER) | payer MEDICARE, MEDICAID, SELFPAY ==
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
[2025-07-17 20:56] VITALS: BP 147/71; PULSE 111; RESP 18; TEMP 37.1; O2SAT 87; BMI 19.5
--- OUTSIDE RECORDS SUMMARY | 2025-07-17 21:01 | XMS_ITS | Encounter Summary ---
Author Organization [employer] [facility] Address [address] [place] [address] Care Team Providers Care Needle Punch Operator Name Role Phone Unavailable Primary Care Provider Renee e Encounter Details Date Type Department Care Team (Late st Contact Info) Description 10/04/2002 Outpatient Historical [facility] Jorge Ga, Ronnie Dominique MD [address] [place] [address] METABOLISM DISORDER NOS (Primary Dx) Social History Tobacco Use Types Packs/Day Years Used Date Smoking Tobacco: Never Assessed Sex and Gender Information Value Date Recorded Sex Assigned at Not on file 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
--- OUTSIDE RECORDS SUMMARY | 2025-07-17 21:01 | XMS_ITS | Encounter Summary ---
Author Organization [facility] Address [address] [place] [address] Care Team Providers Care Record Tabulating Clerk Name Role Phone Unavailable Primary Care Provider Unavailwilliam e Encounter Details Date Type Department Care Team (Latest Contact Info) Description 08/15/2001 Outpatient Historical [facility] Oral and Maxillo Surgery- [address] [place] [address] Driss Mahmood, DDS NO ADDRESS ON FILE UNSPEC DENTAL CARIES (Primary Dx) Social History Tobacco Use Types Packs/Day Years Used Date Smoking Tobacco: Never Assessed Sex and Gender Information Value Date Recorded Sex Assigned at Not on file 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
--- OUTSIDE RECORDS SUMMARY | 2025-07-17 21:01 | XMS_ITS | Encounter Summary ---
Author Organization [employer] [facility] Address [address] [place] [address] Care Team Providers Care Labor Delivery Rn Name Role Phone Unavailable Primary Care Provider Unavailwilliam e Encounter Details Date Type Department Care Team (Latest Contact Info) Description 12/12/2002 Outpatient Historical HIS [facility] Joseph Corley MD [address] [place] [address] DIS IRON METABOLISM (Primary Dx); CHRONIC AIRWAY OBSTRUCTION NEC (CMS/HCC); TOBACCO USE DISORDER Social History Tobacco Use Types Packs/Day Years Used Date Smoking Tobacco: Never Assessed Sex and Gender Information Value Date Recorded Sex Assigned at Not on file 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
--- OUTSIDE RECORDS SUMMARY | 2025-07-17 21:01 | XMS_ITS | Encounter Summary ---
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
--- OUTSIDE RECORDS SUMMARY | 2025-07-17 21:01 | XMS_ITS | Encounter Summary ---
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
--- OUTSIDE RECORDS SUMMARY | 2025-07-17 21:01 | XMS_ITS | Encounter Summary ---
Author Organization [facility] Address [address] [place] [address] Care Team Providers Care Search Engine Optimization Consultant Name Role Phone Unavailable Primary Care Provider Renee e Encounter Details Date Type Department Care Team (Late st Contact Info) Description 06/22/2007 Outpatient Historical [facility] Gastroenterology- [place] [address] [place] [address] Mayo Frederick MD [address] [place] [address] Social History Tobacco Use Types Packs/Day Years Used Date Smoking Tobacco: Never Assessed Sex and Gender Information Value Date Recorded Sex Assigned at Not on file 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
--- OUTSIDE RECORDS SUMMARY | 2025-07-17 21:01 | XMS_ITS | Patient Health Record ---
Author Organization [employer] [facility] Address [address] [place] [address] Care Team Providers Care Implementation Architect Name Role Phone Baltazar Simon DO Primary Care Provider Unavail able Allergies No Known Allergies Reason For Referral No Information Medications Medication SIG (Take, Route, Frequency, Duration) Notes Start Date End Date Status tiotropium 0.018 MG/ACTUAT Inhalant Powder [Spiriva] tiotropium 0.018 MG/ACTUAT Inhalant Powder [Spiriva] *Reorder from [employer] [employer] [facility] for eRx and Interaction Alerts* 01/10/2019 Active Oxygen - Home Use *Reorder from [employer] [employer] [facility] for eRx and Interaction Alerts* Active Albuterol *Reorder from [employer] for eRx and Interaction Alerts* Active Advair HFA *Pick strength-f orm from [employer] for eRX* Active Immunizations Vaccine Route Administration Date Status Comme nts Influenza (whole), CPT 38499 Inactive Unknown 04/18/2017 Administered Influenza (whole), CPT 08545 Inactive Unknown 05/04/2017 Administered Influenza (whole), CPT 72612 Inactive Unknown 05/18/2018 Administered Social History Social History Additional Details Category Social Info Options Details Migrated Social History zzMigrated Social History (Migrated Social History):Smoking Status:Ex-smoker (finding) Tobacco Use: (Tobacco Use/Smoking):Are you a: former smoker , How long has it been since you last smoked?: > 10 years Problems Problem Type SNOMED Code ICD Code Onset Dates Problem Status W/U Status Risk Notes Problem Nocturia (923324098) Nocturia (R35.1) Active confirmed Problem Disorder of male genital organ (52631058) Other specified disorders of the male genital organs (N50.89) Active confirmed Problem Epididymal cyst (45107935) Epididymal cyst (N50.3) Active confirmed Plan Of Treatment No Information Insurance Providers Payer Name Payer Address Payer Phone Subscriber Number Group Number Insured Name Patient Relationship to Insured Coverage Start Date Coverage End Date [place] Medicare [address] ROSSANA BRYAN SANTILLAN [id number] Milan Winters Self - patient is the insured [place] Medicaid [address] [place], [place] [id number] Milan Winters Self - patient is the insured Medical (General) History Medical History History ICD Code Chronic obstructive lung disease Chronic pain Hereditary hemochromatosis History of - psychiatric disorder Homeless single person 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
--- OUTSIDE RECORDS SUMMARY | 2025-07-17 21:01 | XMS_ITS | Encounter Summary ---
Author Organization [employer] [facility] Address [address] [place] [address] Care Team Providers Care Glass Toughening Operator Name Role Phone Unavailable Primary Care Provider Renee e Encounter Details Date Type Department Care Team (Latest Contact Info) Description 09/24/2002 Outpatient Historical [facility] Joseph Corley MD [address] [place] [address] CORONARY ATHEROSCLER UNSPEC VESSEL (Primary Dx); TOBACCO USE DISORDER Social History Tobacco Use Types Packs/Day Years Used Date Smoking Tobacco: Never Assessed Sex and Gender Information Value Date Recorded Sex Assigned at Not on file 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
--- OUTSIDE RECORDS SUMMARY | 2025-07-17 21:01 | XMS_ITS | Encounter Summary ---
Author Organization [employer] [facility] Address [address] [place] [address] Care Team Providers Care Resident Service Coordinator Name Role Phone Unavailable Primary Care Provider Renee e Encounter Details Date Type Department Care Team (Latest Contact Info) Description 10/04/2002 Outpatient Historical [facility] Joseph Corley MD [address] [place] [address] DIS IRON METABOLISM (Primary Dx) Social History Tobacco Use Types Packs/Day Years Used Date Smoking Tobacco: Never Assessed Sex and Gender Information Value Date Recorded Sex Assigned at Not on file Legal Sex Male 4:52 AM 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
--- OUTSIDE RECORDS SUMMARY | 2025-07-17 21:01 | XMS_ITS | Encounter Summary ---
Author Organization [email or web address] [facility] Address [address] [place] [address] Care Team Providers Care Lump Receiver Name Role Phone Unavailable Primary Care Provider Renee e Encounter Details Date Type Department Care Team (Latest Contact Info) Description 05/15/2003 Outpatient Historical [facility] Joseph Corley MD [address] [place] [address] CHRONIC AIRWAY OBSTRUCTION NEC (CMS/HCC) (Primary Dx); DIS IRON METABOLISM Social History Tobacco Use Types Packs/Day Years Used Date Smoking Tobacco: Never Assessed Sex and Gender Information Value Date Recorded Sex Assigned at Not on file 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
--- OUTSIDE RECORDS SUMMARY | 2025-07-17 21:01 | XMS_ITS | Encounter Summary ---
Author Organization [employer] [facility] Address [address] [place] [address] Care Team Providers Care Electrical Assemblies Supervisor Name Role Phone Unavailable Primary Care Provider Unavailwilliam e Encounter Details Date Type Department Care Team (Latest Contact Info) Description 11/06/2003 Outpatient Historical [facility] Joseph Corley MD [address] [place] [address] ABNORMAL CARDIOVASC STUDY NEC (Primary Dx); DIS IRON METABOLISM; JOINT PAIN-SHLDER Social History Tobacco Use Types Packs/Day Years Used Date Smoking Tobacco: Never Assessed Sex and Gender Information Value Date Recorded Sex Assigned at Not on file Legal Sex Male 4:52 AM 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
--- OUTSIDE RECORDS SUMMARY | 2025-07-17 21:01 | XMS_ITS | Encounter Summary ---
Author Organization [email or web address] [facility] Address [address] [place] [address] Care Team Providers Care End Trimmer Name Role Phone Unavailable Primary Care Provider Renee e Encounter Details Date Type Department Care Team (Latest Contact Info) Description 10/15/2002 Outpatient Historical [facility] Joseph Corley MD [address] [place] [address] DIS IRON METABOLISM (Primary Dx); ABNORMAL LIVER FUNCTION STUDY Social History Tobacco Use Types Packs/Day Years Used Date Smoking Tobacco: Never Assessed Sex and Gender Information Value Date Recorded Sex Assigned at Not on file 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
--- OUTSIDE RECORDS SUMMARY | 2025-07-17 21:01 | XMS_ITS | Clinical Summary ---
Author Organization [facility] Address [address] 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
--- OUTSIDE RECORDS SUMMARY | 2025-07-17 21:01 | XMS_ITS | Encounter Summary ---
Author Organization [employer] [facility] Address [address] [place] [address] Care Team Providers Care Tc Operator Name Role Phone Unavailable Primary Care Provider Renee e Encounter Details Date Type Department Care Team (Latest Contact Info) Description 08/13/2002 Outpatient Historical [facility] Joseph Corley MD [address] [place] [address] CHRONIC AIRWAY OBSTRUCTION NEC (CMS/HCC) (Primary Dx); TOBACCO USE DISORDER; CORONARY ATHEROSCLER UNSPEC VESSEL Social History Tobacco Use Types Packs/Day Years Used Date Smoking Tobacco: Never Assessed Sex and Gender Information Value Date Recorded Sex Assigned at Not on file 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
--- OUTSIDE RECORDS SUMMARY | 2025-07-17 21:01 | XMS_ITS | Encounter Summary ---
Author Organization [employer] [facility] Address [address] [place] [address] Care Team Providers Care Child Care Worker Name Role Phone Unavailable Primary Care Provider Renee e Encounter Details Date Type Department Care Team (Latest Contact Info) Description 06/26/2003 Outpatient Historical [facility] Joseph Corley MD [address] [place] [address] CHRONIC AIRWAY OBSTRUCTION NEC (CMS/HCC) (Primary Dx); TOBACCO USE DISORDER Social History Tobacco Use Types Packs/Day Years Used Date Smoking Tobacco: Never Assessed Sex and Gender Information Value Date Recorded Sex Assigned at Not on file Legal Sex Male 4:52 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
--- OUTSIDE RECORDS SUMMARY | 2025-07-17 21:01 | XMS_ITS | Encounter Summary ---
Author Organization [facility] Address [address] [place] [address] Care Team Providers Care Sales Floor Team Member Name Role Phone Unavailable Primary Care Provider Unavailwilliam e Encounter Details Date Type Department Care Team (Latest Contact Info) Description 08/05/2005 Outpatient Historical [facility] Gen Spec Surg [place] [address] [place] [address] Juan C Prado MD NO ADDRESS ON FILE CHRONIC CHOLECYSTITIS NEC (Primary Dx); CHRONIC HEPATITIS NOS (CMS/HCC); SURGERY FOLLOWUP NOS Social History Tobacco Use Types Packs/Day Years Used Date Smoking Tobacco: Never Assessed Sex and Gender Information Value Date Recorded Sex Assigned at Not on file Legal Sex Male 4:52 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
--- OUTSIDE RECORDS SUMMARY | 2025-07-17 21:01 | XMS_ITS | Encounter Summary ---
Author Organization [facility] Address [address] [place] [address] Care Team Providers Care Workday Manager Name Role Phone Unavailable Primary Care Provider Unavailwilliam e Encounter Details Date Type Department Care Team (Latest Contact Info) Description 08/05/2005 Outpatient Historical [facility] Gastroenterology- [place] [address] [place] [address] Quoc Bledsoe MD [facility] [address] [facility] [address] [place] [phone] VIR HEP NEC W/O COMA W HEP C CHRON (CMS/HCC) (Primary Dx); ESOPHAGEAL REFLUX Social History Tobacco Use Types Packs/Day Years Used Date Smoking Tobacco: Never Assessed Sex and Gender Information Value Date Recorded Sex Assigned at Not on file Legal Sex Male 4:52 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
--- OUTSIDE RECORDS SUMMARY | 2025-07-17 21:01 | XMS_ITS | Encounter Summary ---
Author Organization [employer] [facility] Address [address] [place] [address] Care Team Providers Care Core Java Software Engineer Name Role Phone Unavailable Primary Care Provider Unavailwilliam e Encounter Details Date Type Department Care Team (Latest Contact Info) Description 09/24/2003 Outpatient Historical [facility] Joseph Corley MD [address] [place] [address] CHEST PAIN NEC (Primary Dx); CHRONIC AIRWAY OBSTRUCTION NEC (CMS/HCC); DIS IRON METABOLISM Social History Tobacco Use Types Packs/Day Years Used Date Smoking Tobacco: Never Assessed Sex and Gender Information Value Date Recorded Sex Assigned at Not on file 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
--- OUTSIDE RECORDS SUMMARY | 2025-07-17 21:01 | XMS_ITS | Encounter Summary ---
Author Organization [employer] [facility] Address [address] [place] [address] Care Team Providers Care Overnight Houseperson Name Role Phone Unavailable Primary Care Provider Unavailwilliam e Encounter Details Date Type Department Care Team (Latest Contact Info) Description 04/03/2003 Outpatient Historical [facility] Joseph Corley MD [address] [place] [address] OBSTR CHR BRONCHITIS W AC EXACERB (CMS/HCC) (Primary Dx); TOBACCO USE DISORDER Social History Tobacco Use Types Packs/Day Years Used Date Smoking Tobacco: Never Assessed Sex and Gender Information Value Date Recorded Sex Assigned at Not on file Legal Sex Male 4:52 AM 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
--- OUTSIDE RECORDS SUMMARY | 2025-07-17 21:01 | XMS_ITS | Encounter Summary ---
Author Organization [email or web address] [facility] Address [address] [place] [address] Care Team Providers Care Wallpaper Printer Helper Name Role Phone Unavailable Primary Care Provider Unavailwilliam e Encounter Details Date Type Department Care Team (Latest Contact Info) Description 02/13/2003 Outpatient Historical [facility] Joseph Corley MD [address] [place] [address] DIS IRON METABOLISM (Primary Dx); CHRONIC AIRWAY OBSTRUCTION NEC (CMS/HCC); TOBACCO USE DISORDER Social History Tobacco Use Types Packs/Day Years Used Date Smoking Tobacco: Never Assessed Sex and Gender Information Value Date Recorded Sex Assigned at Not on file 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
--- OUTSIDE RECORDS SUMMARY | 2025-07-17 21:01 | XMS_ITS | Encounter Summary ---
Author Organization [facility] Address [address] [place] [address] Care Team Providers Care Farm Mortgage Agent Name Role Phone Unavailable Primary Care Provider Unavailwilliam e Encounter Details Date Type Department Care Team (Latest Contact Info) Description 08/29/2001 Outpatient Historical [facility] Oral and Maxillo Surgery- [address] [place] [address] Driss Mahmood, DDS NO ADDRESS ON FILE UNSPEC DENTAL CARIES (Primary Dx) Social History Tobacco Use Types Packs/Day Years Used Date Smoking Tobacco: Never Assessed Sex and Gender Information Value Date Recorded Sex Assigned at Not on file Legal Sex Male 4:52 AM 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
--- OUTSIDE RECORDS SUMMARY | 2025-07-17 21:01 | XMS_ITS | Encounter Summary ---
Author Organization [employer] [facility] Address [address] [place] [address] Care Team Providers Care Mat Puncher Name Role Phone Unavailable Primary Care Provider Renee e Encounter Details Date Type Department Care Team (Latest Contact Info) Description 10/26/2002 Outpatient Historical [facility] Joseph Corley MD [address] [place] [address] DIS IRON METABOLISM (Primary Dx); LUMBAGO Social History Tobacco Use Types Packs/Day Years Used Date Smoking Tobacco: Never Assessed Sex and Gender Information Value Date Recorded Sex Assigned at Not on file Legal Sex Male 4:52 AM GOSPEL SINGER Gender Identity Not on file Sexual Orientation Not on file documented as of this encounter Plan of Treatment Not on file documented as of this encounter Visit Diagnoses Diagnosis Disorders of iron metabolism- Primary Lumbago documented in this encounter
--- OUTSIDE RECORDS SUMMARY | 2025-07-17 21:01 | XMS_ITS | Encounter Summary ---
Author Organization [facility] Address [address] [place] [address] Care Team Providers Care Instructor Product Inspection Name Role Phone Unavailable Primary Care Provider Unavailabl e Encounter Details Date Type Department Care Team (Late st Contact Info) Description 01/17/2006 Emergency [facility] Emergency Department [address] [place] [address] Marina Diego FNP NO ADDRESS ON FILE Issue of Repeat Prescriptions (Primary Dx) Social History Tobacco Use Types Packs/Day Years Used Date Smoking Tobacco: Never Assessed Sex and Gender Information Value Date Recorded Sex Assigned at Not on file Legal Sex Male 4:52 AM LAN ENGINEER Gender Identity Not on file Sexual Orientation Not on file documented as of this encounter Plan of Treatment Not on file documented as of this encounter Visit Diagnoses Diagnosis Issue of repeat prescriptions- Primary documented in this encounter
--- OUTSIDE RECORDS SUMMARY | 2025-07-17 21:01 | XMS_ITS | Encounter Summary ---
Author Organization [employer] [facility] Address [address] [place] [address] Care Team Providers Care Bank Consultant Name Role Phone Unavailable Primary Care Provider Renee e Encounter Details Date Type Department Care Team (Latest Contact Info) Description 10/15/2002 Outpatient Historical [facility] Joseph Corley MD [address] [place] [address] DIS IRON METABOLISM (Primary Dx) Social History Tobacco Use Types Packs/Day Years Used Date Smoking Tobacco: Never Assessed Sex and Gender Information Value Date Recorded Sex Assigned at Not on file Legal Sex Male 4:52 AM CUSTOMS DIRECTOR Gender Identity Not on file Sexual Orientation Not on file documented as of this encounter Plan of Treatment Not on file documented as of this encounter Visit Diagnoses Diagnosis Disorders of iron metabolism- Primary documented in this encounter
--- OUTSIDE RECORDS SUMMARY | 2025-07-17 21:02 | XMS_ITS | Encounter Summary ---
Author Organization [facility] Address [address] [place] [address] Care Team Providers Care Building Tech Name Role Phone Unavailable Primary Care Provider Renee e Encounter Details Date Type Department Care Team (Latest Contact Info) Description 06/15/2005 Outpatient Historical [facility] Imaging Services-[facility]manuel Romero [facility] [address] [place] [phone] Ronnie Slater MD NO ADDRESS ON FILE CHEST SWELLING/MASS/LUMP (Primary Dx) Social History Tobacco Use Types Packs/Day Years Used Date Smoking Tobacco: Never Assessed Sex and Gender Information Value Date Recorded Sex Assigned at Not on file Legal Sex Male 4:52 AM LIFESTYLE DIRECTOR Gender Identity Not on file Sexual Orientation Not on file documented as of this encounter Plan of Treatment Not on file documented as of this encounter Visit Diagnoses Diagnosis Swelling, mass, or lump in chest- Primary documented in this encounter
--- OUTSIDE RECORDS SUMMARY | 2025-07-17 21:02 | XMS_ITS | Encounter Summary ---
Author Organization [employer] [facility] Address [address] [place] [address] Care Team Providers Care Water Treatment Specialist Name Role Phone Unavailable Primary Care Provider Unavailwilliam e Encounter Details Date Type Department Care Team (Late st Contact Info) Description 06/09/2004 Outpatient Historical [facility] FY06 Non-Staff, Physician NO ADDRESS ON FILE Social History Tobacco Use Types Packs/Day Years Used Date Smoking Tobacco: Never Assessed Sex and Gender Information Value Date Recorded Sex Assigned at Not on file Legal Sex Male 4:52 AM PUBLIC HEALTH INSPECTOR Gender Identity Not on file Sexual Orientation Not on file documented as of this encounter Plan of Treatment Not on file documented as of this encounter Visit Diagnoses Not on filedocumented in this encounter
--- OUTSIDE RECORDS SUMMARY | 2025-07-17 21:02 | XMS_ITS | Encounter Summary ---
Author Organization [facility] Address [address] [place] [address] Care Team Providers Care Telecommunication Tower Technician Name Role Phone Unavailable Primary Care Provider Renee e Encounter Details Date Type Department Care Team (Latest Contact Info) Description 12/03/2003 Outpatient Historical [facility] Cardiology- [place] [address] [place] [address] Kendrick Snow MD NO ADDRESS ON FILE ANGINA PECTORIS NEC/NOS (Primary Dx); CHRONIC AIRWAY OBSTRUCTION NEC (CMS/HCC); ABNORMAL CARDIOVASC STUDY NOS Social History Tobacco Use Types Packs/Day Years Used Date Smoking Tobacco: Never Assessed Sex and Gender Information Value Date Recorded Sex Assigned at Not on file Legal Sex Male 4:52 AM MILL HAND PLATE MILL Gender Identity Not on file Sexual Orientation Not on file documented as of this encounter Plan of Treatment Not on file documented as of this encounter Visit Diagnoses Diagnosis Other and unspecified angina pectoris- Primary Chronic airway obstruction, not elsewhere classified (CMS/HCC) Chronic airway obstruction, not elsewhere classified Nonspecific abnormal unspecified cardiovascular function study documented in this encounter
--- OUTSIDE RECORDS SUMMARY | 2025-07-17 21:02 | XMS_ITS | Encounter Summary ---
Author Organization [facility] Address [address] [place] [address] Care Team Providers Care Wet Process Technician Name Role Phone Unavailable Primary Care Provider Unavailwilliam e Encounter Details Date Type Department Care Team (Latest Contact Info) Description 01/06/2005 Outpatient Historical [facility] Gastroenterology- [place] [address] [facility] [address] [place] [address] Quoc Bledsoe MD Counts include [facility] beds at [facility] [address] [facility] [address] [place] [phone] ABNORMAL LIVER FUNCTION STUDY (Primary Dx); GB cholesterolosis; HEPATOMEGALY Social History Tobacco Use Types Packs/Day Years Used Date Smoking Tobacco: Never Assessed Sex and Gender Information Value Date Recorded Sex Assigned at Not on file Legal Sex Male 4:52 AM THREAD SEPARATOR Gender Identity Not on file Sexual Orientation Not on file documented as of this encounter Plan of Treatment Not on file documented as of this encounter Visit Diagnoses Diagnosis Nonspecific abnormal results of liver function study- Primary GB cholesterolosis Cholesterolosis of gallbladder Hepatomegaly documented in this encounter
--- OUTSIDE RECORDS SUMMARY | 2025-07-17 21:02 | XMS_ITS | Encounter Summary ---
Author Organization [facility] Address [address] [place] [address] Care Team Providers Care Compliance Monitor Name Role Phone Unavailable Primary Care Provider Unavailwilliam e Encounter Details Date Type Department Care Team (Latest Contact Info) Description 02/03/2005 Outpatient Historical [facility] Gastroenterology- [place] [address] [facility] [address] [place] [address] Quoc Bledsoe MD [facility] [address] [facility] [place] [address] ABNORMAL FINDINGS-GI TRACT (Primary Dx); ESOPHAGEAL REFLUX Social History Tobacco Use Types Packs/Day Years Used Date Smoking Tobacco: Never Assessed Sex and Gender Information Value Date Recorded Sex Assigned at Not on file Legal Sex Male 4:52 AM WINDOW MAKER Gender Identity Not on file Sexual Orientation Not on file documented as of this encounter Plan of Treatment Not on file documented as of this encounter Visit Diagnoses Diagnosis Nonspecific (abnormal) findings on radiological and other examination of gastrointestinal tract- Primary Esophageal reflux documented in this encounter
--- OUTSIDE RECORDS SUMMARY | 2025-07-17 21:02 | XMS_ITS | Encounter Summary ---
Author Organization [facility] Address [address] [place] [address] Care Team Providers Care Band Saw Marker Name Role Phone Unavailable Primary Care Provider Renee e Encounter Details Date Type Department Care Team (Latest Contact Info) Description 06/15/2005 Outpatient Historical [facility] Pulmonology-[facility] [employer] [address] [place] [phone] Ronnie Slater MD NO ADDRESS ON FILE CHEST SWELLING/MASS/LUMP (Primary Dx) Social History Tobacco Use Types Packs/Day Years Used Date Smoking Tobacco: Never Assessed Sex and Gender Information Value Date Recorded Sex Assigned at Not on file Legal Sex Male 4:52 AM POWERTRAIN ENGINEER Gender Identity Not on file Sexual Orientation Not on file documented as of this encounter Plan of Treatment Not on file documented as of this encounter Visit Diagnoses Diagnosis Swelling, mass, or lump in chest- Primary documented in this encounter
--- OUTSIDE RECORDS SUMMARY | 2025-07-17 21:02 | XMS_ITS | Encounter Summary ---
Author Organization [facility] Address [address] [place] [address] Care Team Providers Care Campus Director Name Role Phone Unavailable Primary Care Provider Unavailabl e Encounter Details Date Type Department Care Team (Latest Contact Info) Description 01/27/[address] [facility] Cardiac Radio Time Buyer [address] [place] [address] Kendrick Snow MD NO ADDRESS ON FILE ANGINA PECTORIS NEC/NOS (Primary Dx) Social History Tobacco Use Types Packs/Day Years Used Date Smoking Tobacco: Never Assessed Sex and Gender Information Value Date Recorded Sex Assigned at Not on file Legal Sex Male 4:52 AM CONFERENCE DIRECTOR Gender Identity Not on file Sexual Orientation Not on file documented as of this encounter Plan of Treatment Not on file documented as of this encounter Visit Diagnoses Diagnosis Other and unspecified angina pectoris- Primary documented in this encounter
--- OUTSIDE RECORDS SUMMARY | 2025-07-17 21:02 | XMS_ITS | Encounter Summary ---
Author Organization [facility] Address [address] [place] [address] Care Team Providers Care Pipeline Executive Name Role Phone Unavailable Primary Care Provider Unavailabl e Encounter Details Date Type Department Care Team (Latest Contact Info) Description 07/29/2005 Outpatient Historical [facility] Operating Room [address] [place] [address] Juan C Prado MD NO ADDRESS ON FILE CHRONIC CHOLECYSTITIS NEC (Primary Dx) Social History Tobacco Use Types Packs/Day Years Used Date Smoking Tobacco: Never Assessed Sex and Gender Information Value Date Recorded Sex Assigned at Not on file Legal Sex Male 4:52 AM COLLECTION CORRESPONDENT Gender Identity Not on file Sexual Orientation Not on file documented as of this encounter Plan of Treatment Not on file documented as of this encounter Procedures Procedure Name Priority Date/Time Associated Diagnosis Comments CBC WITH DIFFERENTIAL Routine 07/29/2005 6:17 AM COLLECTION CORRESPONDENT PROTIME-INR Routine 07/29/2005 6:17 AM COLLECTION CORRESPONDENT LIPID PANEL Routine 07/29/2005 6:17 AM COLLECTION CORRESPONDENT COMPREHENSIVE METABOLIC PANEL Routine 07/29/2005 6:17 AM COLLECTION CORRESPONDENT documented in this encounter Results * PROTIME-INR (07/29/2005 6:17 AM COLLECTION CORRESPONDENT) PROTIME 12.9 12.6 - 14.9 Secs INTERFACE SYSTEM Comment: As of 05 note change in normal range. INR 0.9 INTERFACE SYSTEM Comment: Expected Values for INR: DVT/PE Goal INR 2.5; range 2.0 - 3.0 Valve Replacement Tissue Goal INR 2.5; range 2.0 - 3.0 Mechanical Goal INR 3.0; range 2.5 - 3.5 POST-[place] Goal INR 2.5; range 2.0 - 3.0 or Goal 3.0; range 2.5 - 3.5 Atrial Fibrillation Goal INR 2.5; range 2.0 - 3.0 Ischemic Stroke Goal INR 2.5; range 2.0 - 3.0 For additional information see Guidelines for Anticoagulation available from the pharmacy [facility]. 07/29/2005 6:17 AM COLLECTION CORRESPONDENT Juan C Prado MD HEMATOLOGY ORDERABLES Final Re sult Performing Organization Address [facility] de Phone Number INTERFACE SYSTEM Refer to clinic/hospital department * (ABNORMAL) LIPID PANEL (07/29/2005 6:17 AM COLLECTION CORRESPONDENT) CALCULATED TOTAL CHOLESTEROL TO HDL RATIO 2.56(L) 3.43 - 4.97 INTERFACE SYSTEM CHOLESTEROL 128 75 - 200 mg/dL INTERFACE SYSTEM HDL 50 40 - 60 mg/dL INTERFACE SYSTEM LDL CALCULATED 58 0 - 130 mg/dL INTERFACE SYSTEM TRIGLYCERIDE 100 0 - 200 mg/dL INTERFACE SYSTEM 07/29/2005 6:17 AM COLLECTION CORRESPONDENT Juan C Prado MD CHEMISTRY ORDERABLES Final Res ult Performing Organization Address [facility] de Phone Number INTERFACE SYSTEM Refer to clinic/hospital department * COMPREHENSIVE METABOLIC PANEL (07/29/2005 6:17 AM COLLECTION CORRESPONDENT) GLUCOSE 103 70 - 110 mg/dL INTERFACE SYSTEM BUN 17 9 - 20 mg/dL INTERFACE SYSTEM CREATININE 0.9 0.7 - 1.5 mg/dL INTERFACE SYSTEM SODIUM 142 136 - 145 mEq/L INTERFACE SYSTEM POTASSIUM 3.9 3.5 - 5.0 mEq/L INTERFACE SYSTEM CO2 24 22 - 32 mmol/l INTERFACE SYSTEM CHLORIDE 106 95 - 110 mEq/L INTERFACE SYSTEM CALCIUM 9.2 8.4 - 10.5 mg/dL INTERFACE SYSTEM ALKALINE PHOSPHATASE 92 38 - 126 IU/L INTERFACE SYSTEM TOTAL PROTEIN 7.8 6.3 - 8.2 g/dL INTERFACE SYSTEM ALBUMIN 4.4 3.5 - 5.0 g/dL INTERFACE SYSTEM AST 46 17 - 59 IU/L INTERFACE SYSTEM ALT 52 21 - 72 IU/L INTERFACE SYSTEM BILIRUBIN TOTAL 0.2 0.2 - 1.4 mg/dL INTERFACE SYSTEM GLOBULIN (CALC) 3.4 2.4 - 3.9 g/dL INTERFACE SYSTEM ANION GAP 16 9 - 20 mEq/L INTERFACE SYSTEM ALBUMIN/GLOBULIN RATIO 1.3 1.0 - 2.3 INTERFACE SYSTEM OSMOLALITY, CALCULATED 293 275 - 295 mOsm/Kg INTERFACE SYSTEM 07/29/2005 6:17 AM COLLECTION CORRESPONDENT us Juan C Prado MD CHEMISTRY ORDERABLES Final Res ult INTERFACE SYSTEM Refer to clinic/hospital department * (ABNORMAL) CBC WITH DIFFERENTIAL (07/29/2005 6:17 AM COLLECTION CORRESPONDENT) WBC 7.3 4.8 - 10.8 K/ul INTERFACE SYSTEM RBC 5.19 4.60 - 6.20 Mil/ul INTERFACE SYSTEM HEMOGLOBIN 15.9 14.0 - 18.0 g/dL INTERFACE SYSTEM HEMATOCRIT 44.1 41.0 - 53.0 % INTERFACE SYSTEM MCV 85.0 84.0 - 103.0 Fl INTERFACE SYSTEM MCH 30.6 27.0 - 34.0 pg INTERFACE SYSTEM MCHC 36.1(H) 30.0 - 35.0 g/dL INTERFACE SYSTEM RDW 12.7 11.0 - 14.5 % INTERFACE SYSTEM PLATELETS 243 140 - 440 K/ul INTERFACE SYSTEM MPV 9.3 8.9 - 12.8 Fl INTERFACE SYSTEM NEUTROPHILS 55.6 42.2 - 75.2 % INTERFACE SYSTEM LYMPHOCYTES 31.9 24.0 - 44.0 % INTERFACE SYSTEM MONOCYTES 8.7 2.0 - 10.0 % INTERFACE SYSTEM EOSINOPHILS 3.3 0.0 - 7.0 % INTERFACE SYSTEM BASOPHILS 0.5 0.0 - 1.0 % INTERFACE SYSTEM NEUTROPHIL ABSOLUTE 4.1 2.0 - 8.0 K/uL INTERFACE SYSTEM LYMPHOCYTE ABSOLUTE 2.3 1.2 - 4.0 K/ul INTERFACE SYSTEM MONOCYTE ABSOLUTE 0.6 0.1 - 0.6 K/ul INTERFACE SYSTEM EOSINOPHIL ABSOLUTE 0.2 0.0 - 0.7 K/ul INTERFACE SYSTEM BASOPHILS ABSOLUTE 0.0 0.0 - 0.2 K/ul INTERFACE SYSTEM 07/29/2005 6:17 AM COLLECTION CORRESPONDENT us Juan C Prado MD HEMATOLOGY ORDERABLES Final Re sult INTERFACE SYSTEM Refer to clinic/hospital department documented in this encounter Visit Diagnoses Diagnosis Chronic cholecystitis- Primary documented in this encounter
--- OUTSIDE RECORDS SUMMARY | 2025-07-17 21:02 | XMS_ITS | Encounter Summary ---
Author Organization [facility] Address [address] [place] [address] Care Team Providers Care Claims Counsel Name Role Phone Unavailable Primary Care Provider Unavailwilliam e Encounter Details Date Type Department Care Team (Late st Contact Info) Description 07/22/2004 Outpatient Historical [facility] [place] [address] [facility] [address] [place] [address] Social History Tobacco Use Types Packs/Day Years Used Date Smoking Tobacco: Never Assessed Sex and Gender Information Value Date Recorded Sex Assigned at Not on file 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 Gender Identity Not on file Sexual Orientation Not on file documented as of this encounter Plan of Treatment Not on file documented as of this encounter Procedures Procedure Name Priority Date/Time Associated Diagnosis Comments FERRITIN Routine 07/22/2004 10:40 AM SATELLITE SPECIALIST documented in this encounter Results * FERRITIN (07/22/2004 10:40 AM SATELLITE SPECIALIST) FERRITIN 223.0 17.9 - 464.0 ng/mL INTERFACE SYSTEM 07/22/2004 10:4 0 AM SATELLITE SPECIALIST us Kelsey Montalvo MD CHEMISTRY ORDERABLES Final Resul t INTERFACE SYSTEM Refer to clinic/hospital department documented in this encounter Visit Diagnoses Not on filedocumented in this encounter
--- OUTSIDE RECORDS SUMMARY | 2025-07-17 21:02 | XMS_ITS | Encounter Summary ---
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
--- OUTSIDE RECORDS SUMMARY | 2025-07-17 21:02 | XMS_ITS | Encounter Summary ---
Author Organization [facility] Address [address] [place] [address] Care Team Providers Care Infusion Rn Name Role Phone Unavailable Primary Care Provider Unavailabl e Encounter Details Date Type Department Care Team (Latest Contact Info) Description 02/03/[address] [facility] [address] 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
--- OUTSIDE RECORDS SUMMARY | 2025-07-17 21:02 | XMS_ITS | Encounter Summary ---
Author Organization [facility] Address [address] [place] [address] Care Team Providers Care Blending Coordinator Name Role Phone Unavailable Primary Care Provider Unavailwilliam e Encounter Details Date Type Department Care Team (Latest Contact Info) Description 03/08/2005 Outpatient Historical [facility] [place] [address] [facility] [address] [place] [address] Juan C Prado MD NO ADDRESS ON FILE GB cholesterolosis (Primary Dx) Social History Tobacco Use Types Packs/Day Years Used Date Smoking Tobacco: Never Assessed Sex and Gender Information Value Date Recorded Sex Assigned at Not on file 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
--- OUTSIDE RECORDS SUMMARY | 2025-07-17 21:02 | XMS_ITS | Encounter Summary ---
Author Organization [facility] Address [address] [place] [address] Care Team Providers Care Certification Technician Name Role Phone Unavailable Primary Care Provider Unavailwilliam e Encounter Details Date Type Department Care Team (Latest Contact Info) Description 03/08/2005 Outpatient Historical [facility] [address] [facility] [address] [place] [address] Qouc Bledsoe MD [facility] [address] [place] [address] ESOPHAGEAL REFLUX (Primary Dx); VIR HEP NEC W/O COMA W HEP C CHRON (CMS/HCC); DIS IRON METABOLISM Social History Tobacco Use Types Packs/Day Years Used Date Smoking Tobacco: Never Assessed Sex and Gender Information Value Date Recorded Sex Assigned at Not on file 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
--- OUTSIDE RECORDS SUMMARY | 2025-07-17 21:02 | XMS_ITS | Patient Health Record ---
Author Organization [facility] Address [address] [place] [address] Care Team Providers Care Delivery Engineer Name Role Phone Baltazar Simon DO Primary Care Provider Unavail yves DanolaurencholoPatrick Unavailable [phone] Allergies No Known Allergies Reason For Referral No Information Medications Medication SIG (Take, Route, Frequency, Duration) Notes Start Date End Date Status Albuterol Active Oxygen - Home Use Ac tive Advair HFA Active tiotropium 0.018 MG/ACTUAT Inhalant Powder [Spiriva] tiotropium 0.018 MG/ACTUAT Inhalant Powder [Spiriva] 01/10/2019 Active Immunizations Vaccine Route Administration Date Status Comme nts Influenza (whole), CPT 06512 Inactive Unknown 04/18/2017 Administered Influenza (whole), CPT 17162 Inactive Unknown 05/04/2017 Administered Influenza (whole), CPT 69298 Inactive Unknown 05/18/2018 Administered Social History Tobacco Use: Social History Observation Description Date Details (start date - stop date) Former Smoker NA - NA Social History Tobacco Use: Social Info Question Answer Notes xTobacco Use/Smoking Are you a former smoker How long has it been since you last smoked? > 10 years Additional Details Category Social Info Options Details zzMigrated Social History Migrated Social History Smoking Status:Ex-smoker (finding) Problems Problem Type SNOMED Code ICD Code Onset Dates Problem Status W/U Status Risk Notes Problem Nocturia (056501966) Nocturia (R35.1) Active confirmed Problem Disorder of male genital organ (84660038) Other specified disorders of the male genital organs (N50.89) Active confirmed Problem Epididymal cyst (06087103) Epididymal cyst (N50.3) Active confirmed Plan Of Treatment No Information Insurance Providers Payer Name Payer Address Payer Phone Subscriber Number Group Number Insured Name Patient Relationship to Insured Coverage Start Date Coverage End Date [place] Replacement [address] [place] [address] [id number] PremaaleenaMilan castro Self - patient is the insured [place] Medicaid [address] [place] [address] [id number] Milan Winters Self - patient is the [...] urinary bladd er Surgical History Surgery Date(Month/Year) circumcision colonoscopy R inguinal hernia repair L inguinal hernia repair cholecystectomy
--- NOTE | 2025-07-17 21:09 | ECG_ITS ---
[facility]: 2025-07-17 Pat Name: Milan Winters Department: Room: Gender: Male Environmental Emergencies Planner: JOE : 1955 Requested By: Chelita Mendez Order Number: [id number] Ruperto MD: Otf Mcdonnell M.D. Measurements Intervals [place] Rate: 103 P: 68 DE: 164 QRS: 85 QRSD: 97 T: 82 QT: 336 QTc: 441 Interpretive Statements SINUS TACHYCARDIA T-WAVE ABNORMALITY, CONSIDER ANTERIOR ISCHEMIA [-0.1+ mV T-WAVE IN V3/V4] No previous ECG available for comparison Electronically Signed On 07-18-2025 15:35:52 HOME LIGHTING ADVISER by Otf Mcdonnell M.D. [email or web address]
--- NOTE | 2025-07-17 21:15 | ED_ITS ---
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 Patient stated this was sudden onset. He stated that he has a new space heater in his mobile home, and there is no gases with that, he got up too fast, to get to it, and started having shortness of breath associated with wheezing. Denies any chest pain. He only has chest tightness, inability to obtain his breath. He is speaking full sentences. Patient apparently told EMS that he would come to the ER if they would take him home. EMS gave Solu-Medrol 125 mg Associated symptoms: Reports chest congestion, dizziness, nausea, orthopnea and vomiting; Deny abdominal pain, chest pain, extremity pain, fever(s), hemoptysis, palpitations, polydipsia, polyuria or syncope Related Data Home Medications ?Medication ?Instructions ?Recorded ?Confirmed albuterol sulfate 90 mcg/actuation 2 puff inhalation Q 4H PRN 02/22/23 aerosol inhaler (Ventolin HFA) Shortness Of Breath Previous Rx's ?Medication ?Instructions ?Recorded Portable Oxygen Concentrator #1 ea 11/18/22 fluticasone 500 mcg-salmeterol 50 1 inh inhalation BID 90 days #180 11/24/22 mcg/dose blistr powdr for ea inhalation (Advair Diskus) walker #1 ea 06/14/23 tiotropium bromide 18 mcg capsule See Rx Instructions .Route 08/10/23 with inhalation device .COMPLEX #90 caps doxycycline hyclate 100 mg capsule 100 mg PO BID 10 da ys #20 caps 07/17/25 methylprednisolone 4 mg tablets in See Rx Instructions PO .COMPLEX 07/17/25 a dose pack (Medrol (Rl)) #21 ea nirmatrelvir 300 mg (150 mg See Rx Instructions PO .CO MPLEX 07/17/25 x2)-ritonavir 100 mg tablet,dose #30 ea pack (Paxlovid) Allergies Allergy/AdvReac Type Severity Reaction Status Date / Time No Known Allergies Allergy Verified 02/22/23 12:52 Review of Systems 2 General: Reports: 10 or more systems reviewed and unremarkable except in HPI and below Const: Reports: fatigue; Denies: fever(s), chills, night sweats or daytime sleepiness Eyes: Denies: change in vision or blurry vision ENMT: Denies: throat pain, odynophagia, hoarseness, nasal discharge, post nasal drip or sinus pain Card: Reports: dyspnea on exertion and orthopnea; Denies: chest pain, palpitations, irregular heart rhythm, edema, swelling of feet/ankles, syncope or pre-syncope Resp: Reports: dyspnea, productive cough, wheezing and chest congestion; Denies: non-productive cough, stridor, pain on inspiration, change in phlegm color or hemoptysis GI: Reports: nausea, vomiting and diarrhea; Denies: abdominal pain : Denies: flank pain, difficulty urinating or dysuria Musc: Denies: neck pain, back pain, extremity pain or joint pain Neuro: Reports: numbness in extremities, weakness in extremities and dizziness; Denies: headache(s), lack of coordination or difficulty walking Psych: Reports: anxiety; Denies: depression Endo: Denies: polyuria, polydipsia, tired all the time or excessive sweating Dash/Lymph: Reports: easy bruising; Denies: easy bleeding All/Imm: Denies: urticaria, throat swelling, tongue swelling, facial swelling, acute wheezing, itchy eyes or food intolerance PFSH ED 2 PFSH: Medical History (Updated 07/17/25 @ 23:00 by BRYAN East) Otitis media History of psychosis Depression Degenerative arthritis History of hepatitis C treated with a course of ribavirin and pegylated interferon between October of 2005 and December of 2006 Hemochromatosis, hereditary COPD (chronic obstructive pulmonary disease) Surgical History Status post right inguinal hernia repair (02/20/20) Hx of cholecystectomy H/O left inguinal hernia repair H/O circumcision H/O colonoscopy 2015 Family History Mother Cancer stomach Denies family history of Diabetes CAD (coronary artery disease) Anesthesia complication Bleeding disorder Social History Smoking and tobacco/nicotine status: former use of tobacco/nicotine (smoked off and on) Quit status (tobacco/nicotine): has quit using Year quit tobacco: 2001 [id number] Second hand smoke exposure: Yes Alcohol intake: current Alcohol intake frequency: holidays/special occasions only Substance/Drug Use: current Substance/Drug use frequency: daily Lives independently: Yes Household members: none Marital status: Single service: No Current occupational status: disabled Pets and animals: Yes Do you think of yourself as: Straight/Heterosexual Current gender identity: Male Physical Exam 2 Const: COMMON NORMALS: no acute distress and patient oriented x3 GENERAL APPEARANCE: cooperative HENMT: COMMON NORMALS: normocephalic and atraumatic HEAD & SCALP: n ormocephalic and atraumatic Eye: GENERAL EYE: appearance normal, both eyes and all related structures Neck/C-Spine: COMMON NORMALS: full ROM and no lymphadenopathy Resp: COMMON NORMALS: normal respiratory effort EFFORT & INSPECTION: Yes able to speak in complete sentences and No labored AUSCULTATION: wheezes expiratory wheezes (Left lung throughout, right lower lobe) Cardio: COMMON NORMALS: regular rate and regular rhythm RATE: regular rate RHYTHM: regular rhythm GI: COMMON NORMALS: Soft to palpation AUSCULTATION: Yes normoactive bowel sounds PALPATION: Yes Soft to palpation : COMMON NORMALS: Yes no CVA tenderness BLADDER/KIDNEY EXAM: Yes no CVA tenderness Back/Pelvis: COMMON NORMALS: no CVA tenderness and thoracic and lumbar spine normal to inspection THORACIC SPINE/UPPER BACK: Yes normal to inspection, Yes thoracic ROM normal and Yes ROM limited Extremity: COMMON NORMALS: normal to inspection, full ROM and capillary refill normal Neuro: COMMON NORMALS: patient oriented x3 SPEECH: speech normal Psych: COMMON NORMALS: Normal thought process present ATTITUDE: Yes calm MOOD & AFFECT: No anxious THOUGHT PROCESS: Normal thought process present Skin: COMMON NORMALS: no jaundice Course 2 Reevaluation(s): Reevaluation #1: Improved after steroids per patient and aerosol treatment. Vital Signs: Vital signs: Vital Signs Temperature 98.8 F 07/17/25 20:56 Pulse Rate 80 07/17/25 23:43 Respiratory Rate 18 07/17/25 20:56 Blood Pressure 114/71 07/17/25 23:43 Pulse Oximetry 95 07/17/25 23:43 Oxygen Delivery Me thod Nasal Cannula 07/17/25 21:27 Oxygen Flow Rate 2 07/17/25 21:27 MDM - SOB/Dyspnea Medical Decision Making Patient is a 70-year-old male that reports to the emergency room due to shortness of breath. Initial oxygen saturation is 91% on 2 L. He does have some tachypnea, although he is able to speak full sentences. EKG shows a rate of 103, sinus tachycardia, without ST segment elevation. Patient appears to need a workup for his acute on chronic onset of shortness of breath. However, patient became quite upset when he was not guaranteed a ride home if he is not admitted. Unsure of the promises prior to the ED, although I am unavailable to provide social support that I am aware of as I discussed with patient. Will initially work patient up including a D-dimer given his slight tachycardia, and shortness of breath. Patient will receive steroids, and will reevaluate this issue After full evaluation on the patient, he decided not to sign consent for treatment due to concern of not having a ride home. I went back in the room and discussed with patient we are unable to move forward with any testing. Patient then agreed to sign consent. Patient's COVID was positive. D-dimer was negative. Patient is discharged home without further incident. Medical Records I reviewed the patient's medical records. Lab Data I reviewed the patient's lab results. 07/17/25 22:17 07/17/25 22:17 Labs/Radiology: Radiology Impressions Chest X-Ray 07/17/25 21:29 IMPRESSION: Probable retrocardiac airspace opacity, concerning for infectious infiltrate, clinical correlation. Laboratory Results WBC 3.15 10^3/uL (3.29-11.43) L 07/17/25 22:17 RBC 4.10 10^6/uL (3.85-5.65) 07/17/25 22:17 Hgb 11.80 g/dL (11.27-16.99) 07/17/25 22:17 Hct 35.3 % (37-53) L 07/17/25 22:17 MCV 86.1 fl (82-101) 07/17/25 22:17 MCH 28.8 pg (27-33) 07/17/25 22:17 MCHC 33.4 g/dL (30-55) 07/17/25 22:17 RDW 13.6 % (12.1-15.1) 07/17/25 22:17 Plt Count 330 10^3/cmm (157-399) 07/17/25 22:17 MPV 7.8 fL (7.4-10.4) 07/17/25 22:17 Neut % (Auto) 87.6 % 07/17/25 22:17 Lymph % (Auto) 8.3 % 07/17/25 22:17 [place] % (Auto) 3.5 % 07/17/25 22:17 Eos % (Auto) 0.3 % 07/17/25 22:17 Baso % (Auto) 0.0 % 07/17/25 22:17 Neut # (Auto) 2.76 10^3/uL (1.8-7.7) 07/17/25 22:17 Lymph # (Auto) 0.3 10^3/uL (0.8-4.8) L 07/17/25 22:17 [place] # (Auto) 0.1 10^3/uL (0.2-0.9) L 07/17/25 22:17 Eos # (Auto) 0.0 10^3/uL (0.0-0.8) 07/17/25 22:17 Baso # (Auto) 0.0 10^3/uL (0.0-0.1) 07/17/25 22:17 Nucleated RBC % (auto) 0 % 07/17/25 22:17 Nucleated RBCs # 0.0 /100WBC 07/17/25 22:17 D-Dimer 0.33 ug/mLFEU (0-0.59) 07/17/25 22:17 Sodium 132 mmol/L (136-145) L 07/17/25 22:17 Potassium 4.0 mmol/L (3.5-5.1) 07/17/25 22:17 Chloride 92 mmol/L (98-107) L 07/17/25 22:17 Carbon Dioxide 33 mmol/L (22-29) H 07/17/25 22:17 Anion Gap 11.0 (5-19) 07/17/25 22:17 BUN 7 mg/dL (8-23) L 07/17/25 22:17 Creatinine 0.4 mg/dL (0.7-1.2) L 07/17/25 22:17 GFR Calculation 212.7 mL/min (90-130) H 07/17/25 22:17 Glucose 132 mg/dL (65-115) H 07/17/25 22:17 Calculated Osmolality 274 mOsm/kg (285-295) L 07/17/25 22:17 Calcium 8.9 mg/dL (8.5-10.5) 07/17/25 22:17 Total Bilirubin 0.3 mg/dL (0.15-1.2) 07/17/25 22:17 AST 14 U/L (0-40) 07/17/25 22:17 ALT 11 U/L (0-41) 07/17/25 22:17 Alkaline Phosphatase 75 U/L (40-130) 07/17/25 22:17 NT-Pro-B Natriuret Pep 85 pg/mL (0-125) 07/17/25 22:17 Total Protein 6.5 g/dL (6.6-8.7) L 07/17/25 22:17 Albumin 3.5 g/dL (3.5-5.2) 07/17/25 22:17 Globulin 3.0 g/dL (1.3-4.6) 07/17/25 22:17 Influenza A (PCR) Negative (Negative) 07/17/25 21:58 Influenza Type B (PCR) Negative (Negative) 07/17/25 21:58 RSV (PCR) Negative (Negative) 07/17/25 21:58 SARS-CoV-2 (PCR) Positive (Negative) A 07/17/25 21:58 All radiology interpretation(s) finalized by discharge Discharge Plan Discharge Patient Disposition: Home Clinical Impression: COVID Leukopenia Qualifiers: Leukopenia type: neutropenia Neutropenia type: due to infection Qualified Code(s): D70.3 - Neutropenia due to infection Condition: Stable Prescriptions: New Paxlovid 300 mg (150 mg x 2)-100 mg tablets,dose pack See Rx Instructions .ROUTE .COMPLEX Qty: 30 0RF Rx Instructions: orally per package directions doxycycline hyclate 100 mg capsule 100 mg PO BID 10 Days Qty: 20 0RF methylprednisolone [Medrol (Rl)] 4 mg tablets,dose pack See Rx Instructions .ROUTE .COMPLEX Qty: 21 0RF Rx Instructions: for 6 days No Action albuterol sulfate [Ventolin HFA] 90 mcg/actuation HFA aerosol inhaler 2 puff INHALATION Q4H PRN (Reason: Shortness Of Breath) Patient Comments: patient stated takes 2 extra puffs due to mold in trailer fluticasone propion-salmeterol [Advair Diskus] 500-50 mcg/dose blister with device 1 inh inhalation BID 90 Days Qty: 180 3RF Rx Instructions: Brand name advair only (DME) Portable Oxygen Concentrator See Rx Instructions .Route .MEDSUPPLY Qty: 1 0RF Rx Instructions: As directed; 2 liters (DME) walker standard See Rx Instructions .Route .MEDSUPPLY Qty: 1 0RF Rx Instructions: As directed tiotropium bromide 18 mcg capsule, w/inhalation device See Rx Instructions .ROUTE .COMPLEX Qty: 90 3RF Dose Instruction: INHALE THE CONTENTS OF 1 CAPSULE VIA INHALATION DEVICE DAILY Rx Instructions: INHALE THE CONTENTS OF 1 CAPSULE VIA INHALATION DEVICE DAILY Discharge Orders: Discharge ED (Routine); Ordered 07/17/25 Ordered By: Chelita Mendez Referrals: Baltazar Simon DO [Primary Care Provider, Family Practice] Discharge Diet: Usual diet Discharge Activity: Resume usual activity Patient Instructions: COVID-19 (Coronavirus Disease 2019) (ED), Patient Portal & [facility]warya Instructions Activity Restrictions/Additional Instructions: - Stay isolated for 5 days - Wear a mask when you leave your room, when you are in the car to get home, and until you are at your house. -At the pharmacy: Steroid Dosepak, Paxlovid, doxycycline. Steroid Dosepak is for the inflammatory response, Paxlovid is to treat COVID. Start as soon as possible. Doxycycline is to treat secondary infection. Make sure you take with food. - Return to ED with oxygen saturation less than 87% on 6 L, worsening shortness of breath Thank you for choosing [facility] for your healthcare needs today. You have been screened and evaluated and felt safe for discharge. Health conditions do change or evolve sometimes and as such it is important that you follow up with your Primary Doctor to be re checked, 3-5 days is a general good time frame for follow up. You are always welcome to return to the ED for re assessment if your symptoms are worsening or you have new concerns Print Language: [place] Coding Level of Care Code ED [employer] [facility] for Alissa Hinson
[2025-07-17 21:27] VITALS: BP 114/75; PULSE 101; O2SAT 92
--- NOTE | 2025-07-17 21:29 | XRR_ITS ---
PROCEDURE INFORMATION: Exam: XR Chest Exam date and time: 07/17/2025 9:39 PM Age: 70 years old Clinical indication: Shortness of breath; Additional info: Short of breath, patient is now consenting TECHNIQUE: Imaging protocol: Radiologic exam of the chest. Views: 1 view. COMPARISON: CT chest con [id number] 06/29/2022 10:14 AM FINDINGS: Lungs: Probable retrocardiac airspace opacity, concerning for infectious infiltrate, clinical correlation. Pleural spaces: Unremarkable. No pleural effusion. No pneumothorax. Heart/Mediastinum: Unremarkable. No cardiomegaly. Bones/joints: Unremarkable. XR/XR chest 1V portable [id number] IMPRESSION: Probable retrocardiac airspace opacity, concerning for infectious infiltrate, clinical correlation.
[2025-07-17 22:41] LABS: Hematocrit 35.3 % (37-53); Hemoglobin 11.80 g/dL (11.27-16.99); Mean Corpuscular HGB Conc 33.4 g/dL (30-55); Mean Corpuscular Hemoglobin 28.8 pg (27-33); Mean Corpuscular Volume 86.1 fl (82-101); Nucleated Red Blood Cells % 0 %; Platelet Count 330 10^3/cmm (157-399); Red Blood Count 4.10 10^6/uL (3.85-5.65); White Blood Count 3.15 10^3/uL (3.29-11.43)
[2025-07-17 22:46] LABS: Respiratory Syncytial Virus Ce NEGATIVE (Negative)
[2025-07-17 22:58] LABS: SARS-CoV-2 PCR Positive (Negative)
[2025-07-17 23:18] LABS: Alanine Aminotransferase 11 U/L (0-41); Albumin Level 3.5 g/dL (3.5-5.2); Alkaline Phosphatase 75 U/L (40-130); Anion Gap 11.0 (5-19); Aspartate Amino Transferase 14 U/L (0-40); Blood Urea Nitrogen 7 mg/dL (8-23); Calcium 8.9 mg/dL (8.5-10.5); Carbon Dioxide 33 mmol/L (22-29); Chloride 92 mmol/L (98-107); Globulin 3.0 g/dL (1.3-4.6); Glucose 132 mg/dL (65-115); NT Pro B Type Natriuretic Pept 85 pg/mL (0-125); Osmolality Calculated 274 mOsm/kg (285-295); Potassium 4.0 mmol/L (3.5-5.1); Sodium 132 mmol/L (136-145); Total Protein 6.5 g/dL (6.6-8.7)
[2025-07-17 23:43] VITALS: BP 114/71; PULSE 80; O2SAT 95
== END 2025-07-17 23:44 | disposition home or self-care (01) ==
PROVIDERS: Emergency Provider Physician Assistant; PCP Family Medicine
DX: U07.1 COVID-19 (principal); D70.3 Neutropenia due to infection; Z11.52 Encounter for screening for COVID-19; Z87.891 Personal history of nicotine dependence; J44.9 Chronic obstructive pulmonary disease, unspecified; Z99.81 Dependence on supplemental oxygen
CPT/HCPCS: 36415; 71045; 80053; 83880; 85025; 85378; 87637; 93005; 99285